=== PATIENT | female | born 1950 | race Hispanic/Latino ===

== ENCOUNTER 2018-06-28 11:42 | Inpatient (IN) | payer MEDICARE ==
--- NOTE | 2018-06-28 12:14 | Emergency Department Report ---
Blank Doc - Documentation Documentation: This is a 67 y.o. female that presents with wound to right heel and left heel. PMH diabetes. She was seen by podiatry this morning and sent here for further evaluation. Ordered labs and XR of bilateral feet. Fast track for further evaluation.
[2018-06-28 12:49] LABS: Basophils # (Auto) 0.1 K/mm3 (0.0-0.1); Basophils % (Auto) 1.1 % (0.0-1.8); Eosinophils # (Auto) 0.3 K/mm3 (0.0-0.4); Eosinophils % (Auto) 3.2 % (0.0-4.3); Hematocrit 38.8 % (30.3-42.9); Hemoglobin 13.5 gm/dl (10.1-14.3); Lymphocytes # (Auto) 1.4 K/mm3 (1.2-5.4); Lymphocytes % (Auto) 14.2 % (13.4-35.0); Mean Corpuscular HGB Conc 35 % (30-34); Mean Corpuscular Volume 95 fl (79-97); Platelet Count 423 K/mm3 (140-440); Red Blood Count 4.07 M/mm3 (3.65-5.03); Red Cell Distribution Width 14.7 % (13.2-15.2)
[2018-06-28 13:14] LABS: Albumin 3.3 g/dL (3.9-5); Calcium 9.5 mg/dL (8.4-10.2)
[2018-06-28] MEDS ORDERED: VANCOMYCIN 1,500 MG in NACL 0.9% 500 ML 500 ML IV ONE (14:20)
[2018-06-28] MEDS ORDERED: ZOFRAN IV ONE (14:21)
[2018-06-28] MEDS ORDERED: MORPHINE IV ONE (14:21)
--- NOTE | 2018-06-28 14:31 | Emergency Department Report ---
- General Chief Complaint: Wound/Laceration Stated Complaint: INFECTION ON FEET Time Seen by Provider: 06/28/18 12:10 Source: patient, family Mode of arrival: Wheelchair Limitations: No Limitations - History of Present Illness Initial Comments: 67 year old female past medical history of diabetes and end-stage renal disease on dialysis presents to the hospital complaining of infection to bilateral tubal foot ulcers. Patient recently moved to the area. After seeing a primary care doctor she was referred to a foot doctor today. After initial evaluation patient was told to go to [facility] for admission and antibiotics. Patient cannot recall the name of the physician that evaluated her but the group is [facility] located at [address] [place] [address], [address] [place] [address]. Patient has had these foot ulcers for "a while" but had been worse for the last several weeks. She complains of pain and drainage she denies fevers and states that her glucose has been fairly controlled. Patient receives dialysis Wednesday, Wednesday, and Wednesday. Spd Tech: Dr. Lincoln - Related Data Allergies Allergy/AdvReac Type Severity Reaction Status Date / Time No Known Allergies Allergy Verified 06/28/18 12:11 ED Review of Systems ROS: Stated complaint: INFECTION ON FEET Other details as noted in HPI Comment: All other systems reviewed and negative ED Past Medical Hx - Past Medical History Previous Medical History?: Yes Hx Diabetes: Yes Hx Renal Disease: Yes (dialysis Wednesday, Wednesday, Wednesday) - Surgical History Additional Surgical History: Hyst, knee - Social History Smoking Status: Current Every Day Smoker Substance Use Type: None ED Physical Exam - General Limitations: No Limitations - Other Other exam information: General: No limitations, patient is alert in no acute distress Head exam: Atraumatic, normocephalic Eyes exam: Normal appearance ENT: Moist mucous membrane Neck exam: Normal inspection, full range of motion, no meningismus nontender Respiratory exam: Clear to auscultation bilateral, no wheezes, rales, crackles Cardiovascular: Regular rhythm without tachycardia Abdomen: Soft, nondistended, and nontender, with normal bowel sounds, no rebound, or guarding Extremity: Full range of motion Back: Normal Inspection, full range of motion, no tenderness Neurologic: Alert, oriented x3, cranial nerves intact, no motor or sensory deficit Psychiatric: normal affect, normal mood Skin: Bilateral foot ulcers. Right foot has a 3 cm ulceration at the medial laureen t at the first MTP joint with yellow exudate. Positive warmth or erythema. Left foot has a 2-3 cm heel ulceration with yellow exudate. ED Course Vital Signs 06/28/18 12:11 Temperature 99.2 F Pulse Rate 100 H Respiratory 20 Rate Blood Pressure 134/82 O2 Sat by Pulse 97 Oximetry ED Medical Decision Making - Lab Data Result diagrams: 06/28/18 12:33 06/28/18 12:33 Lab Results 06/28/18 06/28/18 Range/Units 12:33 12:33 WBC 9.6 (4.5-11.0) K/mm3 RBC 4.07 (3.65-5.03) M/mm3 Hgb 13.5 (10.1-14.3) gm/dl Hct 38.8 (30.3-42.9) % MCV 95 (79-97) fl MCH 33 H (28-32) pg MCHC 35 H (30-34) % RDW 14.7 (13.2-15.2) % Plt Count 423 (140-440) K/mm3 Lymph % (Auto) 14.2 (13.4-35.0) % [place] % (Auto) 10.0 H (0.0-7.3) % Eos % (Auto) 3.2 (0.0-4.3) % Baso % (Auto) 1.1 (0.0-1.8) % Lymph # 1.4 (1.2-5.4) K/mm3 [place] # 1.0 H (0.0-0.8) K/mm3 Eos # 0.3 (0.0-0.4) K/mm3 Baso # 0.1 (0.0-0.1) K/mm3 Seg Neutrophils % 71.5 H (40.0-70.0) % Seg Neutrophils # 6.8 (1.8-7.7) K/mm3 Sodium 140 (137-145) mmol/L Potassium 4.1 (3.6-5.0) mmol/L Chloride 95.1 L (98-107) mmol/L Carbon Dioxide 27 (22-30) mmol/L Anion Gap 22 mmol/L BUN 22 H (7-17) mg/dL Creatinine 3.0 H (0.7-1.2) mg/dL Estimated GFR 16 ml/min BUN/Creatinine Ratio 7 % Glucose 243 H (65-100) mg/dL Calcium 9.5 (8.4-10.2) mg/dL Total Bilirubin 0.40 (0.1-1.2) mg/dL AST 33 (5-40) units/L ALT 31 (7-56) units/L Alkaline Phosphatase 196 H (35-129) units/L Total Protein 8.0 (6.3-8.2) g/dL Albumin 3.3 L (3.9-5) g/dL Albumin/Globulin Ratio 0.7 % - Medical Decision Making Positive bilateral diabetic foot infection/ulcerations. Vancomycin provided. Morphine/Zofran for pain. ESR and foot x-ray report pending at disposition. - Differential Diagnosis osteomyelitis, cellulitis, infected diabetic foot ulcer Critical Care Time: No Critical care attestation.: If time is entered above; I have spent that time in minutes in the direct care of this critically ill patient, excluding procedure time. ED Disposition Clinical Impression: Diabetic foot infection, ESRD on dialysis Disposition: OP ADMIT IP TO THIS HOSP Is pt being admited?: Yes Condition: Stable Time of Disposition: 14:33 (Dr Mitchell/hosp)
--- NOTE | 2018-06-28 14:51 | History and Physical Report ---
History of Present Illness Chief complaint: My foot is infected History of present illness: 67 YO Female with ESRD on HD(M,W,F), Nicotine Dependence, DM, present to ED for evaluation. Pt states that she has experienced redness, swelling, and purulent discharge from her heel wounds over the past week with worsening symptoms over the past 5 days. Pt was seen and evaluated by her PCP today and found to have diabetic foot ulcers. Pt instructed to seek further care at [facility]. Pt seen and evaluated in ED and found to have ESRD, and Bilateral foot cellulitis. Pt admitted to medical floor. Pt states that she is unsure of who her bed teacher is. Pt denies fever, chills, CP, palpitations, NVD, Trauma, BRBPR, productive c ough, or recent ill contacts. Pt admitted to [facility]. Nephrology consulted in ED. Past History Past Medical History: diabetes, ESRD Past Surgical History: Other (AVFistula) Social history: single, smoking Family history: diabetes Medications and Allergies Allergies Allergy/AdvReac Type Severity Reaction Status Date / Time No Known Allergies Allergy Verified 06/28/18 12:11 Home Medications Medication Instructions Recorded Confirmed Last Taken Type Amiodarone [Cordarone 200 MG TAB] 200 mg PO QDAY 06/28/18 06/28/18 Unknown History AtorvaSTATin [Lipitor] 10 mg PO QHS 06/28/18 06/28/18 Unknown History Clopidogrel Bisulfate [Plavix] 75 mg PO QDAY 06/28/18 06/28/18 Unknown History Doxepin [SINEquan] 100 mg PO QHS 06/28/18 06/28/18 Unknown History Gabapentin [Neurontin] 100 mg PO TID 06/28/18 06/28/18 Unknown History Insulin Detemir [Levemir Flextouch] 8 units SUB-Q DAILY 06/28/18 06/28/18 Unknown History Metoprolol Succinate [Toprol Xl] 25 mg PO DAILY 06/28/18 06/28/18 Unknown History Morphine Sulfate [Morphine Sulfate 60 mg PO Q12H 06/28/18 06/28/18 Unknown History ER] NIFEdipine [Nifedipine ER] 30 mg PO QDAY 06/28/18 06/28/18 Unknown History Oxycodone HCl [Roxicodone] 30 mg PO Q8H PRN 06/28/18 06/28/18 Unknown History Propafenone HCl 150 mg PO BID 06/28/18 06/28/18 Unknown History Sertraline [Zoloft] 100 mg PO QDAY 06/28/18 06/28/18 Unknown History Active Meds: Active Medications Vancomycin HCl 1,500 mg/ (Sodium Chloride) 530 mls @ 333 mls/hr IV ONCE ONE; Protocol Stop: 06/28/18 15:55 Review of Systems Constitutional: no weight loss, no weight gain, no fever, no chills Ears, nose, mouth and throat: no ear pain, no ear discharge, no tinnitis, no decreased hearing, no nose pain, no nasal congestion Breasts: no change in shape, no swelling, no mass Cardiovascular: no chest pain, no orthopnea, no palpitations, no rapid/irregular heart beat, no edema Respiratory: no cough, no cough with sputum, no excessive sputum Gastrointestinal: no abdominal pain, no nausea, no vomiting, no diarrhea, no constipation, no change in bowel habits Genitourinary Female: no pelvic pain, no flank pain, no menorrhagia, no dysuria, no urinary frequency, no urgency Menstruation: no premenarcheal, no post hysterectomy, no ammenorrhea, no ammenorrhea on BC, no period normal Rectal: no pain, no incontinence, no bleeding Musculoskeletal: no neck pain, no shooting arm pain, no arm numbness/tingling, no low back pain Integumentary: no rash, no pruritis, no redness, no sores, no wounds Neurological: no transient paralysis, no paralysis, no weakness, no parathesias, no numbness, no tingling Psychiatric: no anxiety, no memory loss, no change in sleep habits, no sleep disturbances, no insomnia, no change in appetite Endocrine: no cold intolerance, no heat intolerance, no polyphagia, no excessive thirst Hematologic/Lymphatic: no easy bruising, no easy bleeding Allergic/Immunologic: no urticaria, no allergic rhinitis, no wheezing Exam - Constitutional Vitals: Temp Pulse Resp BP Pulse Ox 99.2 F 100 H 20 134/82 97 06/28/18 12:11 06/28/18 12:11 06/28/18 12:11 06/28/18 12:11 06/28/18 12:11 General appearance: Present: mild distress - EENT Eyes: Present: PERRL ENT: hearing intact, clear oral mucosa - Neck Neck: Present: supple, normal ROM - Respiratory Respiratory effort: normal Respiratory: bilateral: CTA - Cardiovascular Heart Sounds: Present: S1 & S2. Absent: rub, click - Extremities Extremities: pulses symmetrical, No edema Peripheral Pulses: within normal limits - Abdominal General gastrointestinal: Present: soft, non-tender, non-distended, normal bowel sounds Female genitourinary: Present: normal - Integumentary Integumentary: Present: clear, warm, dry - Musculoskeletal Musculoskeletal: gait normal, strength equal bilaterally - Psychiatric Psychiatric: appropriate mood/affect, intact judgment & insight - Neurologic Neurologic: CNII-XII intact, moves all extremities Results - Labs CBC & Chem 7: 06/28/18 12:33 06/28/18 12:33 Labs: Abnormal lab results 06/28/18 06/28/18 Range/Units 12:33 12:33 MCH 33 H (28-32) pg MCHC 35 H (30-34) % [place] % (Auto) 10.0 H (0.0-7.3) % [place] # 1.0 H (0.0-0.8) K/mm3 Seg Neutrophils % 71.5 H (40.0-70.0) % Chloride 95.1 L (98-107) mmol/L BUN 22 H (7-17) mg/dL Creatinine 3.0 H (0.7-1.2) mg/dL Glucose 243 H (65-100) mg/dL Alkaline Phosphatase 196 H (35-129) units/L Albumin 3.3 L (3.9-5) g/dL Assessment and Plan - Patient Problems (1) ESRD on dialysis Current Visit: Yes Status: Acute Plan to address problem: Nephrology consulted in ED, strict I/O, daily weight, avoid nephrotoxic agents, supportive care, dialysis as per renal team. (2) Diabetes Current Visit: Yes Status: Acute Plan to address problem: ADA diet, insulin, accu check (3) Diabetic foot infection Current Visit: Yes Status: Acute Plan to address problem: IV antibiotic therapy, BLE MRI to evaluate for osteomyelitis, wound care, (4) DVT prophylaxis Current Visit: Yes Status: Acute Plan to address problem: SCD to BLE while in bed.
[2018-06-28] MEDS ORDERED: SODIUM CHLORIDE FLUSH SYRINGE 10 ML IV PRN (14:53)
[2018-06-28] MEDS ORDERED: PROVENTIL IH PRN (14:53)
[2018-06-28] MEDS ORDERED: ZOFRAN IV PRN (14:53)
[2018-06-28] MEDS ORDERED: TYLENOL PO PRN (14:53)
--- NOTE | 2018-06-28 15:47 | XRay Report ---
PROCEDURE: XR FOOT BILAT 2V TECHNIQUE: Both feet radiograph, 2 views each. HISTORY: wounds to alicia feet COMPARISONS: None currently available. FINDINGS: There is no acute fracture. There is no evidence for healing fracture. There is no acute dislocation. No significant arthrosis. RIGHT: Achilles enthesophyte and calcaneal plantar spur. Mild to moderate arthrosis at the midfoot, 1st MTP joint, and interphalangeal joints. Cortical irregularity and erosion at the lateral aspect of the 5th metatarsal head. Vascular calcifications. There is no acute dislocation. There is no acute fracture. There is no evidence for healing fracture. There are no suspicious osseous lesions. There are no radiopaque foreign objects. LEFT: Achilles enthesophyte and calcaneal plantar spur. Mild arthrosis at the midfoot and interphalangeal joints. Vascular calcifications. There is no acute dislocation. There is no acute fracture. There is no evidence for healing fracture. There is no cortical destruction to suggest osteomyelitis. There are no suspicious osseous lesions. There are no radiopaque foreign objects. IMPRESSION: * Arthritic erosion versus cortical destruction at the 5th metatarsal head. Please correlate for pos sible osteomyelitis. * Multifocal arthrosis in both feet. * Vascular calcifications. This document is electronically signed by Samm Tellez MD., June 28 2018 03:45:37 PM ET
[2018-06-28] MEDS ORDERED: NON-FORMULARY (Oxycodone Hcl [Roxicodone] 30 MG) PO SCH (17:00)
[2018-06-28] MEDS ORDERED: MORPHINE SULFATE 60 MG PO SCH (17:00)
[2018-06-28] MEDS ORDERED: NON-FORMULARY (Oxycodone Hcl [Roxicodone] 30 MG) PO PRN (17:28)
[2018-06-28] MEDS: MS CONTIN ER PO SCH (17:42)
[2018-06-28] MEDS ORDERED: VANCOMYCIN 1,000 MG in NACL 0.9% 500 ML 500 ML IV ONE (19:27)
[2018-06-28] MEDS ORDERED: VANCOMYCIN/NS 1 GM/250 ML 1 GM/250 ML BAG IV SCH (20:00)
[2018-06-28] MEDS: NEURONTIN PO SCH (20:27)
[2018-06-28] MEDS: ROXICODONE PO PRN (20:27)
[2018-06-28] MEDS: SINEquan PO SCH (22:13)
[2018-06-28] MEDS: RYTHMOL PO SCH (22:13)
[2018-06-28] MEDS: SODIUM CHLORIDE FLUSH SYRINGE 10 ML IV SCH (22:14)
[2018-06-29] MEDS: MS CONTIN ER PO SCH (06:00)
[2018-06-29] MEDS: NEURONTIN PO SCH ×3 (07:29→20:38)
[2018-06-29] MEDS ORDERED: INSULIN DETEMIR 8 UNIT SUB-Q SCH (10:00)
[2018-06-29] MEDS ORDERED: NIFEDIPINE 30 MG PO SCH (10:00)
[2018-06-29] MEDS: PLAVIX PO SCH (10:15)
[2018-06-29] MEDS: RYTHMOL PO SCH ×2 (10:15→21:17)
[2018-06-29] MEDS: ZOLOFT PO SCH (10:15)
[2018-06-29] MEDS: CORDARONE PO SCH (10:16)
[2018-06-29] MEDS: LANTUS SUB-Q SCH (10:16)
[2018-06-29] MEDS: TOPROL XL PO SCH (10:16)
[2018-06-29] MEDS: SODIUM CHLORIDE FLUSH SYRINGE 10 ML IV SCH ×2 (10:17→21:17)
[2018-06-29] MEDS: ROXICODONE PO PRN ×2 (10:21→21:07)
--- NOTE | 2018-06-29 11:15 | Progress Note ---
Assessment and Plan Assessment and plan: Patient is a 67 YO Female with ESRD on HD(M,W,F), Nicotine Dependence, DM, chronic pain syndrome on continued opioid medication and recently relocated to [place] from [place] present to ED for evaluation. Pt states that she has experienced redness, swelling, and purulent discharge from her heel wounds over the past week with worsening symptoms over the past 5 days. Pt was seen and evaluated by her PCP today and found to have diabetic foot ulcers. Pt instructed to seek further care at [facility] By the foot doctor. she denies any fever. Pt seen and evaluated in ED and found to have ESRD, and Bilateral foot c ellulitis. Bilateral Diabetic Foot Infection Cellulitis Diabetic Mellitus with Hyperglycemia ESRD on HD Chronic Opioid dependance Plan Continue supportive care Wound care consulted Surgery consult for possible debridment vascular consult for further evaluation in respect to poor wound healing in diabetic patient Continue accucheck and blood glucose control Possible ID consult for duration of Tx if osteomylitis Awaiting imaging study report Continue abx Recommend pain management outpatient DVT/GI prophy History Interval history: Patient is seen today for: Bilateral lower extremity cellulitis with ulceration Seen and examined at bedside; 24hour events reviewed; nursing staff ; no adverse overnight events reported to me; Denies any chest pain, nausea, vomiting, diarrhea No fever noted blood pressure controlled She continues to request for pain medication and requested for IV compression. She uses a wheelchair to get around. Hospitalist Physical - Physical exam Narrative exam: VITAL SIGNS: Reviewed. GENERAL: The patient appeared well nourished and normally developed. Vital signs as documented. HEAD: No signs of head trauma. EYES: Pupils are equal. Extraocular motions intact. EARS: Hearing grossly intact. MOUTH: Oropharynx is normal. NECK: No adenopathy, no JVD. CHEST: Chest with clear breath sounds bilaterally. No wheezes, rales, or rhonchi. CARDIAC: Regular rate and rhythm. S1 and S2, without murmurs, gallops, or rubs. VASCULAR: No Edema. Peripheral pulses normal and equal in all extremities. ABDOMEN: Soft, without detectable tenderness. No sign of distention. No rebound or guarding, and no masses palpated. Bowel Sounds normal. MUSCULOSKELETAL: Good range of motion of all major joints. Extremities without clubbing, cyanosis or edema. NEUROLOGIC EXAM: Alert and oriented x 3. No focal sensory or strength deficits. Speech normal. Follows commands. PSYCHIATRIC: Mood normal. SKIN: Lateral lower extremity ulceration of the heel, lateral aspect of the fluids, with noted drainage. Dressing in place. - Constitutional Vitals: Temp Pulse Resp BP Pulse Ox 98.1 F 87 20 129/64 98 06/29/18 07:10 06/29/18 10:16 06/29/18 07:10 06/29/18 10:16 06/29/18 07:10 General appearance: Present: mild distress Results - Labs CBC & Chem 7: 06/28/18 12:33 06/28/18 12:33 Labs: Laboratory Last Values WBC 9.6 K/mm3 (4.5-11.0) 06/28/18 12:33 RBC 4.07 M/mm3 (3.65-5.03) 06/28/18 12:33 Hgb 13.5 gm/dl (10.1-14.3) 06/28/18 12:33 Hct 38.8 % (30.3-42.9) 06/28/18 12:33 MCV 95 fl (79-97) 06/28/18 12:33 MCH 33 pg (28-32) H 06/28/18 12:33 MCHC 35 % (30-34) H 06/28/18 12:33 RDW 14.7 % (13.2-15.2) 06/28/18 12:33 Plt Count 423 K/mm3 (140-440) 06/28/18 12:33 Lymph % (Auto) 14.2 % (13.4-35.0) 06/28/18 12:33 [place] % (Auto) 10.0 % (0.0-7.3) H 06/28/18 12:33 Eos % (Auto) 3.2 % (0.0-4.3) 06/28/18 12:33 Baso % (Auto) 1.1 % (0.0-1.8) 06/28/18 12:33 Lymph # 1.4 K/mm3 (1.2-5.4) 06/28/18 12:33 [place] # 1.0 K/mm3 (0.0-0.8) H 06/28/18 12:33 Eos # 0.3 K/mm3 (0.0-0.4) 06/28/18 12:33 Baso # 0.1 K/mm3 (0.0-0.1) 06/28/18 12:33 Seg Neutrophils % 71.5 % (40.0-70.0) H 06/28/18 12:33 Seg Neutrophils # 6.8 K/mm3 (1.8-7.7) 06/28/18 12:33 ESR 68 mm/Hr (0-20) 06/28/18 14:28 Sodium 140 mmol/L (137-145) 06/28/18 12:33 Potassium 4.1 mmol/L (3.6-5.0) 06/28/18 12:33 Chloride 95.1 mmol/L (98-107) L 06/28/18 12:33 Carbon Dioxide 27 mmol/L (22-30) 06/28/18 12:33 Anion Gap 22 mmol/L 06/28/18 12:33 BUN 22 mg/dL (7-17) H 06/28/18 12:33 Creatinine 3.0 mg/dL (0.7-1.2) H 06/28/18 12:33 Estimated GFR 16 ml/min 06/28/18 12:33 BUN/Creatinine Ratio 7 % 06/28/18 12:33 Glucose 243 mg/dL (65-100) H 06/28/18 12:33 POC Glucose 111 (70-105) H 06/29/18 10:18 Calcium 9.5 mg/dL (8.4-10.2) 06/28/18 12:33 Total Bilirubin 0.40 mg/dL (0.1-1.2) 06/28/18 12:33 AST 33 units/L (5-40) 06/28/18 12:33 ALT 31 units/L (7-56) 06/28/18 12:33 Alkaline Phosphatase 196 units/L (35-129) H 06/28/18 12:33 Total Protein 8.0 g/dL (6.3-8.2) 06/28/18 12:33 Albumin 3.3 g/dL (3.9-5) L 06/28/18 12:33 Albumin/Globulin Ratio 0.7 % 06/28/18 12:33 - Imaging and Cardiology Imaging and Cardiology: FOOT XRAY: ARTHRITIC EROSION VS CORTICAL DESTRUCTION AT THE 5TH METATARSAL HEAD. MULTIFOCAL ARTHROSIS IN BOTH FEET. VASCULAR CALCIFICATIONS
--- NOTE | 2018-06-29 12:21 | Consultation ---
History of Present Illness - Reason for Consult Consult date: 06/29/18 end stage renal disease - History of Present Illness This is a 67 year old female who presented to this E.R for management of her diabetic wounds. Patient was referred to [facility] wound care clinic by this Nephrology [employer] and patient went there yesterday but they advised patient to go to the E.R after examining her wounds due to severity of wound infection however, patient came to this E.R instead as it is closer to her home. Patient has history of ESRD and is on hemodialysis every M,W,F at [facility] under Dr. Lincoln/Breanna Zeng NP. We are being consulted for management of this patient's ESRD. Past History Past Medical History: diabetes, ESRD Past Surgical History: Other (AV Fistula) Social history: single, smoking Family history: diabetes Medications and Allergies Allergies Allergy/AdvReac Type Severity Reaction Status Date / Time No Known Allergies Allergy Verified 06/28/18 12:11 Home Medications Medication Instructions Recorded Confirmed Last Taken Type Amiodarone [Cordarone 200 MG TAB] 200 mg PO QDAY 06/28/18 06/28/18 Unknown History AtorvaSTATin [Lipitor] 10 mg PO QHS 06/28/18 06/28/18 Unknown History Clopidogrel Bisulfate [Plavix] 75 mg PO QDAY 06/28/18 06/28/18 Unknown History Doxepin [SINEquan] 100 mg PO QHS 06/28/18 06/28/18 Unknown History Gabapentin [Neurontin] 100 mg PO TID 06/28/18 06/28/18 Unknown History Insulin Detemir [Levemir Flextouch] 8 units SUB-Q DAILY 06/28/18 06/28/18 Unknown History Metoprolol Succinate [Toprol Xl] 25 mg PO DAILY 06/28/18 06/28/18 Unknown History Morphine Sulfate [Morphine Sulfate 60 mg PO Q12H 06/28/18 06/28/18 Unknown History ER] NIFEdipine [Nifedipine ER] 30 mg PO QDAY 06/28/18 06/28/18 Unknown History Oxycodone HCl [Roxicodone] 30 mg PO Q8H PRN 06/28/18 06/28/18 Unknown History Propafenone HCl 150 mg PO BID 06/28/18 06/28/18 Unknown History Sertraline [Zoloft] 100 mg PO QDAY 06/28/18 06/28/18 Unknown History Active Meds: Active Medications Acetaminophen (Tylenol) 650 mg PO Q4H PRN PRN Reason: Pain MILD(1-3)/Fever >100.5/LIANG Albuterol (Proventil) 2.5 mg IH Q4HRT PRN PRN Reason: Shortness Of Breath Amiodarone HCl (Cordarone) 200 mg PO QDAY [facility] Last Admin: 06/29/18 10:16 Dose: 200 mg Documented by: Atorvastatin Calcium (Lipitor) 10 mg PO QHS [facility] Last Admin: 06/28/18 22:13 Dose: 10 mg Documented by: Clopidogrel Bisulfate (Plavix) 75 mg PO QDAY [facility] Last Admin: 06/29/18 10:15 Dose: 75 mg Documented by: Doxepin HCl (Sinequan) 100 mg PO QHS [facility] Last Admin: 06/28/18 22:13 Dose: 100 mg Documented by: Gabapentin (Neurontin) 100 mg PO TID [facility] Last Admin: 06/29/18 07:29 Dose: 100 mg Documented by: Insulin Glargine (Lantus) 8 units SUB-Q QDAY [facility] Last Admin: 06/29/18 10:16 Dose: Not Given Documented by: Metoprolol Succinate (Toprol Xl) 25 mg PO DAILY [facility] Last Admin: 06/29/18 10:16 Dose: 25 mg Documented by: Morphine Sulfate (Ms Contin Er) 60 mg PO Q12H [facility] Last Admin: 06/29/18 06:00 Dose: 60 mg Documented by: Ondansetron HCl (Zofran) 4 mg IV Q8H PRN PRN Reason: Nausea And Vomiting Oxycodone HCl (Roxicodone) 30 mg PO Q8H PRN PRN Reason: Pain, Moderate (4-6) Last Admin: 06/29/18 10:21 Dose: 30 mg Documented by: Propafenone HCl (Rythmol) 150 mg PO BID [facility] Last Admin: 06/29/18 10:15 Dose: 150 mg Documented by: Sertraline HCl (Zoloft) 100 mg PO QDAY [facility] Last Admin: 06/29/18 10:15 Dose: 100 mg Documented by: Sodium Chloride (Sodium Chloride Flush Syringe 10 Ml) 10 ml IV BID [facility] Last Admin: 06/29/18 10:17 Dose: 10 ml Documented by: Sodium Chloride (Sodium Chloride Flush Syringe 10 Ml) 10 ml IV PRN PRN PRN Reason: LINE FLUSH Review of Systems Constitutional: fatigue, no weight loss, no weight gain, no fever, no chills Ears, nose, mouth and throat: no ear pain, no ear discharge, no tinnitis, no decreased hearing, no nose pain, no nasal congestion Cardiovascular: no chest pain, no orthopnea, no palpitations, no rapid/irregular heart beat Respiratory: no cough with sputum, no excessive sputum, no hemoptysis Gastrointestinal: no nausea, no vomiting, no diarrhea, no constipation, no change in bowel habits Musculoskeletal: no neck stiffness, no neck pain, no shooting arm pain, no arm numbness/tingling, no low back pain Integumentary: wounds Neurological: no head injury, no transient paralysis, no paralysis Psychiatric: no anxiety, no memory loss, no change in sleep habits, no sleep disturbances Endocrine: no cold intolerance, no heat intolerance, no polyphagia, no excessive thirst Exam - Vital Signs Vital signs: Vital Signs Temp Pulse Resp BP Pulse Ox 99.2 F 100 H 20 134/82 97 06/28/18 12:11 06/28/18 12:11 06/28/18 12:11 06/28/18 12:11 06/28/18 12:11 - General Appearance General appearance: well-developed, well-nourished, fatigue EENT: ATNC, PERRL, hearing intact, vision intact Neck: Present: neck supple, trachea midline Respiratory: Decreased Breath Sounds Heart: regular, S1S2 Gastrointestinal: Present: normoactive bowel sounds Integumentary: warm and dry, ulcer Neurologic: alert and oriented x3 Musculoskeletal: Present: joint swelling, other (Gauze dressing to wounds noted on feet. Left AVF intact) Results - Lab Results 06/28/18 12:33 06/28/18 12:33 Most recent lab results Calcium 9.5 mg/dL (8.4-10.2) 06/28/18 12:33 Assessment and Plan End Stage Renal Disease on hemodialysis: -Hemodialysis today for UF and clearance -Fluid restriction of 1 liter per day -Renally dose medications -Obtain daily weights -Monitor I/O's -Assess dialysis needs daily Bilateral Diabetic Foot Infection: Cellulitis: -Wound care onboard -Foot x-ray- Arthritic erosion vs cortical destruction at the 5th metatarsal head. Correlate for possible osteoarthritis. -MRI of lower extremity-pending -Vascular consult and General surgery consulted for possible wound debridement vs other interventions Diabetic Mellitus: -On Insulin -As per primary team Chronic Pain: Narcotic Dependence: -On Narcotics -As per primary
--- NOTE | 2018-06-29 13:10 | Magnetic Resonance Report ---
MRI LEFT FOOT AND ANKLE WITHOUT CONTRAST: 06/29/18 CLINICAL: Bilateral soft tissue wounds of the feet. COMPARISON:None. TECHNIQUE: Sagittal, coronal and axial T1, coronal and axial T2 fat sat, sagittal STIR noncontrast sequences on a 1.5 Angelica magnet. The images are merely upper the midfoot and hindfoot with only the forefoot imaged on sagittal sequences. FINDINGS: A soft tissue ulcer of the medial hindfoot with a tract of air extending to bone. There is mild soft tissue edema adjacent to the tract. The calcaneus is intact with no erosion of the cortex and no marrow edema. The rest of the bones are normal. Mild deep soft tissue edema of the medial midfoot and proximal forefoot. No soft tissue abscess or fluid collection. Mild fluid in the lateral talocalcaneal joint. The peroneal tendons are intact and the medial flexor tendons are intact. Mild fluid in the tendon sheaths of the flexor houses longus and flexor digitorum longus tendon sheaths. Mild fluid in the tendon sheath at the conjoined peroneal tendon. Mild diffuse subcutaneous soft tissue edema of the entire foot. IMPRESSION: Soft tissue ulcer of the medial hindfoot with a tract extending to bone. However, no evidence of osteomyelitis. Nonspecific soft tissue edema and no abscess.
--- NOTE | 2018-06-29 13:51 | Magnetic Resonance Report ---
MRI RIGHT FOOT WITHOUT CONTRAST: 06/29/18 CLINICAL: Osteomyelitis. COMPARISON:08/28/18 foot x-ray TECHNIQUE: Sagittal, coronal and axial T1, coronal and axial T2 fat sat, sagittal STIR noncontrast sequences on a 1.5 Angelica magnet. FINDINGS: A small soft tissue ulcer at the medial aspect of the first MTP joint. Marrow edema of the great toe involves the distal first metatarsal and most of the proximal phalanx of the great toe. This is exhibited by heterogeneous decreased T1 signal and hyperintense signal on T2 fat sat and STIR. Focal cortical erosion of the medial aspect of the distal first metatarsal correlates with erosion identified on the x-ray. Similar findings are identified involving the fifth toe. A small soft tissue ulcer at the lateral aspect of the distal fifth metatarsal. Marrow edema of the distal fifth metatarsal with mild decreased T1 signal. T2 hyperintensity involves a greater portion of the fifth metatarsal as well as the phalanges of the fifth toe. Moderate soft tissue edema of the forefoot and midfoot as well as deep soft tissue edema. No abscess. The muscles and tendons are unremarkable. IMPRESSION: Osteomyelitis involving the distal first metatarsal and the distal fifth metatarsal. No abscess.
--- NOTE | 2018-06-29 15:07 | Consultation ---
History of Present Illness Consult date: 06/29/18 Chief complaint: bilateral foot wounds - History of present illness History of present illness: 67 yo F with hx of diabetes, ESRD on HD, and toe wound presents to ER with c/o worsening foot wounds. The patient recently moved here from [place] where she was being followed by a wound care doctor. She has been here for 2 weeks and states she was not receiving the proper wound care because her daughter did not take her to her doctors appointments. She states the wounds were almost healed. No f/c, cp, sob, n/v, abd pain. She has had multiple RLE angiograms in the past and revascularization. She has had multiple debridements of the foot wounds. She has a hx of chronic pain. She continues to smoke but states she has cut down f rom 1 1/2 packs per day to 10 cigarettes every few days. Past History Past Medical History: diabetes, ESRD Past Surgical History: Other (AV Fistula, RLE angiogram, multiple foot debridements) Social history: single, smoking Family history: diabetes Medications and Allergies Allergies Allergy/AdvReac Type Severity Reaction Status Date / Time No Known Allergies Allergy Verified 06/28/18 12:11 Home Medications Medication Instructions Recorded Confirmed Last Taken Type Amiodarone [Cordarone 200 MG TAB] 200 mg PO QDAY 06/28/18 06/28/18 Unknown History AtorvaSTATin [Lipitor] 10 mg PO QHS 06/28/18 06/28/18 Unknown History Clopidogrel Bisulfate [Plavix] 75 mg PO QDAY 06/28/18 06/28/18 Unknown History Doxepin [SINEquan] 100 mg PO QHS 06/28/18 06/28/18 Unknown History Gabapentin [Neurontin] 100 mg PO TID 06/28/18 06/28/18 Unknown History Insulin Detemir [Levemir Flextouch] 8 units SUB-Q DAILY 06/28/18 06/28/18 Unknown History Metoprolol Succinate [Toprol Xl] 25 mg PO DAILY 06/28/18 06/28/18 Unknown History Morphine Sulfate [Morphine Sulfate 60 mg PO Q12H 06/28/18 06/28/18 Unknown History ER] NIFEdipine [Nifedipine ER] 30 mg PO QDAY 06/28/18 06/28/18 Unknown History Oxycodone HCl [Roxicodone] 30 mg PO Q8H PRN 06/28/18 06/28/18 Unknown History Propafenone HCl 150 mg PO BID 06/28/18 06/28/18 Unknown History Sertraline [Zoloft] 100 mg PO QDAY 06/28/18 06/28/18 Unknown History Active Meds: Active Medications Acetaminophen (Tylenol) 650 mg PO Q4H PRN PRN Reason: Pain MILD(1-3)/Fever >100.5/LIANG Albuterol (Proventil) 2.5 mg IH Q4HRT PRN PRN Reason: Shortness Of Breath Amiodarone HCl (Cordarone) 200 mg PO QDAY [facility] Last Admin: 06/29/18 10:16 Dose: 200 mg Documented by: Atorvastatin Calcium (Lipitor) 10 mg PO QHS [facility] Last Admin: 06/28/18 22:13 Dose: 10 mg Documented by: Clopidogrel Bisulfate (Plavix) 75 mg PO QDAY [facility] Last Admin: 06/29/18 10:15 Dose: 75 mg Documented by: Doxepin HCl (Sinequan) 100 mg PO QHS [facility] Last Admin: 06/28/18 22:13 Dose: 100 mg Documented by: Gabapentin (Neurontin) 100 mg PO TID [facility] Last Admin: 06/29/18 13:10 Dose: 100 mg Documented by: Insulin Glargine (Lantus) 8 units SUB-Q QDAY [facility] Last Admin: 06/29/18 10:16 Dose: Not Given Documented by: Metoprolol Succinate (Toprol Xl) 25 mg PO DAILY [facility] Last Admin: 06/29/18 10:16 Dose: 25 mg Documented by: Morphine Sulfate (Ms Contin Er) 60 mg PO Q12H [facility] Last Admin: 06/29/18 06:00 Dose: 60 mg Documented by: Ondansetron HCl (Zofran) 4 mg IV Q8H PRN PRN Reason: Nausea And Vomiting Oxycodone HCl (Roxicodone) 30 mg PO Q8H PRN PRN Reason: Pain, Moderate (4-6) Last Admin: 06/29/18 10:21 Dose: 30 mg Documented by: Propafenone HCl (Rythmol) 150 mg PO BID [facility] Last Admin: 06/29/18 10:15 Dose: 150 mg Documented by: Sertraline HCl (Zoloft) 100 mg PO QDAY [facility] Last Admin: 06/29/18 10:15 Dose: 100 mg Documented by: Sodium Chloride (Sodium Chloride Flush Syringe 10 Ml) 10 ml IV BID [facility] Last Admin: 06/29/18 10:17 Dose: 10 ml Documented by: Sodium Chloride (Sodium Chloride Flush Syringe 10 Ml) 10 ml IV PRN PRN PRN Reason: LINE FLUSH Review of Systems All systems: negative (10 pt ROS performed and negative except for that listed in HPI) Exam Vital Signs Temp Pulse Resp BP Pulse Ox 99.2 F 100 H 20 134/82 97 06/28/18 12:11 06/28/18 12:11 06/28/18 12:11 06/28/18 12:11 06/28/18 12:11 Narrative exam: Gen: AAOx3. NAD ENT; no scleral icterus or conjunctival pallor CV: S1, S2+ Resp; even and unlabored Ext; dressings on bilateral feet c/d/i. Wound photos reviewed: slough and necrotic tissue of wound bed of bilateral foot wounds, associated cellulitis Results - Labs 06/28/18 12:33 06/28/18 12:33 Abnormal lab results 06/28/18 06/28/18 06/29/18 Range/Units 16:13 21:44 10:18 POC Glucose 199 H 154 H 111 H (70-105) - Imaging Additional studies: MRI bilateral LE Assessment and Plan 67 yo F with 1. necrotic diabetic foot wounds, bilateral 2. diabetes 3. tobacco dependence 4. ESRD on HD Plan: 1. Diabetic, renal diet. Add protein supplements. NPO p MN 2. plan for debridement in OR due to multiple wounds, potential need to debride to bone, and patient being on plavix. I discussed this with patient. She is agreeable and consent obtained. 3. Scheduled for HD today per nephro note 4. IV abx 5. will obtain cultures in OR 6. MRI - no osteo 7. prn pain control - pt on baseline chronic narcotics 8. vascular surgery on board, studies pending. 9. strict glucose control, obtain HbA1C 10. smoking cessation 11. albumin low, will obtain prealbumin. May need public relations assistant consult Thank you, please call with questions.
--- NOTE | 2018-06-29 16:26 | Consultation ---
History of Present Illness - Reason for Consult Consult date: 06/29/18 PAD with Bilateral lower ext Ulcerations Requesting physician: NOHEMI RESENDEZ - History of Present Illness This pt is a 67yo WF admitted via the [facility] ER due to bilateral non-healing lower ext ulcerations and suspected wound infections. The pt has ESRD and is on HD in addition to DM. She recently moved to [place] from [facility]. She states the wounds have been present for ~8months. She reports previous RLE arterial intervention due to underlying vascular dz, but she was unable to further elaborate. Past History Past Medical History: diabetes, ESRD Past Surgical History: Other (AV access, RLE angiogram with intervention, multiple foot debridements) Social history: single, smoking Family history: diabetes Medications and Allergies Allergies Allergy/AdvReac Type Severity Reaction Status Date / Time No Known Allergies Allergy Verified 06/28/18 12:11 Home Medications Medication Instructions Recorded Confirmed Last Taken Type Amiodarone [Cordarone 200 MG TAB] 200 mg PO QDAY 06/28/18 06/28/18 Unknown History AtorvaSTATin [Lipitor] 10 mg PO QHS 06/28/18 06/28/18 Unknown History Clopidogrel Bisulfate [Plavix] 75 mg PO QDAY 06/28/18 06/28/18 Unknown History Doxepin [SINEquan] 100 mg PO QHS 06/28/18 06/28/18 Unknown History Gabapentin [Neurontin] 100 mg PO TID 06/28/18 06/28/18 Unknown History Insulin Detemir [Levemir Flextouch] 8 units SUB-Q DAILY 06/28/18 06/28/18 Unknown History Metoprolol Succinate [Toprol Xl] 25 mg PO DAILY 06/28/18 06/28/18 Unknown History Morphine Sulfate [Morphine Sulfate 60 mg PO Q12H 06/28/18 06/28/18 Unknown History ER] NIFEdipine [Nifedipine ER] 30 mg PO QDAY 06/28/18 06/28/18 Unknown History Oxycodone HCl [Roxicodone] 30 mg PO Q8H PRN 06/28/18 06/28/18 Unknown History Propafenone HCl 150 mg PO BID 06/28/18 06/28/18 Unknown History Sertraline [Zoloft] 100 mg PO QDAY 06/28/18 06/28/18 Unknown History Active Meds: Active Medications Acetaminophen (Tylenol) 650 mg PO Q4H PRN PRN Reason: Pain MILD(1-3)/Fever >100.5/LIANG Albuterol (Proventil) 2.5 mg IH Q4HRT PRN PRN Reason: Shortness Of Breath Amiodarone HCl (Cordarone) 200 mg PO QDAY [facility] Last Admin: 06/29/18 10:16 Dose: 200 mg Documented by: Atorvastatin Calcium (Lipitor) 10 mg PO QHS [facility] Last Admin: 06/28/18 22:13 Dose: 10 mg Documented by: Clopidogrel Bisulfate (Plavix) 75 mg PO QDAY [facility] Last Admin: 06/29/18 10:15 Dose: 75 mg Documented by: Doxepin HCl (Sinequan) 100 mg PO QHS [facility] Last Admin: 06/28/18 22:13 Dose: 100 mg Documented by: Gabapentin (Neurontin) 100 mg PO TID [facility] Last Admin: 06/29/18 13:10 Dose: 100 mg Documented by: Insulin Glargine (Lantus) 8 units SUB-Q QDAY [facility] Last Admin: 06/29/18 10:16 Dose: Not Given Documented by: Metoprolol Succinate (Toprol Xl) 25 mg PO DAILY [facility] Last Admin: 06/29/18 10:16 Dose: 25 mg Documented by: Morphine Sulfate (Ms Contin Er) 60 mg PO Q12H [facility] Last Admin: 06/29/18 06:00 Dose: 60 mg Documented by: Ondansetron HCl (Zofran) 4 mg IV Q8H PRN PRN Reason: Nausea And Vomiting Oxycodone HCl (Roxicodone) 30 mg PO Q8H PRN PRN Reason: Pain, Moderate (4-6) Last Admin: 06/29/18 10:21 Dose: 30 mg Documented by: Propafenone HCl (Rythmol) 150 mg PO BID [facility] Last Admin: 06/29/18 10:15 Dose: 150 mg Documented by: Sertraline HCl (Zoloft) 100 mg PO QDAY [facility] Last Admin: 06/29/18 10:15 Dose: 100 mg Documented by: Sodium Chloride (Sodium Chloride Flush Syringe 10 Ml) 10 ml IV BID [facility] Last Admin: 06/29/18 10:17 Dose: 10 ml Documented by: Sodium Chloride (Sodium Chloride Flush Syringe 10 Ml) 10 ml IV PRN PRN PRN Reason: LINE FLUSH Review of Systems All systems: negative Exam - Constitutional Vitals: Temp Pulse Resp BP Pulse Ox 98.6 F 101 H 20 96/55 96 06/29/18 13:14 06/29/18 13:14 06/29/18 13:14 06/29/18 13:14 06/29/18 13:14 - EENT Eyes: Present: EOM intact ENT: hearing intact - Neck Neck: Present: supple - Respiratory Respiratory effort: normal - Extremities Extremities: normal temperature Extremity abnormal: ulceration (Left medial 1st MP joint and left medial heel. Right medial 1st MP joint and right 5th lateral mp joint with a blackened eschar. A small dry ulcer to the Right lateral ankle. See pictures.), erythema (right forefoot and left heel) - Psychiatric Psychiatric: appropriate mood/affect, intact judgment & insight, cooperative - Neurologic Neurologic: no focal deficits - Additional findings Additional findings: Results - Labs CBC & Chem 7: 06/28/18 12:33 06/28/18 12:33 Labs: Abnormal lab results 06/28/18 06/29/18 Range/Units 21:44 10:18 POC Glucose 154 H 111 H (70-105) Assessment and Plan This pt was admitted with bilateral non-healing wounds to both feet. The wounds show signs of infection, and MRI suggest osteomylitis of the right 1st and 5th metatarsal. General surgery has been consulted for wound care. The pt has been added on to the surgery schedule for wound debridement. A vascular surgery consult has been requested to evaluate for underlying peripheral arterial disease. The pt reports having previous arteriograms with some sort of intervention while in [place], but she was unable to further elaborate. Non-invasive arterial duplex exams with ABIs of the lower extremities have been ordered. Further recommendations based upon these findings. 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
[2018-06-29] MEDS ORDERED: VANCOMYCIN/NS 1 GM/250 ML 1 GM/250 ML BAG IV ONE (20:00)
[2018-06-29] MEDS: SINEquan PO SCH (21:17)
[2018-06-30] MEDS: MS CONTIN ER PO SCH ×3 (02:13→23:27)
[2018-06-30 05:07] LABS: Hematocrit 38.1 % (30.3-42.9); Hemoglobin 12.8 gm/dl (10.1-14.3); Mean Corpuscular HGB Conc 34 % (30-34); Mean Corpuscular Volume 97 fl (79-97); Platelet Count 369 K/mm3 (140-440); Red Blood Count 3.93 M/mm3 (3.65-5.03); Red Cell Distribution Width 14.6 % (13.2-15.2)
[2018-06-30 05:24] LABS: Calcium 9.1 mg/dL (8.4-10.2)
[2018-06-30 05:53] LABS: Prealbumin 0.094 g/L (0.200-0.400)
[2018-06-30 06:37] LABS: Anisocytosis 1+; Basophils % (Manual) 0 % (0.0-1.8); Large Platelets 1+; Poikilocytosis 1+; Total Cells Counted 100
[2018-06-30 06:38] LABS: Platelet Estimate Consistent w Auto
--- NOTE | 2018-06-30 08:51 | Progress Note ---
Assessment and Plan End Stage Renal Disease on hemodialysis: -no indiction for HD today -Fluid restriction of 1 liter per day -Renally dose medications -Obtain daily weights -Monitor I/O's -Assess dialysis needs daily Bilateral Diabetic Foot Infection: Cellulitis: -Wound care onboard -Foot x-ray- Arthritic erosion vs cortical destruction at the 5th metatarsal head. Correlate for possible osteoarthritis. -MRI of lower extremity-pending -Vascular consult and General surgery consulted for possible wound debridement vs other interventions Diabetic Mellitus: -On Insulin -As per primary team Chronic Pain: Narcotic Dependence: -On Narcotics -As per primary Subjective Date of service: 06/30/18 Principal diagnosis: ESRD Interval history: patient was in the OR this AM Objective - Vital Signs Vital signs: Vital Signs - 12hr 06/29/18 06/30/18 06/30/18 22:00 01:41 01:45 Temperature 97.6 F Pulse Rate 113 H Respiratory 20 Rate Blood Pressure 72/38 Blood Pressure 79/41 [Right] O2 Sat by Pulse Oximetry 06/30/18 07:50 Temperature 98.5 F Pulse Rate 75 Respiratory 20 Rate Blood Pressure 114/58 Blood Pressure [Right] O2 Sat by Pulse 94 Oximetry - Lab 06/30/18 04:36 06/30/18 04:36 Most recent lab results Calcium 9.1 mg/dL (8.4-10.2) 06/30/18 04:36 Phosphorus 5.40 mg/dL (2.5-4.5) H 06/30/18 04:36 Medications & Allergies - Medications Allergies/Adverse Reactions: Allergies No Known Allergies Allergy (Verified 06/28/18 12:11) Home Medications: Home Medications Medication Instructions Recorded Confirmed Last Taken Type Amiodarone [Cordarone 200 MG TAB] 200 mg PO QDAY 06/28/18 06/28/18 Unknown History AtorvaSTATin [Lipitor] 10 mg PO QHS 06/28/18 06/28/18 Unknown History Clopidogrel Bisulfate [Plavix] 75 mg PO QDAY 06/28/18 06/28/18 Unknown History Doxepin [SINEquan] 100 mg PO QHS 06/28/18 06/28/18 Unknown History Gabapentin [Neurontin] 100 mg PO TID 06/28/18 06/28/18 Unknown History Insulin Detemir [Levemir Flextouch] 8 units SUB-Q DAILY 06/28/18 06/28/18 Unknown History Metoprolol Succinate [Toprol Xl] 25 mg PO DAILY 06/28/18 06/28/18 Unknown History Morphine Sulfate [Morphine Sulfate 60 mg PO Q12H 06/28/18 06/28/18 Unknown History ER] NIFEdipine [Nifedipine ER] 30 mg PO QDAY 06/28/18 06/28/18 Unknown History Oxycodone HCl [Roxicodone] 30 mg PO Q8H PRN 06/28/18 06/28/18 Unknown History Propafenone HCl 150 mg PO BID 06/28/18 06/28/18 Unknown History Sertraline [Zoloft] 100 mg PO QDAY 06/28/18 06/28/18 Unknown History Active Medications: Generic Name Dose Route Start Last Admin Trade Name Freq PRN Reason Stop Dose Admin Acetaminophen 650 mg 06/28/18 14:53 Tylenol PO Q4H PRN Pain MILD(1-3)/Fever >100.5/LIANG Albuterol 2.5 mg 06/28/18 14:53 Proventil IH Q4HRT PRN Shortness Of Breath Amiodarone HCl 200 mg 06/29/18 10:00 06/29/18 10:16 Cordarone PO 200 mg QDAY JOSEF Administration Atorvastatin Calcium 10 mg 06/28/18 22:00 06/29/18 21:17 Lipitor PO 10 mg QHS JOSEF Administration Clopidogrel Bisulfate 75 mg 06/29/18 10:00 06/29/18 10:15 Plavix PO 75 mg QDAY JOSEF Administration Doxepin HCl 100 mg 06/28/18 22:00 06/29/18 21:17 Sinequan PO 100 mg QHS JOSEF Administration Gabapentin 100 mg 06/28/18 20:00 06/29/18 20:38 Neurontin PO 100 mg TID JOSEF Administration Insulin Glargine 8 units 06/29/18 10:00 06/29/18 10:16 Lantus SUB-Q Not Given QDAY [facility] Metoprolol Succinate 25 mg 06/29/18 10:00 06/29/18 10:16 Toprol Xl PO 25 mg DAILY JOSEF Administration Morphine Sulfate 60 mg 06/28/18 18:00 06/30/18 06:47 Ms Contin Er PO Not Given Q12H [facility] Ondansetron HCl 4 mg 06/28/18 14:53 Zofran IV Q8H PRN Nausea And Vomiting Oxycodone HCl 30 mg 06/28/18 17:33 06/29/18 21:07 Roxicodone PO 30 mg Q8H PRN Administration Pain, Moderate (4-6) Propafenone HCl 150 mg 06/28/18 22:00 06/29/18 21:17 Rythmol PO 150 mg BID JOSEF Administration Sertraline HCl 100 mg 06/29/18 10:00 06/29/18 10:15 Zoloft PO 100 mg QDAY [facility] Administration Sodium Chloride 10 ml 06/28/18 22:00 06/29/18 21:17 Sodium Chloride Flush Syringe 10 Ml IV 10 ml BID [facility] Administration Sodium Chloride 10 ml 06/28/18 14:53 Sodium Chloride Flush Syringe 10 Ml IV PRN PRN LINE FLUSH
[2018-06-30] MEDS: RYTHMOL PO SCH ×3 (09:14→22:54)
[2018-06-30] MEDS: CORDARONE PO SCH ×2 (09:14→10:50)
[2018-06-30] MEDS: NEURONTIN PO SCH ×3 (09:14→23:29)
[2018-06-30] MEDS: PLAVIX PO SCH (09:14)
[2018-06-30] MEDS: ZOLOFT PO SCH (09:15)
[2018-06-30] MEDS: TOPROL XL PO SCH ×2 (09:15→10:49)
[2018-06-30] MEDS ORDERED: SUBLIMAZE IV PRN (10:08)
[2018-06-30] MEDS ORDERED: ZOFRAN IV PRN (10:08)
--- NOTE | 2018-06-30 10:12 | Progress Note ---
Assessment and Plan Assessment and plan: Patient is a 67 YO Female with ESRD on HD(M,W,F), Nicotine Dependence, DM, chronic pain syndrome on continued opioid medication and recently relocated to [place] from [place] present to ED for evaluation. Pt states that she has experienced redness, swelling, and purulent discharge from her heel wounds over the past week with worsening symptoms over the past 5 days. Pt was seen and evaluated by her PCP today and found to have diabetic foot ulcers. Pt instructed to seek further care at [facility] By the foot doctor. she denies any fever. Pt seen and evaluated in ED and found to have ESRD, and Bilateral foot c ellulitis. Bilateral Diabetic Foot Infection Cellulitis Diabetic Mellitus with Hyperglycemia ESRD on HD Chronic Opioid dependance Plan Continue supportive care Wound care consulted Surgery input noted. Patient is for OR debridment today vascular consult for further evaluation in respect to poor wound healing in diabetic patient Continue accucheck and blood glucose control Possible ID consult for duration of Tx if osteomylitis Awaiting imaging study report Continue abx Recommend pain management outpatient DVT/GI prophy History Interval history: Patient is seen today for: Bilateral lower extremity cellulitis with ulceration Seen and examined at bedside; 24hour events reviewed; nursing staff ; no adverse overnight events reported to me; Denies any chest pain, nausea, vomiting, diarrhea No fever noted blood pressure controlled She uses a wheelchair to get around. For Debridement in the OR today Hospitalist Physical - Physical exam Narrative exam: VITAL SIGNS: Reviewed. GENERAL: The patient appeared well nourished and normally developed. Vital signs as documented. HEAD: No signs of head trauma. EYES: Pupils are equal. Extraocular motions intact. EARS: Hearing grossly intact. MOUTH: Oropharynx is normal. NECK: No adenopathy, no JVD. CHEST: Chest with clear breath sounds bilaterally. No wheezes, rales, or rhonchi. CARDIAC: Regular rate and rhythm. S1 and S2, without murmurs, gallops, or rubs. VASCULAR: No Edema. Peripheral pulses normal and equal in all extremities. ABDOMEN: Soft, without detectable tenderness. No sign of distention. No rebound or guarding, and no masses palpated. Bowel Sounds normal. MUSCULOSKELETAL: Good range of motion of all major joints. Extremities without clubbing, cyanosis or edema. NEUROLOGIC EXAM: Alert and oriented x 3. No focal sensory or strength deficits. Speech normal. Follows commands. PSYCHIATRIC: Mood normal. SKIN: Lateral lower extremity ulceration of the heel, lateral aspect of the fluids, with noted drainage. Dressing in place. - Constitutional Vitals: Temp Pulse Resp BP Pulse Ox 98.5 F 75 20 114/58 94 06/30/18 07:50 06/30/18 07:50 06/30/18 07:50 06/30/18 07:50 06/30/18 07:50 General appearance: Present: mild distress Results - Labs CBC & Chem 7: 07/01/18 00:21 07/01/18 04:37 Labs: Laboratory Last Values WBC 9.2 K/mm3 (4.5-11.0) 06/30/18 04:36 RBC 3.93 M/mm3 (3.65-5.03) 06/30/18 04:36 Hgb 12.8 gm/dl (10.1-14.3) 06/30/18 04:36 Hct 38.1 % (30.3-42.9) 06/30/18 04:36 MCV 97 fl (79-97) 06/30/18 04:36 MCH 33 pg (28-32) H 06/30/18 04:36 MCHC 34 % (30-34) 06/30/18 04:36 RDW 14.6 % (13.2-15.2) 06/30/18 04:36 Plt Count 369 K/mm3 (140-440) 06/30/18 04:36 Lymph % (Auto) 14.2 % (13.4-35.0) 06/28/18 12:33 [place] % (Auto) Critical Power Technician 06/30/18 04:36 Eos % (Auto) 3.2 % (0.0-4.3) 06/28/18 12:33 Baso % (Auto) 1.1 % (0.0-1.8) 06/28/18 12:33 Lymph # 1.4 K/mm3 (1.2-5.4) 06/28/18 12:33 [place] # 1.0 K/mm3 (0.0-0.8) H 06/28/18 12:33 Eos # 0.3 K/mm3 (0.0-0.4) 06/28/18 12:33 Baso # 0.1 K/mm3 (0.0-0.1) 06/28/18 12:33 Add Manual Diff Complete 06/30/18 04:36 Total Counted 100 06/30/18 04:36 Seg Neutrophils % 71.5 % (40.0-70.0) H 06/28/18 12:33 Seg Neuts % (Manual) 63.0 % (40.0-70.0) 06/30/18 04:36 Band Neutrophils % 0 % 06/30/18 04:36 Lymphocytes % (Manual) 13.0 % (13.4-35.0) L 06/30/18 04:36 Reactive Lymphs % (Man) 0 % 06/30/18 04:36 Monocytes % (Manual) 17.0 % (0.0-7.3) H 06/30/18 04:36 Eosinophils % (Manual) 7.0 % (0.0-4.3) H 06/30/18 04:36 Basophils % (Manual) 0 % (0.0-1.8) 06/30/18 04:36 Metamyelocytes % 0 % 06/30/18 04:36 Myelocytes % 0 % 06/30/18 04:36 Promyelocytes % 0 % 06/30/18 04:36 Blast Cells % 0 % 06/30/18 04:36 Nucleated RBC % Not Reportable 06/30/18 04:36 Seg Neutrophils # 6.8 K/mm3 (1.8-7.7) 06/28/18 12:33 Seg Neutrophils # Man 5.8 K/mm3 (1.8-7.7) 06/30/18 04:36 Band Neutrophils # 0.0 K/mm3 06/30/18 04:36 Lymphocytes # (Manual) 1.2 K/mm3 (1.2-5.4) 06/30/18 04:36 Abs React Lymphs (Man) 0.0 K/mm3 06/30/18 04:36 Monocytes # (Manual) 1.6 K/mm3 (0.0-0.8) H 06/30/18 04:36 Eosinophils # (Manual) 0.6 K/mm3 (0.0-0.4) H 06/30/18 04:36 Basophils # (Manual) 0.0 K/mm3 (0.0-0.1) 06/30/18 04:36 Metamyelocytes # 0.0 K/mm3 06/30/18 04:36 Myelocytes # 0.0 K/mm3 06/30/18 04:36 Promyelocytes # 0.0 K/mm3 06/30/18 04:36 Blast Cells # 0.0 K/mm3 06/30/18 04:36 WBC Morphology Not Reportable 06/30/18 04:36 Hypersegmented Neuts Not Reportable 06/30/18 04:36 Hyposegmented Neuts Not Reportable 06/30/18 04:36 Hypogranular Neuts Not Reportable 06/30/18 04:36 Smudge Cells Not Reportable 06/30/18 04:36 Toxic Granulation Not Reportable 06/30/18 04:36 Toxic Vacuolation Not Reportable 06/30/18 04:36 Dohle Bodies Not Reportable 06/30/18 04:36 Pelger-Huet Anomaly Not Reportable 06/30/18 04:36 Yohana Rods Not Reportable 06/30/18 04:36 Platelet Estimate Consistent w auto 06/30/18 04:36 Clumped Platelets Not Reportable 06/30/18 04:36 Plt Clumps, EDTA Not Reportable 06/30/18 04:36 Large Platelets 1+ 06/30/18 04:36 Giant Platelets Not Reportable 06/30/18 04:36 Platelet Satelliting Not Reportable 06/30/18 04:36 Plt Morphology Comment Not Reportable 06/30/18 04:36 RBC Morphology Not Reportable 06/30/18 04:36 Dimorphic RBCs Not Reportable 06/30/18 04:36 Polychromasia Not Reportable 06/30/18 04:36 Hypochromasia Not Reportable 06/30/18 04:36 Poikilocytosis 1+ 06/30/18 04:36 Anisocytosis 1+ 06/30/18 04:36 Microcytosis Not Reportable 06/30/18 04:36 Macrocytosis Not Reportable 06/30/18 04:36 Spherocytes Not Reportable 06/30/18 04:36 Pappenheimer Bodies Not Reportable 06/30/18 04:36 Sickle Cells Not Reportable 06/30/18 04:36 Target Cells Not Reportable 06/30/18 04:36 Tear Drop Cells Not Reportable 06/30/18 04:36 Ovalocytes Not Reportable 06/30/18 04:36 Helmet Cells Not Reportable 06/30/18 04:[address] [place] Bodies Not Reportable 06/30/18 04:36 [place] Rings Not Reportable 06/30/18 04:36 [place] Cells Not Reportable 06/30/18 04:36 Bite Cells Not Reportable 06/30/18 04:36 Crenated Cell Not Reportable 06/30/18 04:36 Elliptocytes Not Reportable 06/30/18 04:36 Acanthocytes (Spur) Not Reportable 06/30/18 04:36 Rouleaux Not Reportable 06/30/18 04:36 Hemoglobin C Crystals Not Reportable 06/30/18 04:36 Schistocytes Not Reportable 06/30/18 04:36 Malaria parasites Not Reportable 06/30/18 04:36 ESR 68 mm/Hr (0-20) 06/28/18 14:28 Eric Bodies Not Reportable 06/30/18 04:36 Hem Pathologist Commnt No 06/30/18 04:36 Sodium 139 mmol/L (137-145) 06/30/18 04:36 Potassium 4.0 mmol/L (3.6-5.0) 06/30/18 04:36 Chloride 97.6 mmol/L (98-107) L 06/30/18 04:36 Carbon Dioxide 26 mmol/L (22-30) 06/30/18 04:36 Anion Gap 19 mmol/L 06/30/18 04:36 BUN 17 mg/dL (7-17) 06/30/18 04:36 Creatinine 2.9 mg/dL (0.7-1.2) H 06/30/18 04:36 Estimated GFR 16 ml/min 06/30/18 04:36 BUN/Creatinine Ratio 6 % 06/30/18 04:36 Glucose 162 mg/dL (65-100) H 06/30/18 04:36 POC Glucose 259 (70-105) H 06/29/18 21:40 Hemoglobin A1c 7.3 % (4-6) H 06/30/18 04:36 Calcium 9.1 mg/dL (8.4-10.2) 06/30/18 04:36 Phosphorus 5.40 mg/dL (2.5-4.5) H 06/30/18 04:36 Total Bilirubin 0.40 mg/dL (0.1-1.2) 06/28/18 12:33 AST 33 units/L (5-40) 06/28/18 12:33 ALT 31 units/L (7-56) 06/28/18 12:33 Alkaline Phosphatase 196 units/L (35-129) H 06/28/18 12:33 Total Protein 8.0 g/dL (6.3-8.2) 06/28/18 12:33 Albumin 3.3 g/dL (3.9-5) L 06/28/18 12:33 Albumin/Globulin Ratio 0.7 % 06/28/18 12:33 Prealbumin 0.094 g/L (0.200-0.400) L 06/30/18 04:36 Random Vancomycin 14.5 ug/mL (0-40.0) 06/29/18 16:45
--- NOTE | 2018-06-30 10:27 | Anesthesia Day of Surgery ---
Anesthesia Day of Surgery - Day of Surgery Patient Examined: Yes Patient H&P Reviewed: Yes Patient is NPO: Yes Beta Blockers: Yes
--- NOTE | 2018-06-30 10:30 | Anesthesia Consultation ---
Anesthesia Consult and Med Hx Date of service: 06/30/18 - Airway Anesthetic Teeth Evaluation: Edentulous ROM Head & Neck: Adequate Mental/Hyoid Distance: Adequate Mallampati Class: Class II Intubation Access Assessment: Good - Pre-Operative Health Status ASA Pre-Surgery Classification: ASA3 Proposed Anesthetic Plan: General, MAC - Pulmonary Hx Smoking: Yes (5 cigarettes/day) - Cardiovascular System Hx Hypertension: Yes (Pt states negative stress test a month ago) Hx Cardia Arrhythmia: Yes (A-Fib) Hx Peripheral Vascular Disease: Yes (RLE) - Central Nervous System Hx Psychiatric Problems: No - Endocrine Hx Renal Disease: Yes (dialysis Wednesday, Wednesday, Wednesday) Hx End Stage Renal Disease: Yes (Hemodialysis 18 months M/W/F. HD Yesterday) Hx Non-Insulin Dependent Diabetes: Yes - Other Systems Hx Substance Use: Yes (Chronic Pain. High opioid usage) Hx Cancer: No
[2018-06-30] MEDS ORDERED: NEURONTIN ONE (10:44)
[2018-06-30] MEDS ORDERED: NACL 0.9% 1000 ML 1,000 ML ONE (10:44)
[2018-06-30] MEDS: NEURONTIN PO NR ×2 (10:48→23:03)
--- NOTE | 2018-06-30 10:53 | Event Note ---
Date: 06/30/18 Pt evaluated in Vascular lab. She denies new complaint, but complains of RLE discomfort at the site of her wounds. She is for debridement by General surgery later today. Await the official report of Vascular Lab study, but review of preliminary images suggest significant arterial disease and likely limit her ability to heal wounds. Will make her Npo for possible arterial intervention tomorrow.
[2018-06-30] MEDS ORDERED: NACL 0.9% 1000 ML 1,000 ML IV SCH (11:00)
[2018-06-30] MEDS ORDERED: ANCEF/STERILE WATER 2 GM/20 ML 2 GM/20 ML SYRINGE IV ONE (11:09)
[2018-06-30] MEDS ORDERED: SUBLIMAZE ONE (11:09)
--- NOTE | 2018-06-30 11:21 | Consultation ---
History of Present Illness - Reason for Consult Consult date: 06/30/18 Bilateral foot ulceration, Osteomylitis Requesting physician: DEIDRA OWENS - History of Present Illness This patient is a 67 year old female with a past medical history of diabetes and end-stage renal disease on dialysis presents the [facility] on 06/28/18, c omplaining of infection to bilateral foot ulcers to the right and left heel.She just moved here 2 weeks and and states she has been receiving improper wound care. She reports having multiple RLE angiograms in the past and revascularzation. She also has had multiple debridements of the foot wounds. .She was seen by [facility] this morning and told to come to [facility] for management. In the ED she complains of pain and drainage. On admission WBC 9.6, Creatinine 2.9, HGBA1C 7.3, Temperature 99.2, HR 100, No blood cultures were not drawn. Review of Systems: General: no fever, chills, nightsweats, unintentional weight change, or change in appetite Cutaneous: no rash, pruritus Head: no headaches or injury Eyes: no changes in vision, eye pain, double vision Ears: no ear pain, ear discharge, ringing or hearing loss Nose: no nose bleeding, stuffiness Mouth & throat: no bleeding gums, no horseness, or swollen glands Neck: no pain, node enlargement/lumps, tyroid enlargement or tenderness Respiratory: no cough, wheezing, sputum, hemoptysis, pleuritic chest pain Cardiovascular: no chest pain, leg edema, cyanosis, SILVA, orthopnea Musculoskeletal: Bilateral foot ulcers, + drainage, tenderness Gastrointestinal: no nausea, vomiting, hematemesis, diarrhea, constipation, melena, bright red blood in stools, fecal incontinence, jaundice Genitourinary/Reproductive: no frequent urination, no dysuria, hematuria, incontinence Neurogical: no seizures, no headaches, no weakness, no paresthesias, no loss of speech or vision; no memory loss, no vertigo, no tremors, no numbness Psychiatric: stable mood; no excessive anxiety, sadness or moodiness Past History Past Medical History: diabetes, ESRD Past Surgical History: Other (AV access, RLE angiogram with intervention, multiple foot debridements) Social history: single, smoking Family history: diabetes Medications and Allergies Allergies Allergy/AdvReac Type Severity Reaction Status Date / Time No Known Allergies Allergy Verified 06/28/18 12:11 Home Medications Medication Instructions Recorded Confirmed Last Taken Type Amiodarone [Cordarone 200 MG TAB] 200 mg PO QDAY 06/28/18 06/28/18 Unknown History AtorvaSTATin [Lipitor] 10 mg PO QHS 06/28/18 06/28/18 Unknown History Clopidogrel Bisulfate [Plavix] 75 mg PO QDAY 06/28/18 06/28/18 Unknown History Doxepin [SINEquan] 100 mg PO QHS 06/28/18 06/28/18 Unknown History Gabapentin [Neurontin] 100 mg PO TID 06/28/18 06/28/18 Unknown History Insulin Detemir [Levemir Flextouch] 8 units SUB-Q DAILY 06/28/18 06/28/18 Unknown History Metoprolol Succinate [Toprol Xl] 25 mg PO DAILY 06/28/18 06/28/18 Unknown History Morphine Sulfate [Morphine Sulfate 60 mg PO Q12H 06/28/18 06/28/18 Unknown History ER] NIFEdipine [Nifedipine ER] 30 mg PO QDAY 06/28/18 06/28/18 Unknown History Oxycodone HCl [Roxicodone] 30 mg PO Q8H PRN 06/28/18 06/28/18 Unknown History Propafenone HCl 150 mg PO BID 06/28/18 06/28/18 Unknown History Sertraline [Zoloft] 100 mg PO QDAY 06/28/18 06/28/18 Unknown History Active Meds: Active Medications Acetaminophen (Tylenol) 650 mg PO Q4H PRN PRN Reason: Pain MILD(1-3)/Fever >100.5/LIANG Albuterol (Proventil) 2.5 mg IH Q4HRT PRN PRN Reason: Shortness Of Breath Amiodarone HCl (Cordarone) 200 mg PO QDAY [facility] Last Admin: 06/30/18 10:50 Dose: 200 mg Documented by: Atorvastatin Calcium (Lipitor) 10 mg PO QHS [facility] Last Admin: 06/29/18 21:17 Dose: 10 mg Documented by: Clopidogrel Bisulfate (Plavix) 75 mg PO QDAY [facility] Last Admin: 06/30/18 09:14 Dose: Not Given Documented by: [facility]quan[facility] Admin: 06/29/18 21:17 Dose: 100 mg Documented by: Fentanyl (Sublimaze) 50 mcg IV Q5MIN PRN PRN Reason: Pain , Severe (7-10) Last Admin: 06/30/18 11:14 Dose: 50 mcg Documented by: Gabapentin (Neurontin) 100 mg PO TID [facility] Last Admin: 06/30/18 09:14 Dose: Not Given Documented by: Gabapentin (Neurontin) 300 mg PO PREOP NR Stop: 06/30/18 23:01 Last Admin: 06/30/18 10:48 Dose: 300 mg Documented by: Sodium Chloride (Nacl 0.9% 1000 Ml) 1,000 mls @ 42 mls/hr IV DIRECT [facility] Last Admin: 06/30/18 10:51 Dose: 42 mls/hr Documented by: Cefazolin Sodium (Ancef/Sterile Water 2 Gm/20 Ml) 2 gm in 20 mls @ 80 mls/hr IV PREOP NR; Protocol Stop: 07/01/18 23:14 Insulin Glargine (Lantus) 8 units SUB-Q QDAY [facility] Last Admin: 06/29/18 10:16 Dose: Not Given Documented by: Metoprolol Succinate (Toprol Xl) 25 mg PO DAILY [facility] Last Admin: 06/30/18 10:49 Dose: 25 mg Documented by: Morphine Sulfate (Ms Contin Er) 60 mg PO Q12H [facility] Last Admin: 06/30/18 06:47 Dose: Not Given Documented by: Ondansetron HCl (Zofran) 4 mg IV Q8H PRN PRN Reason: Nausea And Vomiting Ondansetron HCl (Zofran) 4 mg IV ONCE PRN PRN Reason: Nausea And Vomiting Oxycodone HCl (Roxicodone) 30 mg PO Q8H PRN PRN Reason: Pain, Moderate (4-6) Last Admin: 06/29/18 21:07 Dose: 30 mg Documented by: Propafenone HCl (Rythmol) 150 mg PO BID [facility] Last Admin: 06/30/18 10:49 Dose: 150 mg Documented by: Sertraline HCl (Zoloft) 100 mg PO QDAY [facility] Last Admin: 06/30/18 09:15 Dose: Not Given Documented by: Sodium Chloride (Sodium Chloride Flush Syringe 10 Ml) 10 ml IV BID [facility] Last Admin: 06/29/18 21:17 Dose: 10 ml Documented by: Sodium Chloride (Sodium Chloride Flush Syringe 10 Ml) 10 ml IV PRN PRN PRN Reason: LINE FLUSH Physical Examination - Physical Exam Narrative exam: Constitutional: Asleep, easily arousable, cooperative. No acute distress Head, Ears, Nose: Normocephalic, atraumatic. External ears, nose normal Eyes: Conjunctivae/corneas clear. No icterus. No ptosis. Neck: Supple, no meningeal signs Oral: Endentulous , no thrush Cardiovascular: S1, S2 normal. Respiratory: Good air entry, clear to auscultation bilaterally GI: Soft, non-tender; bowel sounds normal. No peritoneal signs Musculoskeletal:right bunion necrtotic diabetic foot ulcer, Right lateral foot Escar, Left medial heel diabetic foot ulcer, left bunion with dry escar. Skin: No rash or abscess. Hem/Lymphatic: No palpable cervical or supraclavicular nodes. No lymphangitis Psych: Mood ok. Affect normal Neurological: Awake, alert, oriented. - Constitutional Vitals: Vital Signs Temp Pulse Resp BP Pulse Ox 98.5 F 82 22 114/63 94 06/30/18 07:50 06/30/18 10:49 06/30/18 11:14 06/30/18 10:49 06/30/18 07:50 Temperature -Last 24 Hours Temperature 98.5 F Temperature 97.6 F Temperature 98.6 F Temperature 97.8 F Temperature 98.8 F Temperature 98.6 F Results - Labs CBC & Chem 7: 06/30/18 04:36 06/30/18 04:36 Labs: Abnormal lab results 06/29/18 06/30/18 06/30/18 Range/Units 21:40 04:36 04:36 MCH 33 H (28-32) pg Lymphocytes % (Manual) 13.0 L (13.4-35.0) % Monocytes % (Manual) 17.0 H (0.0-7.3) % Eosinophils % (Manual) 7.0 H (0.0-4.3) % Monocytes # (Manual) 1.6 H (0.0-0.8) K/mm3 Eosinophils # (Manual) 0.6 H (0.0-0.4) K/mm3 Chloride 97.6 L (98-107) mmol/L Creatinine 2.9 H (0.7-1.2) mg/dL Glucose 162 H (65-100) mg/dL POC Glucose 259 H (70-105) Hemoglobin A1c (4-6) % Phosphorus 5.40 H (2.5-4.5) mg/dL Prealbumin 0.094 L (0.200-0.400) g/L 06/30/18 Range/Units 04:36 MCH (28-32) pg Lymphocytes % (Manual) (13.4-35.0) % Monocytes % (Manual) (0.0-7.3) % Eosinophils % (Manual) (0.0-4.3) % Monocytes # (Manual) (0.0-0.8) K/mm3 Eosinophils # (Manual) (0.0-0.4) K/mm3 Chloride (98-107) mmol/L Creatinine (0.7-1.2) mg/dL Glucose (65-100) mg/dL POC Glucose (70-105) Hemoglobin A1c 7.3 H (4-6) % Phosphorus (2.5-4.5) mg/dL Prealbumin (0.200-0.400) g/L Assessment and Plan Imagimg: Duplex Scan Lower extremity artery: Pending Cultures: No blood cultures drawn A/P: 67-year-old female with a past medical history of diabetes and end-stage renal disease on dialysis. She moved to [place] 2 weeks ago from [place]. complaining of infection to bilateral foot ulcers to the right and left heel She reports having multiple RLE angiograms in the past and revascularzation. She also has had multiple debridements of the foot wounds. .She was seen by [facility] [place] this morning and told to come to [facility] for infection management. In the ED she complains of pain and drainage. Admitted with: 1.Bilateral diabetic v/s arterial foot ulcerations: non-healing wounds to both feet. Per wound care, right bunion necrotic foot ulcer, right lateral foot escar. Left medial heel diabetic foot ulcer, left bunion with dry escar. Right lower extremity MRI reveals osteomylitis involving the 5th distal and 1st dista l metatarsal, no abscess observed. Left lower extremity MRI shows soft tissue ulcer of the medial hindfoot with intact extending bone, no evidence of osteomylitis or abscess. Duplex scan of lower extremity artery pending. S/P debridement today, All 4 wounds debrided sharply to healthy tissue. R medial wound near great toe extends to bone. 2. Type 2 Diabetes: uncontrolled. Hemoglobin A1C 7.3. Recommend tight glycemic control.. 3. ESRD on dialysis: on HD M,W,F. Antibiotics renally dosed. 4. Atherosclerosis : multiple revascularzations in the past., Vascular following for ?peripheral artery disease. Non-invasive arterial duplex exams with ABIs of the lower extremities pending. 5. Tobacco Abuse: 15-10 year tobacco abuse history. States she recently stopped smoking 2 weeks ago. Plan: Start Vancomycin PK dosing Start Cefepime 2 gms every 24 h(CrCl 21.5) Start Flagyl 500mg IV every 8 hours f/u deep wound cultures f/u blood cultures -order CRP, Consider PICC line for 6 weeks of OPAT d/w Dr. Omid Mckinnon, [employer]AL [employer] REPA[employer] [facility] M: [phone] O:[phone]
[2018-06-30] MEDS ORDERED: VERSED ONE (11:50)
[2018-06-30] MEDS ORDERED: KETALAR ONE (11:50)
[2018-06-30] MEDS ORDERED: XYLOCAINE 1% 20 mL ONE (12:07)
[2018-06-30] MEDS ORDERED: XYLOCAINE 1% 20 mL INFILTRATI ONE (12:15)
[2018-06-30] MEDS ORDERED: NACL 0.9% IR ONE (12:15)
[2018-06-30] MEDS ORDERED: VANCOMYCIN PHARMACY TO DOSE IV SCH (14:00)
--- NOTE | 2018-06-30 14:03 | Post Anesthesia Evaluation ---
- Post Anesthesia Evaluation Patient Participated: Yes Airway Patent: Yes Stable Respiratory Function: Yes Nausea/Vomiting: No Temp > 96.8F: Yes Pain Manageable: Yes Adequeate Hydration: Yes Anesthesia Complications: No
--- NOTE | 2018-06-30 14:43 | Post Operative Note ---
Date of procedure: 06/30/18 Pre-op diagnosis: Bilateral infected foot ulcers, PAD Post-op diagnosis: same Findings: Necrotic tissue overlying base of all 4 wounds. All 4 wounds debrided sharply to healthy tissue. R medial wound near great toe extends to bone. measurements (L x W x H) L distal: 1.5cm x1.5cm x0.3cm L heel: 3cm x 2.8cm x 0.6 cm R medial: 3 cm x3cm x 1cm R lateral: 3.5 cm x 2 cm x 0.7cm Procedure: Excisional debridement of bilateral infected foot wounds. Anesthesia: MAC, local Surgeon: ANDREAS REY Estimated blood loss: minimal Pathology: list (wound cultures) Specimen disposition: to lab Condition: stable Disposition: PACU
--- NOTE | 2018-06-30 14:45 | Vascular Lab Report ---
PROCEDURE: VL ARTERIAL DUPLEX LE BILAT TECHNIQUE: Grayscale and color and spectral Doppler ultrasound imaging of the bilateral lower extrem ity arterial systems was performed. HISTORY: Ulceration COMPARISONS: None. FINDINGS: The right ankle-brachial index is 0.72. The left ankle-brachial index is 0.90. There is a large amoun t of calcified atherosclerotic plaque bilaterally. No aneurysm. The bilateral posterior tibial arteri es are completely occluded. The left anterior tibial artery is completely occluded. There is focal st enosis in the proximal aspect of the right superficial femoral artery. Small probable reactive right inguinal lymph node is seen. Peak systolic velocity in centimeters per second and waveform characteristics: Right: RECONDITIONING ASSOCIATE proximal: 93 triphasic RECONDITIONING ASSOCIATE distal: 97 triphasic SFA proximal: 503 DFA: 102 biphasic SFA mid: 68-130 monophasic SFA distal: 65 monophasic Popliteal: 39 monophasic METROLOGY SPECIALIST: No flow BENITO: 41 monophasic Left: RECONDITIONING ASSOCIATE proximal: 125 triphasic RECONDITIONING ASSOCIATE distal: 91 triphasic SFA proximal: 102 triphasic BSA: 96 biphasic SFA mid: 87 biphasic SFA distal: 75 biphasic Popliteal: 62 05/27/2005 biphasic METROLOGY SPECIALIST: No flow BENITO: No flow IMPRESSION: 1. Complete occlusion of the bilateral posterior tibial and left anterior tibial arteries. 2. Focal stenosis of the proximal right superficial femoral artery. 3. Severe bilateral peripheral arterial disease. This document is electronically signed by Faye Faustin., June 30 2018 02:43:15 PM ET
--- NOTE | 2018-06-30 14:46 | Vascular Lab Report ---
PROCEDURE: VL ARTERIAL DUPLEX LE BILAT TECHNIQUE: Grayscale and color and spectral Doppler ultrasound imaging of the bilateral lower extrem ity arterial systems was performed. HISTORY: Ulceration COMPARISONS: None. FINDINGS: The right ankle-brachial index is 0.72. The left ankle-brachial index is 0.90. There is a large amoun t of calcified atherosclerotic plaque bilaterally. No aneurysm. The bilateral posterior tibial arteri es are completely occluded. The left anterior tibial artery is completely occluded. There is focal st enosis in the proximal aspect of the right superficial femoral artery. Small probable reactive right inguinal lymph node is seen. Peak systolic velocity in centimeters per second and waveform characteristics: Right: PUBLIC SERVICE REPRESENTATIVE proximal: 93 triphasic PUBLIC SERVICE REPRESENTATIVE distal: 97 triphasic SFA proximal: 503 DFA: 102 biphasic SFA mid: 68-130 monophasic SFA distal: 65 monophasic Popliteal: 39 monophasic ACCOUNT EXECUTIVE SOFTWARE SALES: No flow BENITO: 41 monophasic Left: PUBLIC SERVICE REPRESENTATIVE proximal: 125 triphasic PUBLIC SERVICE REPRESENTATIVE distal: 91 triphasic SFA proximal: 102 triphasic BSA: 96 biphasic SFA mid: 87 biphasic SFA distal: 75 biphasic Popliteal: 62 05/27/2005 biphasic ACCOUNT EXECUTIVE SOFTWARE SALES: No flow BENITO: No flow IMPRESSION: 1. Complete occlusion of the bilateral posterior tibial and left anterior tibial arteries. 2. Focal stenosis of the proximal right superficial femoral artery. 3. Severe bilateral peripheral arterial disease. This document is electronically signed by Faye Faustin., June 30 2018 02:44:37 PM ET
[2018-06-30] MEDS ORDERED: MAXIPIME/NS 2 GM/100 ML 2 GM/100 ML BAG IV SCH (15:00)
[2018-06-30] MEDS: FLAGYL 500 MG/100 ML 500 MG/100 ML BAG IV SCH ×2 (18:21→23:28)
[2018-06-30] MEDS: SODIUM CHLORIDE FLUSH SYRINGE 10 ML IV SCH ×2 (18:22→22:54)
[2018-06-30] MEDS: LANTUS SUB-Q SCH (18:38)
[2018-06-30] MEDS: ROXICODONE PO PRN (18:39)
[2018-06-30] MEDS ORDERED: LASIX PO ONE (20:00)
[2018-06-30] MEDS: SINEquan PO SCH (22:53)
[2018-07-01 00:46] LABS: Basophils # (Auto) 0.1 K/mm3 (0.0-0.1); Eosinophils # (Auto) 0.5 K/mm3 (0.0-0.4); Eosinophils % (Auto) 4.4 % (0.0-4.3); Hematocrit 35.2 % (30.3-42.9); Hemoglobin 11.8 gm/dl (10.1-14.3); Lymphocytes # (Auto) 1.3 K/mm3 (1.2-5.4); Lymphocytes % (Auto) 12.8 % (13.4-35.0); Mean Corpuscular HGB Conc 34 % (30-34); Mean Corpuscular Volume 97 fl (79-97); Monocytes # (Auto) 1.2 K/mm3 (0.0-0.8); Monocytes % (Auto) 11.4 % (0.0-7.3); Platelet Count 399 K/mm3 (140-440); Red Blood Count 3.64 M/mm3 (3.65-5.03); Red Cell Distribution Width 14.6 % (13.2-15.2)
[2018-07-01 05:55] LABS: Calcium 8.7 mg/dL (8.4-10.2)
[2018-07-01] MEDS ORDERED: ANCEF/STERILE WATER 2 GM/20 ML 2 GM/20 ML SYRINGE IV NR (06:00)
[2018-07-01] MEDS: FLAGYL 500 MG/100 ML 500 MG/100 ML BAG IV SCH ×3 (06:20→21:12)
[2018-07-01] MEDS: MS CONTIN ER PO SCH ×2 (06:36→21:07)
[2018-07-01] MEDS ORDERED: HEPARIN/NS 5000 UNIT/500ML(CATH LAB) 1,000 ML IR ONE (08:18)
[2018-07-01] MEDS ORDERED: XYLOCAINE 2% INFILTRATI ONE (08:18)
--- NOTE | 2018-07-01 08:29 | Progress Note ---
Assessment and Plan Cultures: 06/30/2018Surgical Culture: mixed, culture, GNR, Enterococcus species A/P: 67-year-old female with a past medical history of diabetes and end-stage renal disease on dialysis. She moved to [place] 2 weeks ago from [place]. complaining of infection to bilateral foot ulcers to the right and left heel She reports having multiple RLE angiograms in the past and revascularzation. She also has had multiple debridements of the foot wounds. .She was seen by [facility] orthopedics and sports specialists this morning and told to come to [facility] for infection management. In the ED she complains of pain and drainage. Admitted with: 1.Bilateral diabetic v/s arterial foot ulcerations: non-healing wounds to both feet. Per wound care, right bunion necrotic foot ulcer, right lateral foot escar. Left medial heel diabetic foot ulcer, left bunion with dry escar. Right lower extremity MRI reveals osteomylitis involving the 5th distal and 1st distal metatarsal, no abscess observed. Left lower extremity MRI shows soft tissue ulcer of the medial hindfoot with intact extending bone, no evidence of osteomylitis or abscess. Duplex scan of lower extremity artery pending. S/P debridement today, All 4 wounds debrided sharply to healthy tissue. R medial wound near great toe extends to bone. CRP 7.20 2. Type 2 Diabetes: uncontrolled. Hemoglobin A1C 7.3. Recommend tight glycemic control.. 3. ESRD on dialysis: on HD M,W,F. Antibiotics renally dosed. 4. Severe Bilateral Peripheral Arterial Disease. multiple revascularzations in the past., Non-invasive arterial duplex exams with ABIs of the lower extremities reveal complete occlusion of the bilateral posterior tibial and left anterior tibial arteries. Focal stenosis of the proximal right superficial femoral artery. S/p Angiogram 07/01/18- Vascular following 5. Tobacco Abuse: 15-10 year tobacco abuse history. States she recently stopped smoking 2 weeks ago. Plan: Continue Vancomycin PK dosing, D2 Continue Cefepime 1 gm every 24 h D2 Continue Flagyl 500mg IV every 8 hours, D2 f/u deep wound cultures f/u blood cultures, Consider PICC line for [address] Ospina will be online publisher this weekend , please call for questions [facility] M: [phone] O:[phone] Subjective Date of service: 07/01/18 Principal diagnosis: ESRD Interval history: Patient seen and examined. Asleep, easy to arouse. Complains of right foot pain, Denies rash, SOB, no fevers. Objective - Exam Narrative Exam: Constitutional: Asleep, easily arousable, cooperative. Right foot pain Head, Ears, Nose: Normocephalic, atraumatic. External ears, nose normal Eyes: Conjunctivae/corneas clear. No icterus. No ptosis. Neck: Supple, no meningeal signs Oral: Endentulous , no thrush Cardiovascular: S1, S2 normal. Respiratory: Good air entry, clear to auscultation bilaterally GI: Soft, non-tender; bowel sounds normal. No peritoneal signs Musculoskeletal:right bunion necrotic, diabetic foot ulcer, Right lateral foot Escar, + dressing, Left medial heel diabetic foot ulcer, left bunion with dry escar, +dressing Skin: No rash or abscess. Hem/Lymphatic: No palpable cervical or supraclavicular nodes. No lymphangitis Psych: Mood ok. Affect normal Neurological: Awake, alert, oriented. - Constitutional Vitals: Vital Signs Temp Pulse Resp BP Pulse Ox 98.6 F 82 20 90/48 94 07/01/18 02:00 07/01/18 02:00 07/01/18 02:00 07/01/18 02:00 07/01/18 02:00 Temperature -Last 24 Hours Temperature 98.6 F Temperature 98.2 F Temperature 97.9 F - Labs CBC & Chem 7: 07/01/18 00:21 07/01/18 04:37 Labs: Abnormal lab results 06/30/18 06/30/18 07/01/18 Range/Units 18:40 22:44 00:21 RBC (3.65-5.03) M/mm3 Lymph % (Auto) (13.4-35.0) % Meade % (Auto) (0.0-7.3) % Eos % (Auto) (0.0-4.3) % Meade # (0.0-0.8) K/mm3 Eos # (0.0-0.4) K/mm3 Seg Neutrophils % (40.0-70.0) % BUN (7-17) mg/dL Creatinine (0.7-1.2) mg/dL Glucose (65-100) mg/dL POC Glucose 174 H 190 H (70-105) C-Reactive Protein 7.20 H (0.00-1.30) mg/dL 07/01/18 07/01/18 Range/Units 00:21 04:37 RBC 3.64 L (3.65-5.03) M/mm3 Lymph % (Auto) 12.8 L (13.4-35.0) % Meade % (Auto) 11.4 H (0.0-7.3) % Eos % (Auto) 4.4 H (0.0-4.3) % Meade # 1.2 H (0.0-0.8) K/mm3 Eos # 0.5 H (0.0-0.4) K/mm3 Seg Neutrophils % 70.4 H (40.0-70.0) % BUN 29 H (7-17) mg/dL Creatinine 4.0 H (0.7-1.2) mg/dL Glucose 104 H (65-100) mg/dL POC Glucose (70-105) C-Reactive Protein (0.00-1.30) mg/dL
[2018-07-01] MEDS ORDERED: NACL 0.9% 500 ML 500 ML ONE (09:13)
[2018-07-01] MEDS: VERSED ONE ×3 (09:24→10:24)
[2018-07-01] MEDS: SUBLIMAZE ONE ×3 (09:24→10:24)
[2018-07-01] MEDS: HEPARIN 10,000 UNITS/10 ML ONE ×2 (09:42→10:24)
[2018-07-01] MEDS: PLAVIX PO SCH (10:00)
[2018-07-01] MEDS: LANTUS SUB-Q SCH (10:00)
[2018-07-01] MEDS: RYTHMOL PO SCH ×2 (10:00→21:31)
[2018-07-01] MEDS: ZOLOFT PO SCH (10:00)
[2018-07-01] MEDS: CORDARONE PO SCH (10:00)
[2018-07-01] MEDS: TOPROL XL PO SCH (10:00)
--- NOTE | 2018-07-01 11:02 | Progress Note ---
Assessment and Plan End Stage Renal Disease on hemodialysis: -HD today for clearance and volume removal -Fluid restriction of 1 liter per day -Renally dose medications -Obtain daily weights -Monitor I/O's -Assess dialysis needs daily Bilateral Diabetic Foot Infection: Cellulitis: -Wound care onboard -Foot x-ray- Arthritic erosion vs cortical destruction at the 5th metatarsal head. Correlate for possible osteoarthritis. 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 Objective - Vital Signs Vital signs: Vital Signs - 12hr 07/01/18 02:00 Temperature 98.6 F Pulse Rate 82 Respiratory 20 Rate Blood Pressure 90/48 [Right] O2 Sat by Pulse 94 Oximetry - Lab 07/01/18 00:21 07/01/18 04:37 Most recent lab results Calcium 8.7 mg/dL (8.4-10.2) 07/01/18 04:37 Phosphorus 5.40 mg/dL (2.5-4.5) H 06/30/18 04:36 Medications & Allergies - Medications Allergies/Adverse Reactions: Allergies No Known Allergies Allergy (Verified 06/28/18 12:11) Home Medications: Home Medications Medication Instructions Recorded Confirmed Last Taken Type Amiodarone [Cordarone 200 MG TAB] 200 mg PO QDAY 06/28/18 06/28/18 Unknown History AtorvaSTATin [Lipitor] 10 mg PO QHS 06/28/18 06/28/18 Unknown History Clopidogrel Bisulfate [Plavix] 75 mg PO QDAY 06/28/18 06/28/18 Unknown History Doxepin [SINEquan] 100 mg PO QHS 06/28/18 06/28/18 Unknown History Gabapentin [Neurontin] 100 mg PO TID 06/28/18 06/28/18 Unknown History Insulin Detemir [Levemir Flextouch] 8 units SUB-Q DAILY 06/28/18 06/28/18 Unknown History Metoprolol Succinate [Toprol Xl] 25 mg PO DAILY 06/28/18 06/28/18 Unknown History Morphine Sulfate [Morphine Sulfate 60 mg PO Q12H 06/28/18 06/28/18 Unknown History ER] NIFEdipine [Nifedipine ER] 30 mg PO QDAY 06/28/18 06/28/18 Unknown History Oxycodone HCl [Roxicodone] 30 mg PO Q8H PRN 06/28/18 06/28/18 Unknown History Propafenone HCl 150 mg PO BID 06/28/18 06/28/18 Unknown History Sertraline [Zoloft] 100 mg PO QDAY 06/28/18 06/28/18 Unknown History Active Medications: Generic Name Dose Route Start Last Admin Trade Name Freq PRN Reason Stop Dose Admin Acetaminophen 650 mg 06/28/18 14:53 Tylenol PO Q4H PRN Pain MILD(1-3)/Fever >100.5/LIANG Albuterol 2.5 mg 06/28/18 14:53 Proventil IH Q4HRT PRN Shortness Of Breath Amiodarone HCl 200 mg 06/29/18 10:00 06/30/18 10:50 Cordarone PO 200 mg QDAY JOSEF Administration Atorvastatin Calcium 10 mg 06/28/18 22:00 06/30/18 22:53 Lipitor PO 10 mg QHS JOSEF Administration Clopidogrel Bisulfate 75 mg 06/29/18 10:00 06/30/18 09:14 Plavix PO Not Given QDAY JOSEF Doxepin HCl 100 mg 06/28/18 22:00 06/30/18 22:53 Sinequan PO 100 mg QHS JOSEF Administration Fentanyl 50 mcg 06/30/18 10:08 06/30/18 11:14 Sublimaze IV 50 mcg Q5MIN PRN Administration Pain , Severe (7-10) Gabapentin 100 mg 06/28/18 20:00 06/30/18 23:29 Neurontin PO Not Given TID JOSEF Sodium Chloride 1,000 mls @ 42 mls/hr 06/30/18 11:00 06/30/18 10:51 Nacl 0.9% 1000 Ml IV 42 mls/hr DIRECT JOSEF Administration Cefepime HCl 2 gm in 100 mls @ 200 mls/hr 06/30/18 15:00 06/30/18 18:21 Maxipime/Ns 2 Gm/100 Ml IV 200 mls/hr Q24HR JOSEF Administration Protocol Metronidazole 500 mg in 100 mls @ 100 mls/hr 06/30/18 14:00 07/01/18 06:20 Flagyl 500 Mg/100 Ml IV 100 mls/hr Q8HR JOSEF Administration Protocol Insulin Glargine 8 units 06/29/18 10:00 06/30/18 18:38 Lantus SUB-Q 8 units QDAY JOSEF Administration Metoprolol Succinate 25 mg 06/29/18 10:00 06/30/18 10:49 Toprol Xl PO 25 mg DAILY JOSEF Administration Morphine Sulfate 60 mg 07/01/18 07:00 07/01/18 06:36 Ms Contin Er PO 60 mg Q12H JOSEF Administration Ondansetron HCl 4 mg 06/28/18 14:53 Zofran IV Q8H PRN Nausea And Vomiting Ondansetron HCl 4 mg 06/30/18 10:08 Zofran IV ONCE PRN Nausea And Vomiting Oxycodone HCl 30 mg 06/28/18 17:33 06/30/18 18:39 Roxicodone PO 30 mg Q8H PRN Administration Pain, Moderate (4-6) Propafenone HCl 150 mg 06/28/18 22:00 06/30/18 22:54 Rythmol PO 150 mg BID JOSEF Administration Sertraline HCl 100 mg 06/29/18 10:00 06/30/18 09:15 Zoloft PO Not Given QDAY JOSEF Sodium Chloride 10 ml 06/28/18 22:00 06/30/18 22:54 Sodium Chloride Flush Syringe 10 Ml IV 10 ml BID JOSEF Administration Sodium Chloride 10 ml 06/28/18 14:53 Sodium Chloride Flush Syringe 10 Ml IV PRN PRN LINE FLUSH
--- NOTE | 2018-07-01 11:28 | Operative Report ---
Operative Report Operative Report: Operative note: Date: 07/01/2018 Preoperative diagnosis: Bilateral lower extremity ulcerations with right leg pain Postoperative diagnosis: Same. Operation: Angiogram, atherectomy of right proximal SFA Surgeon: Rosibel Fraga. Asst.: None Anesthesia: Local with moderate sedation EBL: 50 mL Findings: occlusion of proximal SFA, AT and peroneal runoff Indications: 67-year-old female with bilateral location which ulcerations and right lower extremity pain. Noninvasive vascular studies showed SFA disease on the right with decreased ABIs. Patient was discussed risks, benefits and alternative procedure and chose to proceed and signed informed consent. Operative details: Patient was brought to the [employer] [employer] and placed in supine position. Her bilateral groins were prepped and draped in sterile fashion. Timeout was performed. Left femoral artery was accessed after injection of local anesthetic with micropuncture technique. It was changed to 5 Angolan access sheath. Omni flush catheter was positioned and distal aorta and aortoiliac angiogram performed showing no distal aortic and iliac disease. There was proximal SFA occlusion at the takeoff. Using Bentson wire Omni flush catheter was positioned in the right common femoral artery and right close to runoff was performed showing two-vessel runoff. No evidence wire was advanced into profunda femoris artery, patient was heparinized with 5000 units of heparin and 7 x 45 cm destination sheath was placed. Using glide advantage wire and vertebral catheter I was able to engage in advance dose through occluded proximal SFA and confirmed to be intravascular. 7 mm Spider wire was deployed in the mid SFA and using LS Hawk One atherectomy device I made frequent passes at the occluded area directing that into the medial portion. After multiple passes decent lumen of the occluded area was opened. Then intact 6 x 80 mm DCB balloon was used for angioplasty. There was significantly improved flow and no residual stenosis. There was no signs of distal embolization. Spider wire was retrieved. Access site was sealed using 6 Angolan Angio-Seal. Patient tolerated procedure well and was transferred to PACU in stable condition.
--- NOTE | 2018-07-01 11:54 | Operative Report ---
PREOPERATIVE DIAGNOSES: Bilateral infected foot ulcers, peripheral arterial disease. POSTOPERATIVE DIAGNOSES: Bilateral infected foot ulcers, peripheral arterial disease. FINDINGS: Necrotic tissue overlying base of all 4 wounds. Two wounds on the right foot and two wounds on the left foot. All 4 wounds were debrided sharply to healthy tissue. The right medial wound near great toe extends to the bone. Measurements are as follows in length x width x height. Left distal 1.5 cm x 1.5 cm x 0.3 cm, left heel 3 cm x 2.8 cm x 0.6 cm. Right medial 3 cm x 3 cm x 1 cm, right lateral 3.5 cm x 2 cm x 0.7 cm. PROCEDURE: Excisional debridement, bilateral infected foot wound. ANESTHESIA: MAC and local. SURGEON: Jessenia Jade DO. ESTIMATED BLOOD LOSS: Minimal. PATHOLOGY: Wound cultures. ASSESSMENT: Disposition to labs. CONDITION AND DISPOSITION: The patient is stable to PACU. HISTORY OF PRESENT ILLNESS AND INDICATION: The patient is a 67-year-old female with history of diabetes, peripheral arterial disease, bilateral foot wounds, who presented to the hospital with complaints of foul smell and infection of the foot wounds. The patient was previously being cared for in [place] by wound care physician and adult probation officer as well as Vascular Surgery; however, abruptly moved to [place] in the last 2 weeks. It was noted that her wounds did have a foul odor and so this prompted her visit to the Emergency Room. The wounds were found to be infected and debridement recommended. I discussed all risks, benefits, alternatives to surgery with the patient and questions were answered. Consent obtained. PROCEDURE IN DETAIL: The patient was identified in the preoperative area, taken to the operating room, placed on the operating table in supine position. After anesthesia was induced, a bump was placed behind both ankles and the feet were prepped and draped in the usual sterile fashion. Timeout was performed. Local anesthetic was infiltrated into the skin around all wounds prior to debridement. All necrotic eschar and slough was debrided from the skin and subcutaneous tissue of all wounds. This was achieved with sharp dissection using foreceps, scalpel, electrocautery, and curette. The debridement was carried down to healthy tissue, which showed evidence of pinpoint bleeding from the wound bed. The right medial wound near the great toe did extend to the bone and through the joint capsule. The bone was debrided with curette. Wound cultures were obtained from the right foot wounds. Once all of the wounds were debrided adequately, the wounds were irrigated with saline and hemostasis ensured. Hemostasis was achieved with a combination of pressure and electrocautery. The wounds were then all packed with 1 piece of saline moistened gauze respectively. Dry 4 x 4 gauze and ABD pads were placed over the wounds and secured with Kerlix wrap and tape. At the end of the case, all sponge, instrument, sharp counts were correct x 2. The patient tolerated the procedure well and was awoken from anesthesia and transferred to PACU in stable condition. JOB# [id number] YSABEL/RONDA TENA
[2018-07-01] MEDS: BABY ASPIRIN PO SCH (12:00)
[2018-07-01] MEDS: MAXIPIME/NS 1 GM/100 ML 1 GM/100 ML BAG IV SCH (13:00)
--- NOTE | 2018-07-01 13:37 | Progress Note ---
Assessment and Plan Assessment and plan: Patient is a 67 YO Female with ESRD on HD(M,W,F), Nicotine Dependence, DM, chronic pain syndrome on continued opioid medication and recently relocated to [place] from [place] present to ED for evaluation. Pt states that she has experienced redness, swelling, and purulent discharge from her heel wounds over the past week with worsening symptoms over the past 5 days. Pt was seen and evaluated by her PCP today and found to have diabetic foot ulcers. Pt instructed to seek further care at [facility] By the foot doctor. she denies any fever. Pt seen and evaluated in ED and found to have ESRD, and Bilateral foot c ellulitis. Bilateral Diabetic Foot Infection S/P SHARP Debridement in the OR Cellulitis Diabetic Mellitus with Hyperglycemia ESRD on HD Chronic Opioid dependance Plan Continue supportive care Wound care consulted Vascular note: Angiogram done today- Noted to have occlusion of proximal SFA, AT, and peroneal runoff. S/P Angiogram, atherectomy of right proximal SFA Surgery input noted.s/p OR debridment done * Necrotic tissue overlying base of all 4 wounds. All 4 wounds debrided sharply to healthy tissue. R medial wound near great toe extends to bone. measurements (L x W x H) L distal: 1.5cm x1.5cm x0.3cm L heel: 3cm x 2.8cm x 0.6 cm R medial: 3 cm x3cm x 1cm R lateral: 3.5 cm x 2 cm x 0.7cm Continue accucheck and blood glucose control Possible ID consult for duration of Tx if osteomylitis- likely mixed neuropathic +/- arterial ulcers. The one on over right 1st metatarsal seems infected and MRI shows osteomyelitis. Agree with vascular evaluation/arterial dopplers,start cefepime, flagyl and vancomycin....Will probably require IV antibiotics for 6 weeks. PICC line placement Continue abx per ID Recommend pain management outpatient DVT/GI prophy History Interval history: Patient is seen today for: Bilateral lower extremity cellulitis with ulceration Seen and examined at bedside; 24hour events reviewed; nursing staff ; no adverse overnight events reported to me; Denies any chest pain, nausea, vomiting, diarrhea No fever noted blood pressure controlled She uses a wheelchair to get around. For angiogram today Hospitalist Physical - Physical exam Narrative exam: VITAL SIGNS: Reviewed. GENERAL: The patient appeared well nourished and normally developed. Vital signs as documented. HEAD: No signs of head trauma. EYES: Pupils are equal. Extraocular motions intact. EARS: Hearing grossly intact. MOUTH: Oropharynx is normal. NECK: No adenopathy, no JVD. CHEST: Chest with clear breath sounds bilaterally. No wheezes, rales, or rhonchi. CARDIAC: Regular rate and rhythm. S1 and S2, without murmurs, gallops, or rubs. VASCULAR: No Edema. Peripheral pulses normal and equal in all extremities. ABDOMEN: Soft, without detectable tenderness. No sign of distention. No rebound or guarding, and no masses palpated. Bowel Sounds normal. MUSCULOSKELETAL: Good range of motion of all major joints. Extremities without clubbing, cyanosis or edema. NEUROLOGIC EXAM: Alert and oriented x 3. No focal sensory or strength deficits. Speech normal. Follows commands. PSYCHIATRIC: Mood normal. SKIN: Bilateral feet ulceration, dressing in place, some drainage noted. - Constitutional Vitals: Temp Pulse Resp BP Pulse Ox 98.6 F 82 20 90/48 94 07/01/18 02:00 07/01/18 02:00 07/01/18 02:00 07/01/18 02:00 07/01/18 02:00 General appearance: Present: mild distress Results - Labs CBC & Chem 7: 07/01/18 00:21 07/01/18 04:37 Labs: Laboratory Last Values WBC 10.4 K/mm3 (4.5-11.0) 07/01/18 00:21 RBC 3.64 M/mm3 (3.65-5.03) L 07/01/18 00:21 Hgb 11.8 gm/dl (10.1-14.3) 07/01/18 00:21 Hct 35.2 % (30.3-42.9) 07/01/18 00:21 MCV 97 fl (79-97) 07/01/18 00:21 MCH 32 pg (28-32) 07/01/18 00:21 MCHC 34 % (30-34) 07/01/18 00:21 RDW 14.6 % (13.2-15.2) 07/01/18 00:21 Plt Count 399 K/mm3 (140-440) 07/01/18 00:21 Lymph % (Auto) 12.8 % (13.4-35.0) L 07/01/18 00:21 Harlan % (Auto) 11.4 % (0.0-7.3) H 07/01/18 00:21 Eos % (Auto) 4.4 % (0.0-4.3) H 07/01/18 00:21 Baso % (Auto) 1.0 % (0.0-1.8) 07/01/18 00:21 Lymph # 1.3 K/mm3 (1.2-5.4) 07/01/18 00:21 Harlan # 1.2 K/mm3 (0.0-0.8) H 07/01/18 00:21 Eos # 0.5 K/mm3 (0.0-0.4) H 07/01/18 00:21 Baso # 0.1 K/mm3 (0.0-0.1) 07/01/18 00:21 Add Manual Diff Complete 06/30/18 04:36 Total Counted 100 06/30/18 04:36 Seg Neutrophils % 70.4 % (40.0-70.0) H 07/01/18 00:21 Seg Neuts % (Manual) 63.0 % (40.0-70.0) 06/30/18 04:36 Band Neutrophils % 0 % 06/30/18 04:36 Lymphocytes % (Manual) 13.0 % (13.4-35.0) L 06/30/18 04:36 Reactive Lymphs % (Man) 0 % 06/30/18 04:36 Monocytes % (Manual) 17.0 % (0.0-7.3) H 06/30/18 04:36 Eosinophils % (Manual) 7.0 % (0.0-4.3) H 06/30/18 04:36 Basophils % (Manual) 0 % (0.0-1.8) 06/30/18 04:36 Metamyelocytes % 0 % 06/30/18 04:36 Myelocytes % 0 % 06/30/18 04:36 Promyelocytes % 0 % 06/30/18 04:36 Blast Cells % 0 % 06/30/18 04:36 Nucleated RBC % Not Reportable 06/30/18 04:36 Seg Neutrophils # 7.3 K/mm3 (1.8-7.7) 07/01/18 00:21 Seg Neutrophils # Man 5.8 K/mm3 (1.8-7.7) 06/30/18 04:36 Band Neutrophils # 0.0 K/mm3 06/30/18 04:36 Lymphocytes # (Manual) 1.2 K/mm3 (1.2-5.4) 06/30/18 04:36 Abs React Lymphs (Man) 0.0 K/mm3 06/30/18 04:36 Monocytes # (Manual) 1.6 K/mm3 (0.0-0.8) H 06/30/18 04:36 Eosinophils # (Manual) 0.6 K/mm3 (0.0-0.4) H 06/30/18 04:36 Basophils # (Manual) 0.0 K/mm3 (0.0-0.1) 06/30/18 04:36 Metamyelocytes # 0.0 K/mm3 06/30/18 04:36 Myelocytes # 0.0 K/mm3 06/30/18 04:36 Promyelocytes # 0.0 K/mm3 06/30/18 04:36 Blast Cells # 0.0 K/mm3 06/30/18 04:36 WBC Morphology Not Reportable 06/30/18 04:36 Hypersegmented Neuts Not Reportable 06/30/18 04:36 Hyposegmented Neuts Not Reportable 06/30/18 04:36 Hypogranular Neuts Not Reportable 06/30/18 04:36 Smudge Cells Not Reportable 06/30/18 04:36 Toxic Granulation Not Reportable 06/30/18 04:36 Toxic Vacuolation Not Reportable 06/30/18 04:36 Dohle Bodies Not Reportable 06/30/18 04:36 Pelger-Huet Anomaly Not Reportable 06/30/18 04:36 Yohana Rods Not Reportable 06/30/18 04:36 Platelet Estimate Consistent w auto 06/30/18 04:36 Clumped Platelets Not Reportable 06/30/18 04:36 Plt Clumps, EDTA Not Reportable 06/30/18 04:36 Large Platelets 1+ 06/30/18 04:36 Giant Platelets Not Reportable 06/30/18 04:36 Platelet Satelliting Not Reportable 06/30/18 04:36 Plt Morphology Comment Not Reportable 06/30/18 04:36 RBC Morphology Not Reportable 06/30/18 04:36 Dimorphic RBCs Not Reportable 06/30/18 04:36 Polychromasia Not Reportable 06/30/18 04:36 Hypochromasia Not Reportable 06/30/18 04:36 Poikilocytosis 1+ 06/30/18 04:36 Anisocytosis 1+ 06/30/18 04:36 Microcytosis Not Reportable 06/30/18 04:36 Macrocytosis Not Reportable 06/30/18 04:36 Spherocytes Not Reportable 06/30/18 04:36 Pappenheimer Bodies Not Reportable 06/30/18 04:36 Sickle Cells Not Reportable 06/30/18 04:36 Target Cells Not Reportable 06/30/18 04:36 Tear Drop Cells Not Reportable 06/30/18 04:36 Ovalocytes Not Reportable 06/30/18 04:36 Helmet Cells Not Reportable 06/30/18 04:36 [place] Bodies Not Reportable 06/30/18 04:36 [place] Rings Not Reportable 06/30/18 04:36 [place] Cells Not Reportable 06/30/18 04:36 Bite Cells Not Reportable 06/30/18 04:36 Crenated Cell Not Reportable 06/30/18 04:36 Elliptocytes Not Reportable 06/30/18 04:36 Acanthocytes (Spur) Not Reportable 06/30/18 04:36 Rouleaux Not Reportable 06/30/18 04:36 Hemoglobin C Crystals Not Reportable 06/30/18 04:36 Schistocytes Not Reportable 06/30/18 04:36 Malaria parasites Not Reportable 06/30/18 04:36 ESR 68 mm/Hr (0-20) 06/28/18 14:28 Eric Bodies Not Reportable 06/30/18 04:36 Hem Pathologist Commnt No 06/30/18 04:36 Sodium 137 mmol/L (137-145) 07/01/18 04:37 Potassium 4.0 mmol/L (3.6-5.0) 07/01/18 04:37 Chloride 98.7 mmol/L (98-107) 07/01/18 04:37 Carbon Dioxide 22 mmol/L (22-30) 07/01/18 04:37 Anion Gap 20 mmol/L 07/01/18 04:37 BUN 29 mg/dL (7-17) H 07/01/18 04:37 Creatinine 4.0 mg/dL (0.7-1.2) H 07/01/18 04:37 Estimated GFR 11 ml/min 07/01/18 04:37 BUN/Creatinine Ratio 7 % 07/01/18 04:37 Glucose 104 mg/dL (65-100) H 07/01/18 04:37 POC Glucose 72 (70-105) 07/01/18 11:33 Hemoglobin A1c 7.3 % (4-6) H 06/30/18 04:36 Calcium 8.7 mg/dL (8.4-10.2) 07/01/18 04:37 Phosphorus 5.40 mg/dL (2.5-4.5) H 06/30/18 04:36 Total Bilirubin 0.40 mg/dL (0.1-1.2) 06/28/18 12:33 AST 33 units/L (5-40) 06/28/18 12:33 ALT 31 units/L (7-56) 06/28/18 12:33 Alkaline Phosphatase 196 units/L (35-129) H 06/28/18 12:33 C-Reactive Protein 7.20 mg/dL (0.00-1.30) H 07/01/18 00:21 Total Protein 8.0 g/dL (6.3-8.2) 06/28/18 12:33 Albumin 3.3 g/dL (3.9-5) L 06/28/18 12:33 Albumin/Globulin Ratio 0.7 % 06/28/18 12:33 Prealbumin 0.094 g/L (0.200-0.400) L 06/30/18 04:36 Random Vancomycin 14.5 ug/mL (0-40.0) 06/29/18 16:45
--- NOTE | 2018-07-01 14:08 | Progress Note ---
Assessment and Plan 67 yo F with 1. necrotic diabetic foot wounds, bilateral 2. diabetes 3. PAD 4. tobacco dependence 5. ESRD on HD 6. protein calorie malnutrition - PAL of 0.094 Plan: 1. Diabetic, renal diet. Protein supplements. [place] [employer] consult 2. vascular following 3. HD today per nephro note 4. IV abx - will need 6 wks per ID notes 5. follow up final cultures from OR - prelim ecoccus and gram negative rods 6. prn pain control - pt on baseline chronic narcotics 7. strict glucose control, obtain HbA1C 8. smoking cessation 9. patient is a good candidate for HBOT as outpatient. Discussed with patient and she is agreeable. Will obtain baseline CXR. 10. daily wound care per activity manager orders May discharge patient when set up for IV abx. She will need to be set up to follow up in wound care clinic on discharge. Thank you, please call with questions. Subjective Date of service: 07/01/18 Narrative: Pt seen and examined. No complaints. Had bilateral lower extremity angiogram with intervention on right leg. Objective - General physical appearance Narrative Exam: Gen; AAOx3. NAD CV: s1, S2+ Resp; even and unlabored Ext; bilateral lower extremity dressings removed and packing removed from all 4 wounds. Wound bases dry with minimal slough. Some dried blood. No odor. No drainage. Packed with hydrogel gauze. - Labs 07/01/18 00:21 07/01/18 04:37 Diabetes panel 07/01/18 Range/Units 04:37 Sodium 137 (137-145) mmol/L Potassium 4.0 (3.6-5.0) mmol/L Chloride 98.7 (98-107) mmol/L Carbon Dioxide 22 (22-30) mmol/L BUN 29 H (7-17) mg/dL Creatinine 4.0 H (0.7-1.2) mg/dL Glucose 104 H (65-100) mg/dL Calcium 8.7 (8.4-10.2) mg/dL Calcium panel 07/01/18 Range/Units 04:37 Calcium 8.7 (8.4-10.2) mg/dL Pituitary panel 07/01/18 Range/Units 04:37 Sodium 137 (137-145) mmol/L Potassium 4.0 (3.6-5.0) mmol/L Chloride 98.7 (98-107) mmol/L Carbon Dioxide 22 (22-30) mmol/L BUN 29 H (7-17) mg/dL Creatinine 4.0 H (0.7-1.2) mg/dL Glucose 104 H (65-100) mg/dL Calcium 8.7 (8.4-10.2) mg/dL Adrenal panel 07/01/18 Range/Units 04:37 Sodium 137 (137-145) mmol/L Potassium 4.0 (3.6-5.0) mmol/L Chloride 98.7 (98-107) mmol/L Carbon Dioxide 22 (22-30) mmol/L BUN 29 H (7-17) mg/dL Creatinine 4.0 H (0.7-1.2) mg/dL Glucose 104 H (65-100) mg/dL Calcium 8.7 (8.4-10.2) mg/dL
[2018-07-01] MEDS: NEURONTIN PO SCH ×3 (16:00→21:09)
--- NOTE | 2018-07-01 16:06 | XRay Report ---
AP CHEST :07/01/18 CLINICAL: Smoker. COMPARISON:None. FINDINGS: Normal heart and pulmonary vasculature. The lungs are normally expanded and clear except for mild right basal subsegmental atelectasis versus scar. No pulmonary nodule or mass. No airspace disease or pleural effusion. Degenerative change in the spine. Normal soft tissues. IMPRESSION: Right basal subsegmental atelectasis versus scar and otherwise negative.
--- NOTE | 2018-07-01 17:26 | XRay Report ---
PROCEDURE: XR CHEST 1V AP TECHNIQUE: Chest portable HISTORY: Right arm PICC placement COMPARISONS: No prior studies are available for comparison at this time FINDINGS: Cardiac and mediastinal contours are unremarkable. No focal pulmonary infiltrate identified. No pleur al fluid collection seen. Pulmonary vasculature is unremarkable. Note is made of a vascular stent in the left upper arm. IMPRESSION: No acute cardiopulmonary findings.. This document is electronically signed by Sedrick Mendez MD., July 01 2018 05:23:53 PM ET
[2018-07-01] MEDS ORDERED: NACL 0.9 (PRIMING MACHINE ONLY DIALYSIS) MC ONE (20:49)
[2018-07-01] MEDS ORDERED: VANCOMYCIN 750 MG in NACL 0.9% 250ML 250 ML IV SCH (21:00)
[2018-07-01] MEDS: SODIUM CHLORIDE FLUSH SYRINGE 10 ML IV SCH ×2 (21:15→21:45)
[2018-07-01] MEDS: SINEquan PO SCH (21:32)
[2018-07-02] MEDS: FLAGYL 500 MG/100 ML 500 MG/100 ML BAG IV SCH ×3 (06:04→22:25)
[2018-07-02] MEDS: MS CONTIN ER PO SCH ×2 (06:07→18:55)
--- NOTE | 2018-07-02 06:42 | Progress Note ---
Assessment and Plan End Stage Renal Disease on hemodialysis: -S/p HD yesterday for UF and clearance, UF removed 1 liter -No acute indication for HD today -Assess need for HD on daily basis -Fluid restriction of 1 liter per day -Renally dose medications -Renal plan d/w Dr Lincoln Bilateral Diabetic Foot Infection: Cellulitis: -Wound care on board -Vascular surgery evaluated pt, s/p Angiogram, atherectomy of right proximal SFA with occlusion of proximal SFA, AT and peroneal runoff -General surgery evaluated pt, s/p excisional debridement of bilateral infected foot wounds. Diabetic Mellitus Type 2 on insulin: -On Insulin -As per primary team Chronic Pain: Narcotic Dependence: -On Narcotics -As per primary Subjective Date of service: 07/02/18 Principal diagnosis: ESRD Interval history: Pt seen in bed, states feels ok today, tolerated HD well yesterday. No family at bedside Objective - Vital Signs Vital signs: Vital Signs - 12hr 07/01/18 07/01/18 07/01/18 18:45 19:00 19:15 Temperature Pulse Rate 100 H 100 H 94 H Respiratory Rate Blood Pressure 177/94 102/96 102/80 Blood Pressure [Right] O2 Sat by Pulse Oximetry 07/01/18 07/01/18 07/01/18 19:30 19:45 20:00 Temperature 97.5 F L Pulse Rate 90 94 H 90 Respiratory 20 Rate Blood Pressure 100/80 104/53 112/35 Blood Pressure 113/58 [Right] O2 Sat by Pulse 90 Oximetry 07/01/18 07/01/18 07/01/18 20:15 20:30 20:45 Temperature 98.0 F Pulse Rate 81 86 84 Respiratory 18 Rate Blood Pressure 125/38 121/48 126/56 Blood Pressure [Right] O2 Sat by Pulse Oximetry 07/01/18 07/01/18 07/02/18 20:57 22:00 02:02 Temperature 97.9 F 97.4 F L Pulse Rate 95 H Respiratory 20 20 Rate Blood Pressure 114/57 99/44 Blood Pressure [Right] O2 Sat by Pulse 98 93 Oximetry - General Appearance General appearance: well-developed EENT: ATNC Neck: no JVD Respiratory: Present: Decreased Breath Sounds Cardiology: regular, S1S2, other (ACCESS: Left AVF + thrill and bruit ) Gastrointestinal: normoactive bowel sounds, no tenderness Integumentary: other (bilateral foot wounds with dressing in place) Neurologic: alert and oriented x3 Musculoskeletal: other (trace edema to BLE) Psychiatric: mood/affect appropriate, cooperative - Lab 07/01/18 00:21 07/01/18 04:37 Most recent lab results Calcium 8.7 mg/dL (8.4-10.2) 07/01/18 04:37 Phosphorus 5.40 mg/dL (2.5-4.5) H 06/30/18 04:36 Medications & Allergies - Medications Allergies/Adverse Reactions: Allergies No Known Allergies Allergy (Verified 06/28/18 12:11) Home Medications: Home Medications Medication Instructions Recorded Confirmed Last Taken Type Amiodarone [Cordarone 200 MG TAB] 200 mg PO QDAY 06/28/18 06/28/18 Unknown History AtorvaSTATin [Lipitor] 10 mg PO QHS 06/28/18 06/28/18 Unknown History Clopidogrel Bisulfate [Plavix] 75 mg PO QDAY 06/28/18 06/28/18 Unknown History Doxepin [SINEquan] 100 mg PO QHS 06/28/18 06/28/18 Unknown History Gabapentin [Neurontin] 100 mg PO TID 06/28/18 06/28/18 Unknown History Insulin Detemir [Levemir Flextouch] 8 units SUB-Q DAILY 06/28/18 06/28/18 Unk nown History Metoprolol Succinate [Toprol Xl] 25 mg PO DAILY 06/28/18 06/28/18 Unknown History Morphine Sulfate [Morphine Sulfate 60 mg PO Q12H 06/28/18 06/28/18 Unknown History ER] NIFEdipine [Nifedipine ER] 30 mg PO QDAY 06/28/18 06/28/18 Unknown History Oxycodone HCl [Roxicodone] 30 mg PO Q8H PRN 06/28/18 06/28/18 Unknown History Propafenone HCl 150 mg PO BID 06/28/18 06/28/18 Unknown History Sertraline [Zoloft] 100 mg PO QDAY 06/28/18 06/28/18 Unknown History Active Medications: Generic Name Dose Route Start Last Admin Trade Name Freq PRN Reason Stop Dose Admin Acetaminophen 650 mg 06/28/18 14:53 Tylenol PO Q4H PRN Pain MILD(1-3)/Fever >100.5/LIANG Albuterol 2.5 mg 06/28/18 14:53 Proventil IH Q4HRT PRN Shortness Of Breath Amiodarone HCl 200 mg 06/29/18 10:00 07/01/18 10:00 Cordarone PO Not Given QDAY JOSEF Aspirin 81 mg 07/01/18 12:00 07/01/18 12:00 Baby Aspirin PO Not Given QDAY JOSEF Atorvastatin Calcium 10 mg 06/28/18 22:00 07/01/18 21:31 Lipitor PO 10 mg QHS JOSEF Administration Clopidogrel Bisulfate 75 mg 06/29/18 10:00 07/01/18 10:00 Plavix PO Not Given QDAY JOSEF Doxepin HCl 100 mg 06/28/18 22:00 07/01/18 21:32 Sinequan PO 100 mg QHS JOSFE Administration Fentanyl 50 mcg 06/30/18 10:08 06/30/18 11:14 Sublimaze IV 50 mcg Q5MIN PRN Administration Pain , Severe (7-10) Gabapentin 100 mg 06/28/18 20:00 07/01/18 21:09 Neurontin PO 100 mg TID JOSEF Administration Sodium Chloride 1,000 mls @ 42 mls/hr 06/30/18 11:00 06/30/18 10:51 Nacl 0.9% 1000 Ml IV 42 mls/hr DIRECT JOSEF Administration Metronidazole 500 mg in 100 mls @ 100 mls/hr 06/30/18 14:00 07/02/18 06:04 Flagyl 500 Mg/100 Ml IV 100 mls/hr Q8HR JOSEF Administration Protocol Cefepime HCl 1 gm in 100 mls @ 200 mls/hr 07/01/18 13:00 07/01/18 13:00 Maxipime/Ns 1 Gm/100 Ml IV Not Given Q24HR [facility] Protocol Vancomycin HCl 750 mg/ Sodium 265 mls @ 166.667 mls/hr 07/01/18 21:00 07/01/18 23:16 Chloride IV Infused [id number] [facility] Infusion Insulin Glargine 8 units 06/29/18 10:00 07/01/18 10:00 Lantus SUB-Q Not Given QDAY [facility] Metoprolol Succinate 25 mg 06/29/18 10:00 07/01/18 10:00 Toprol Xl PO Not Given DAILY JOSEF Morphine Sulfate 60 mg 07/01/18 07:00 07/02/18 06:07 Ms Contin Er PO 60 mg Q12H JOSEF Administration Ondansetron HCl 4 mg 06/30/18 10:08 Zofran IV ONCE PRN Nausea And Vomiting Oxycodone HCl 30 mg 06/28/18 17:33 06/30/18 18:39 Roxicodone PO 30 mg Q8H PRN Administration Pain, Moderate (4-6) Propafenone HCl 150 mg 06/28/18 22:00 07/01/18 21:31 Rythmol PO 150 mg BID JOSEF Administration Sertraline HCl 100 mg 06/29/18 10:00 07/01/18 10:00 Zoloft PO Not Given QDAY JOSEF Sodium Chloride 10 ml 06/28/18 22:00 07/01/18 21:45 Sodium Chloride Flush Syringe 10 Ml IV Not Given BID JOSEF Sodium Chloride 10 ml 06/28/18 14:53 Sodium Chloride Flush Syringe 10 Ml IV PRN PRN LINE FLUSH
[2018-07-02] MEDS: NEURONTIN PO SCH ×3 (08:40→19:46)
[2018-07-02] MEDS: PLAVIX PO SCH (09:14)
[2018-07-02] MEDS: BABY ASPIRIN PO SCH (09:14)
[2018-07-02] MEDS: RYTHMOL PO SCH ×2 (09:15→22:31)
[2018-07-02] MEDS: ZOLOFT PO SCH (09:15)
[2018-07-02] MEDS: SODIUM CHLORIDE FLUSH SYRINGE 10 ML IV SCH ×2 (09:15→22:32)
[2018-07-02] MEDS: MAXIPIME/NS 1 GM/100 ML 1 GM/100 ML BAG IV SCH (09:15)
[2018-07-02] MEDS: LANTUS SUB-Q SCH (09:16)
[2018-07-02] MEDS: CORDARONE PO SCH (09:17)
[2018-07-02] MEDS: TOPROL XL PO SCH (09:22)
--- NOTE | 2018-07-02 11:00 | Progress Note ---
Assessment and Plan Assessment and plan: Patient is a 67 YO Female with ESRD on HD(M,W,F), Nicotine Dependence, DM, chronic pain syndrome on continued opioid medication and recently relocated to [place] from [place] present to ED for evaluation. Pt states that she has experienced redness, swelling, and purulent discharge from her heel wounds over the past week with worsening symptoms over the past 5 days. Pt was seen and evaluated by her PCP today and found to have diabetic foot ulcers. Pt instructed to seek further care at [facility] By the foot doctor. she denies any fever. Pt seen and evaluated in ED and found to have ESRD, and Bilateral foot c ellulitis. Bilateral Diabetic Foot Infection S/P SHARP Debridement in the OR Cellulitis Diabetic Mellitus with Hyperglycemia ESRD on HD Chronic.opiod. Dependance Plan Continue supportive care Wound care consulted -Vascular surgery evaluated pt, s/p Angiogram, atherectomy of right proximal SFA with occlusion of proximal SFA, AT and peroneal runoff -General surgery evaluated pt, s/p excisional debridement of bilateral infected foot wounds. Vascular note: Angiogram done - Noted to have occlusion of proximal SFA, AT, and peroneal runoff. S/P Angiogram, atherectomy of right proximal SFA Surgery input noted.s/p OR debridment done * Necrotic tissue overlying base of all 4 wounds. All 4 wounds debrided sharply to healthy tissue. R medial wound near great toe extends to bone. measurements (L x W x H) L distal: 1.5cm x1.5cm x0.3cm L heel: 3cm x 2.8cm x 0.6 cm R medial: 3 cm x3cm x 1cm R lateral: 3.5 cm x 2 cm x 0.7cm Continue accucheck and blood glucose control Possible ID consult for duration of Tx if osteomylitis- likely mixed neuropathic +/- arterial ulcers. The one on over right 1st metatarsal seems infected and MRI shows osteomyelitis. Agree with vascular evaluation/arterial dopplers,start cefepime, flagyl and vancomycin....Will probably require IV antibiotics for 6 weeks. PICC line placed Continue abx per ID Recommend pain management outpatient DVT/GI prophy Dispoistion: once home IV abx is arranged. Anticipate it will be wednesday. History Interval history: Patient is seen today for: Bilateral lower extremity cellulitis with ulceration Seen and examined at bedside; 24hour events reviewed; nursing staff ; no adverse overnight events reported to me; Denies any chest pain, nausea, vomiting, diarrhea No fever noted blood pressure controlled She uses a wheelchair to get around. No new complaints today. Hospitalist Physical - Physical exam Narrative exam: VITAL SIGNS: Reviewed. GENERAL: The patient appeared well nourished and normally developed. Vital signs as documented. HEAD: No signs of head trauma. EYES: Pupils are equal. Extraocular motions intact. EARS: Hearing grossly intact. MOUTH: Oropharynx is normal. NECK: No adenopathy, no JVD. CHEST: Chest with clear breath sounds bilaterally. No wheezes, rales, or rhonchi. CARDIAC: Regular rate and rhythm. S1 and S2, without murmurs, gallops, or rubs. VASCULAR: No Edema. Peripheral pulses normal and equal in all extremities. ABDOMEN: Soft, without detectable tenderness. No sign of distention. No rebound or guarding, and no masses palpated. Bowel Sounds normal. MUSCULOSKELETAL: Good range of motion of all major joints. Extremities without clubbing, cyanosis or edema. NEUROLOGIC EXAM: Alert and oriented x 3. No focal sensory or strength deficits. Speech normal. Follows commands. PSYCHIATRIC: Mood normal. SKIN: Bilateral feet ulceration, dressing in place, some drainage noted. - Constitutional Vitals: Temp Pulse Resp BP Pulse Ox 97.7 F 65 18 109/47 96 07/02/18 08:10 07/02/18 09:22 07/02/18 08:10 07/02/18 09:22 07/02/18 08:10 General appearance: Present: mild distress Results - Labs CBC & Chem 7: 07/01/18 00:21 07/01/18 04:37 Labs: Laboratory Last Values WBC 10.4 K/mm3 (4.5-11.0) 07/01/18 00:21 RBC 3.64 M/mm3 (3.65-5.03) L 07/01/18 00:21 Hgb 11.8 gm/dl (10.1-14.3) 07/01/18 00:21 Hct 35.2 % (30.3-42.9) 07/01/18 00:21 MCV 97 fl (79-97) 07/01/18 00:21 MCH 32 pg (28-32) 07/01/18 00:21 MCHC 34 % (30-34) 07/01/18 00:21 RDW 14.6 % (13.2-15.2) 07/01/18 00:21 Plt Count 399 K/mm3 (140-440) 07/01/18 00:21 Lymph % (Auto) 12.8 % (13.4-35.0) L 07/01/18 00:21 [place] % (Auto) 11.4 % (0.0-7.3) H 07/01/18 00:21 Eos % (Auto) 4.4 % (0.0-4.3) H 07/01/18 00:21 Baso % (Auto) 1.0 % (0.0-1.8) 07/01/18 00:21 Lymph # 1.3 K/mm3 (1.2-5.4) 07/01/18 00:21 [place] # 1.2 K/mm3 (0.0-0.8) H 07/01/18 00:21 Eos # 0.5 K/mm3 (0.0-0.4) H 07/01/18 00:21 Baso # 0.1 K/mm3 (0.0-0.1) 07/01/18 00:21 Add Manual Diff Complete 06/30/18 04:36 Total Counted 100 06/30/18 04:36 Seg Neutrophils % 70.4 % (40.0-70.0) H 07/01/18 00:21 Seg Neuts % (Manual) 63.0 % (40.0-70.0) 06/30/18 04:36 Band Neutrophils % 0 % 06/30/18 04:36 Lymphocytes % (Manual) 13.0 % (13.4-35.0) L 06/30/18 04:36 Reactive Lymphs % (Man) 0 % 06/30/18 04:36 Monocytes % (Manual) 17.0 % (0.0-7.3) H 06/30/18 04:36 Eosinophils % (Manual) 7.0 % (0.0-4.3) H 06/30/18 04:36 Basophils % (Manual) 0 % (0.0-1.8) 06/30/18 04:36 Metamyelocytes % 0 % 06/30/18 04:36 Myelocytes % 0 % 06/30/18 04:36 Promyelocytes % 0 % 06/30/18 04:36 Blast Cells % 0 % 06/30/18 04:36 Nucleated RBC % Not Reportable 06/30/18 04:36 Seg Neutrophils # 7.3 K/mm3 (1.8-7.7) 07/01/18 00:21 Seg Neutrophils # Man 5.8 K/mm3 (1.8-7.7) 06/30/18 04:36 Band Neutrophils # 0.0 K/mm3 06/30/18 04:36 Lymphocytes # (Manual) 1.2 K/mm3 (1.2-5.4) 06/30/18 04:36 Abs React Lymphs (Man) 0.0 K/mm3 06/30/18 04:36 Monocytes # (Manual) 1.6 K/mm3 (0.0-0.8) H 06/30/18 04:36 Eosinophils # (Manual) 0.6 K/mm3 (0.0-0.4) H 06/30/18 04:36 Basophils # (Manual) 0.0 K/mm3 (0.0-0.1) 06/30/18 04:36 Metamyelocytes # 0.0 K/mm3 06/30/18 04:36 Myelocytes # 0.0 K/mm3 06/30/18 04:36 Promyelocytes # 0.0 K/mm3 06/30/18 04:36 Blast Cells # 0.0 K/mm3 06/30/18 04:36 WBC Morphology Not Reportable 06/30/18 04:36 Hypersegmented Neuts Not Reportable 06/30/18 04:36 Hyposegmented Neuts Not Reportable 06/30/18 04:36 Hypogranular Neuts Not Reportable 06/30/18 04:36 Smudge Cells Not Reportable 06/30/18 04:36 Toxic Granulation Not Reportable 06/30/18 04:36 Toxic Vacuolation Not Reportable 06/30/18 04:36 Dohle Bodies Not Reportable 06/30/18 04:36 Pelger-Huet Anomaly Not Reportable 06/30/18 04:36 Yohana Rods Not Reportable 06/30/18 04:36 Platelet Estimate Consistent w auto 06/30/18 04:36 Clumped Platelets Not Reportable 06/30/18 04:36 Plt Clumps, EDTA Not Reportable 06/30/18 04:36 Large Platelets 1+ 06/30/18 04:36 Giant Platelets Not Reportable 06/30/18 04:36 Platelet Satelliting Not Reportable 06/30/18 04:36 Plt Morphology Comment Not Reportable 06/30/18 04:36 RBC Morphology Not Reportable 06/30/18 04:36 Dimorphic RBCs Not Reportable 06/30/18 04:36 Polychromasia Not Reportable 06/30/18 04:36 Hypochromasia Not Reportable 06/30/18 04:36 Poikilocytosis 1+ 06/30/18 04:36 Anisocytosis 1+ 06/30/18 04:36 Microcytosis Not Reportable 06/30/18 04:36 Macrocytosis Not Reportable 06/30/18 04:36 Spherocytes Not Reportable 06/30/18 04:36 Pappenheimer Bodies Not Reportable 06/30/18 04:36 Sickle Cells Not Reportable 06/30/18 04:36 Target Cells Not Reportable 06/30/18 04:36 Tear Drop Cells Not Reportable 06/30/18 04:36 Ovalocytes Not Reportable 06/30/18 04:36 Helmet Cells Not Reportable 06/30/18 04:36 [place] Bodies Not Reportable 06/30/18 04:36 [place] Rings Not Reportable 06/30/18 04:36 Onur Cells Not Reportable 06/30/18 04:36 Bite Cells Not Reportable 06/30/18 04:36 Crenated Cell Not Reportable 06/30/18 04:36 Elliptocytes Not Reportable 06/30/18 04:36 Acanthocytes (Spur) Not Reportable 06/30/18 04:36 Rouleaux Not Reportable 06/30/18 04:36 Hemoglobin C Crystals Not Reportable 06/30/18 04:36 Schistocytes Not Reportable 06/30/18 04:36 Malaria parasites Not Reportable 06/30/18 04:36 ESR 68 mm/Hr (0-20) 06/28/18 14:28 Eric Bodies Not Reportable 06/30/18 04:36 Hem Pathologist Commnt No 06/30/18 04:36 Sodium 137 mmol/L (137-145) 07/01/18 04:37 Potassium 4.0 mmol/L (3.6-5.0) 07/01/18 04:37 Chloride 98.7 mmol/L (98-107) 07/01/18 04:37 Carbon Dioxide 22 mmol/L (22-30) 07/01/18 04:37 Anion Gap 20 mmol/L 07/01/18 04:37 BUN 29 mg/dL (7-17) H 07/01/18 04:37 Creatinine 4.0 mg/dL (0.7-1.2) H 07/01/18 04:37 Estimated GFR 11 ml/min 07/01/18 04:37 BUN/Creatinine Ratio 7 % 07/01/18 04:37 Glucose 104 mg/dL (65-100) H 07/01/18 04:37 POC Glucose 213 (70-105) H 07/02/18 09:16 Hemoglobin A1c 7.3 % (4-6) H 06/30/18 04:36 Calcium 8.7 mg/dL (8.4-10.2) 07/01/18 04:37 Phosphorus 5.40 mg/dL (2.5-4.5) H 06/30/18 04:36 Total Bilirubin 0.40 mg/dL (0.1-1.2) 06/28/18 12:33 AST 33 units/L (5-40) 06/28/18 12:33 ALT 31 units/L (7-56) 06/28/18 12:33 Alkaline Phosphatase 196 units/L (35-129) H 06/28/18 12:33 C-Reactive Protein 7.20 mg/dL (0.00-1.30) H 07/01/18 00:21 Total Protein 8.0 g/dL (6.3-8.2) 06/28/18 12:33 Albumin 3.3 g/dL (3.9-5) L 06/28/18 12:33 Albumin/Globulin Ratio 0.7 % 06/28/18 12:33 Prealbumin 0.094 g/L (0.200-0.400) L 06/30/18 04:36 Random Vancomycin 14.5 ug/mL (0-40.0) 06/29/18 16:45
[2018-07-02] MEDS: SINEquan PO SCH (22:31)
[2018-07-03] MEDS: FLAGYL 500 MG/100 ML 500 MG/100 ML BAG IV SCH ×3 (06:20→21:18)
[2018-07-03] MEDS: MS CONTIN ER PO SCH ×2 (07:00→19:47)
[2018-07-03] MEDS: NEURONTIN PO SCH ×3 (08:31→19:47)
[2018-07-03] MEDS: PLAVIX PO SCH (09:31)
[2018-07-03] MEDS: BABY ASPIRIN PO SCH (09:31)
[2018-07-03] MEDS: ZOLOFT PO SCH (09:31)
[2018-07-03] MEDS: TOPROL XL PO SCH (09:31)
[2018-07-03] MEDS: CORDARONE PO SCH (09:31)
[2018-07-03] MEDS: RYTHMOL PO SCH ×2 (09:32→21:24)
[2018-07-03] MEDS: MAXIPIME/NS 1 GM/100 ML 1 GM/100 ML BAG IV SCH (09:32)
[2018-07-03] MEDS: SODIUM CHLORIDE FLUSH SYRINGE 10 ML IV SCH ×2 (09:36→21:24)
[2018-07-03] MEDS: LANTUS SUB-Q SCH (10:45)
--- NOTE | 2018-07-03 11:57 | Progress Note ---
Assessment and Plan Assessment and plan: Patient is a 67 YO Female with ESRD on HD(M,W,F), Nicotine Dependence, DM, chronic pain syndrome on continued opioid medication and recently relocated to [place] from [place] present to ED for evaluation. Pt states that she has experienced redness, swelling, and purulent discharge from her heel wounds over the past week with worsening symptoms over the past 5 days. Pt was seen and evaluated by her PCP today and found to have diabetic foot ulcers. Pt instructed to seek further care at [facility] By the foot doctor. she denies any fever. Pt seen and evaluated in ED and found to have ESRD, and Bilateral foot c ellulitis. Bilateral Diabetic Foot Infection S/P SHARP Debridement in the OR Cellulitis Diabetic Mellitus with Hyperglycemia ESRD on HD Chronic.opiod. Dependance Plan Continue supportive care Wound care consulted -Vascular surgery evaluated pt, s/p Angiogram, atherectomy of right proximal SFA with occlusion of proximal SFA, AT and peroneal runoff -General surgery evaluated pt, s/p excisional debridement of bilateral infected foot wounds. Vascular note: Angiogram done - Noted to have occlusion of proximal SFA, AT, and peroneal runoff. S/P Angiogram, atherectomy of right proximal SFA Surgery input noted.s/p OR debridment done * Necrotic tissue overlying base of all 4 wounds. All 4 wounds debrided sharply to healthy tissue. R medial wound near great toe extends to bone. measurements (L x W x H) L distal: 1.5cm x1.5cm x0.3cm L heel: 3cm x 2.8cm x 0.6 cm R medial: 3 cm x3cm x 1cm R lateral: 3.5 cm x 2 cm x 0.7cm Continue accucheck and blood glucose control Possible ID consult for duration of Tx if osteomylitis- likely mixed neuropathic +/- arterial ulcers. The one on over right 1st metatarsal seems infected and MRI shows osteomyelitis. Agree with vascular evaluation/arterial dopplers,start cefepime, flagyl and vancomycin....Will probably require IV antibiotics for 6 weeks. PICC line placed Continue abx per ID Recommend pain management outpatient DVT/GI prophy Dispoistion: once home IV abx is arranged. Anticipate it will be wednesday. History Interval history: Patient is seen today for: Bilateral lower extremity cellulitis with ulceration Seen and examined at bedside; 24hour events reviewed; nursing staff ; no adverse overnight events reported to me; Denies any chest pain, nausea, vomiting, diarrhea No fever noted blood pressure controlled She uses a wheelchair to get around. No new complaints today. Hospitalist Physical - Physical exam Narrative exam: VITAL SIGNS: Reviewed. GENERAL: The patient appeared well nourished and normally developed. Vital signs as documented. HEAD: No signs of head trauma. EYES: Pupils are equal. Extraocular motions intact. EARS: Hearing grossly intact. MOUTH: Oropharynx is normal. NECK: No adenopathy, no JVD. CHEST: Chest with clear breath sounds bilaterally. No wheezes, rales, or rhonchi. CARDIAC: Regular rate and rhythm. S1 and S2, without murmurs, gallops, or rubs. VASCULAR: No Edema. Peripheral pulses normal and equal in all extremities. ABDOMEN: Soft, without detectable tenderness. No sign of distention. No rebound or guarding, and no masses palpated. Bowel Sounds normal. MUSCULOSKELETAL: Good range of motion of all major joints. Extremities without clubbing, cyanosis or edema. NEUROLOGIC EXAM: Alert and oriented x 3. No focal sensory or strength deficits. Speech normal. Follows commands. PSYCHIATRIC: Mood normal. SKIN: Bilateral feet ulceration, dressing in place, No drainage noted. - Constitutional Vitals: Temp Pulse Resp BP Pulse Ox 97.7 F 93 H 18 121/79 92 07/03/18 07:38 07/03/18 10:00 07/03/18 10:00 07/03/18 09:31 07/03/18 10:00 General appearance: Present: mild distress Results - Labs CBC & Chem 7: 07/01/18 00:21 07/01/18 04:37 Labs: Laboratory Last Values WBC 10.4 K/mm3 (4.5-11.0) 07/01/18 00:21 RBC 3.64 M/mm3 (3.65-5.03) L 07/01/18 00:21 Hgb 11.8 gm/dl (10.1-14.3) 07/01/18 00:21 Hct 35.2 % (30.3-42.9) 07/01/18 00:21 MCV 97 fl (79-97) 07/01/18 00:21 MCH 32 pg (28-32) 07/01/18 00:21 MCHC 34 % (30-34) 07/01/18 00:21 RDW 14.6 % (13.2-15.2) 07/01/18 00:21 Plt Count 399 K/mm3 (140-440) 07/01/18 00:21 Lymph % (Auto) 12.8 % (13.4-35.0) L 07/01/18 00:21 [place] % (Auto) 11.4 % (0.0-7.3) H 07/01/18 00:21 Eos % (Auto) 4.4 % (0.0-4.3) H 07/01/18 00:21 Baso % (Auto) 1.0 % (0.0-1.8) 07/01/18 00:21 Lymph # 1.3 K/mm3 (1.2-5.4) 07/01/18 00:21 [place] # 1.2 K/mm3 (0.0-0.8) H 07/01/18 00:21 Eos # 0.5 K/mm3 (0.0-0.4) H 07/01/18 00:21 Baso # 0.1 K/mm3 (0.0-0.1) 07/01/18 00:21 Add Manual Diff Complete 06/30/18 04:36 Total Counted 100 06/30/18 04:36 Seg Neutrophils % 70.4 % (40.0-70.0) H 07/01/18 00:21 Seg Neuts % (Manual) 63.0 % (40.0-70.0) 06/30/18 04:36 Band Neutrophils % 0 % 06/30/18 04:36 Lymphocytes % (Manual) 13.0 % (13.4-35.0) L 06/30/18 04:36 Reactive Lymphs % (Man) 0 % 06/30/18 04:36 Monocytes % (Manual) 17.0 % (0.0-7.3) H 06/30/18 04:36 Eosinophils % (Manual) 7.0 % (0.0-4.3) H 06/30/18 04:36 Basophils % (Manual) 0 % (0.0-1.8) 06/30/18 04:36 Metamyelocytes % 0 % 06/30/18 04:36 Myelocytes % 0 % 06/30/18 04:36 Promyelocytes % 0 % 06/30/18 04:36 Blast Cells % 0 % 06/30/18 04:36 Nucleated RBC % Not Reportable 06/30/18 04:36 Seg Neutrophils # 7.3 K/mm3 (1.8-7.7) 07/01/18 00:21 Seg Neutrophils # Man 5.8 K/mm3 (1.8-7.7) 06/30/18 04:36 Band Neutrophils # 0.0 K/mm3 06/30/18 04:36 Lymphocytes # (Manual) 1.2 K/mm3 (1.2-5.4) 06/30/18 04:36 Abs React Lymphs (Man) 0.0 K/mm3 06/30/18 04:36 Monocytes # (Manual) 1.6 K/mm3 (0.0-0.8) H 06/30/18 04:36 Eosinophils # (Manual) 0.6 K/mm3 (0.0-0.4) H 06/30/18 04:36 Basophils # (Manual) 0.0 K/mm3 (0.0-0.1) 06/30/18 04:36 Metamyelocytes # 0.0 K/mm3 06/30/18 04:36 Myelocytes # 0.0 K/mm3 06/30/18 04:36 Promyelocytes # 0.0 K/mm3 06/30/18 04:36 Blast Cells # 0.0 K/mm3 06/30/18 04:36 WBC Morphology Not Reportable 06/30/18 04:36 Hypersegmented Neuts Not Reportable 06/30/18 04:36 Hyposegmented Neuts Not Reportable 06/30/18 04:36 Hypogranular Neuts Not Reportable 06/30/18 04:36 Smudge Cells Not Reportable 06/30/18 04:36 Toxic Granulation Not Reportable 06/30/18 04:36 Toxic Vacuolation Not Reportable 06/30/18 04:36 Dohle Bodies Not Reportable 06/30/18 04:36 Pelger-Huet Anomaly Not Reportable 06/30/18 04:36 Yohana Rods Not Reportable 06/30/18 04:36 Platelet Estimate Consistent w auto 06/30/18 04:36 Clumped Platelets Not Reportable 06/30/18 04:36 Plt Clumps, EDTA Not Reportable 06/30/18 04:36 Large Platelets 1+ 06/30/18 04:36 Giant Platelets Not Reportable 06/30/18 04:36 Platelet Satelliting Not Reportable 06/30/18 04:36 Plt Morphology Comment Not Reportable 06/30/18 04:36 RBC Morphology Not Reportable 06/30/18 04:36 Dimorphic RBCs Not Reportable 06/30/18 04:36 Polychromasia Not Reportable 06/30/18 04:36 Hypochromasia Not Reportable 06/30/18 04:36 Poikilocytosis 1+ 06/30/18 04:36 Anisocytosis 1+ 06/30/18 04:36 Microcytosis Not Reportable 06/30/18 04:36 Macrocytosis Not Reportable 06/30/18 04:36 Spherocytes Not Reportable 06/30/18 04:36 Pappenheimer Bodies Not Reportable 06/30/18 04:36 Sickle Cells Not Reportable 06/30/18 04:36 Target Cells Not Reportable 06/30/18 04:36 Tear Drop Cells Not Reportable 06/30/18 04:36 Ovalocytes Not Reportable 06/30/18 04:36 Helmet Cells Not Reportable 06/30/18 04:36 [place] Bodies Not Reportable 06/30/18 04:36 [place] Rings Not Reportable 06/30/18 04:36 Onur Cells Not Reportable 06/30/18 04:36 Bite Cells Not Reportable 06/30/18 04:36 Crenated Cell Not Reportable 06/30/18 04:36 Elliptocytes Not Reportable 06/30/18 04:36 Acanthocytes (Spur) Not Reportable 06/30/18 04:36 Rouleaux Not Reportable 06/30/18 04:36 Hemoglobin C Crystals Not Reportable 06/30/18 04:36 Schistocytes Not Reportable 06/30/18 04:36 Malaria parasites Not Reportable 06/30/18 04:36 ESR 68 mm/Hr (0-20) 06/28/18 14:28 Eric Bodies Not Reportable 06/30/18 04:36 Hem Pathologist Commnt No 06/30/18 04:36 Sodium 137 mmol/L (137-145) 07/01/18 04:37 Potassium 4.0 mmol/L (3.6-5.0) 07/01/18 04:37 Chloride 98.7 mmol/L (98-107) 07/01/18 04:37 Carbon Dioxide 22 mmol/L (22-30) 07/01/18 04:37 Anion Gap 20 mmol/L 07/01/18 04:37 BUN 29 mg/dL (7-17) H 07/01/18 04:37 Creatinine 4.0 mg/dL (0.7-1.2) H 07/01/18 04:37 Estimated GFR 11 ml/min 07/01/18 04:37 BUN/Creatinine Ratio 7 % 07/01/18 04:37 Glucose 104 mg/dL (65-100) H 07/01/18 04:37 POC Glucose 160 (70-105) H 07/03/18 11:40 Hemoglobin A1c 7.3 % (4-6) H 06/30/18 04:36 Calcium 8.7 mg/dL (8.4-10.2) 07/01/18 04:37 Phosphorus 5.40 mg/dL (2.5-4.5) H 06/30/18 04:36 Total Bilirubin 0.40 mg/dL (0.1-1.2) 06/28/18 12:33 AST 33 units/L (5-40) 06/28/18 12:33 ALT 31 units/L (7-56) 06/28/18 12:33 Alkaline Phosphatase 196 units/L (35-129) H 06/28/18 12:33 C-Reactive Protein 7.20 mg/dL (0.00-1.30) H 07/01/18 00:21 Total Protein 8.0 g/dL (6.3-8.2) 06/28/18 12:33 Albumin 3.3 g/dL (3.9-5) L 06/28/18 12:33 Albumin/Globulin Ratio 0.7 % 06/28/18 12:33 Prealbumin 0.094 g/L (0.200-0.400) L 06/30/18 04:36 Random Vancomycin 14.5 ug/mL (0-40.0) 06/29/18 16:45
[2018-07-03] MEDS: ROXICODONE PO PRN (13:43)
--- NOTE | 2018-07-03 16:29 | Progress Note ---
Assessment and Plan End Stage Renal Disease on hemodialysis: -No acute indication for HD today -HD tomorrow for UF and clearance, goal UF 2-3 liters as tolerated -Assess need for HD on daily basis -Fluid restriction of 1 liter per day -Renally dose medications -Renal plan d/w Dr Lincoln Bilateral Diabetic Foot Infection: Cellulitis: -Wound care on board -Vascular surgery evaluated pt, s/p Angiogram, atherectomy of right proximal SFA with occlusion of proximal SFA, AT and peroneal runoff -General surgery evaluated pt, s/p excisional debridement of bilateral infected foot wounds. Diabetic Mellitus Type 2 on insulin: -On Insulin -As per primary team Chronic Pain: Narcotic Dependence: -On Narcotics -As per primary Subjective Date of service: 07/03/18 Principal diagnosis: ESRD Interval history: Pt seen sitting in her wheelchair, denies shortness of breath, no acute distress. No family at bedside Objective - Vital Signs Vital signs: Vital Signs - 12hr 07/03/18 07/03/18 07/03/18 07:38 09:21 09:30 Temperature 97.7 F Pulse Rate 93 H Pulse Rate [ From Monitor] Respiratory 18 Rate Blood Pressure 104/44 121/79 O2 Sat by Pulse 92 92 Oximetry 07/03/18 07/03/18 07/03/18 09:31 10:00 13:15 Temperature 99.1 F Pulse Rate 108 H 87 Pulse Rate [ 93 H From Monitor] Respiratory 18 18 Rate Blood Pressure 121/79 111/67 O2 Sat by Pulse 92 98 Oximetry - General Appearance General appearance: well-developed EENT: ATNC Neck: no JVD Respiratory: Present: Decreased Breath Sounds Cardiology: regular, S1S2, other (ACCESS: Left AVF + thrill and bruit noted) Gastrointestinal: normoactive bowel sounds, no tenderness Integumentary: other (Bilateral foot wounds with dressings in place) Neurologic: alert and oriented x3 Musculoskeletal: other (1-2+ edema to BLE) Psychiatric: mood/affect appropriate, cooperative - Lab 07/01/18 00:21 07/01/18 04:37 Most recent lab results Calcium 8.7 mg/dL (8.4-10.2) 07/01/18 04:37 Phosphorus 5.40 mg/dL (2.5-4.5) H 06/30/18 04:36 Medications & Allergies - Medications Allergies/Adverse Reactions: Allergies No Known Allergies Allergy (Verified 06/28/18 12:11) Home Medications: Home Medications Medication Instructions Recorded Confirmed Last Taken Type Amiodarone [Cordarone 200 MG TAB] 200 mg PO QDAY 06/28/18 06/28/18 Unknown History AtorvaSTATin [Lipitor] 10 mg PO QHS 06/28/18 06/28/18 Unknown History Clopidogrel Bisulfate [Plavix] 75 mg PO QDAY 06/28/18 06/28/18 Unknown History Doxepin [SINEquan] 100 mg PO QHS 06/28/18 06/28/18 Unknown History Gabapentin [Neurontin] 100 mg PO TID 06/28/18 06/28/18 Unknown History Insulin Detemir [Levemir Flextouch] 8 units SUB-Q DAILY 06/28/18 06/28/18 Unknown History Metoprolol Succinate [Toprol Xl] 25 mg PO DAILY 06/28/18 06/28/18 Unknown History Morphine Sulfate [Morphine Sulfate 60 mg PO Q12H 06/28/18 06/28/18 Unknown History ER] NIFEdipine [Nifedipine ER] 30 mg PO QDAY 06/28/18 06/28/18 Unknown History Oxycodone HCl [Roxicodone] 30 mg PO Q8H PRN 06/28/18 06/28/18 Unknown History Propafenone HCl 150 mg PO BID 06/28/18 06/28/18 Unknown History Sertraline [Zoloft] 100 mg PO QDAY 06/28/18 06/28/18 Unknown History Active Medications: Generic Name Dose Route Start Last Admin Trade Name Georgeq PRN Reason Stop Dose Admin Acetaminophen 650 mg 06/28/18 14:53 Tylenol PO Q4H PRN Pain MILD(1-3)/Fever >100.5/LIANG Albuterol 2.5 mg 06/28/18 14:53 Proventil IH Q4HRT PRN Shortness Of Breath Amiodarone HCl 200 mg 06/29/18 10:00 07/03/18 09:31 Cordarone PO 200 mg QDAY JOSEF Administration Aspirin 81 mg 07/01/18 12:00 07/03/18 09:31 Baby Aspirin PO 81 mg QDAY JOSEF Administration Atorvastatin Calcium 10 mg 06/28/18 22:00 07/02/18 22:31 Lipitor PO 10 mg QHS JOSEF Administration Clopidogrel Bisulfate 75 mg 06/29/18 10:00 07/03/18 09:31 Plavix PO 75 mg QDAY JOSEF Administration Doxepin HCl 100 mg 06/28/18 22:00 07/02/18 22:31 Sinequan PO 100 mg QHS JOSEF Administration Fentanyl 50 mcg 06/30/18 10:08 06/30/18 11:14 Sublimaze IV 50 mcg Q5MIN PRN Administration Pain , Severe (7-10) Gabapentin 100 mg 06/28/18 20:00 07/03/18 13:43 Neurontin PO 100 mg TID JOSEF Administration Sodium Chloride 1,000 mls @ 42 mls/hr 06/30/18 11:00 06/30/18 10:51 Nacl 0.9% 1000 Ml IV 42 mls/hr DIRECT JOSEF Administration Metronidazole 500 mg in 100 mls @ 100 mls/hr 06/30/18 14:00 07/03/18 13:43 Flagyl 500 Mg/100 Ml IV 100 mls/hr Q8HR [facility] Administration Protocol Cefepime HCl 1 gm in 100 mls @ 200 mls/hr 07/01/18 13:00 07/03/18 09:32 Maxipime/Ns 1 Gm/100 Ml IV 200 mls/hr Q24HR [facility] Administration Protocol Vancomycin HCl 750 mg/ Sodium 265 mls @ 166.667 mls/hr 07/01/18 21:00 07/01/18 23:16 Chloride IV Infused [id number] JOSEF Infusion Insulin Glargine 8 units 06/29/18 10:00 07/03/18 10:45 Lantus SUB-Q 8 units QDAY [facility] Administration Metoprolol Succinate 25 mg 06/29/18 10:00 07/03/18 09:31 Toprol Xl PO 25 mg DAILY [facility] Administration Morphine Sulfate 60 mg 07/01/18 07:00 07/03/18 07:00 Ms Contin Er PO Not Given Q12H [facility] Oxycodone HCl 30 mg 06/28/18 17:33 07/03/18 13:43 Roxicodone PO 30 mg Q8H PRN Administration Pain, Moderate (4-6) Propafenone HCl 150 mg 06/28/18 22:00 07/03/18 09:32 Rythmol PO 150 mg BID JOSEF Administration Sertraline HCl 100 mg 06/29/18 10:00 07/03/18 09:31 Zoloft PO 100 mg QDAY [facility] Administration Sodium Chloride 10 ml 06/28/18 22:00 07/03/18 09:36 Sodium Chloride Flush Syringe 10 Ml IV 10 ml BID JOSEF Administration Sodium Chloride 10 ml 06/28/18 14:53 Sodium Chloride Flush Syringe 10 Ml IV PRN PRN LINE FLUSH
[2018-07-03] MEDS ORDERED: NACL 0.9% 100 ML IV PRN (16:40)
[2018-07-03 17:43] LABS: Hematocrit 31.9 % (30.3-42.9); Hemoglobin 10.8 gm/dl (10.1-14.3); Mean Corpuscular HGB Conc 34 % (30-34); Mean Corpuscular Volume 97 fl (79-97); Platelet Count 373 K/mm3 (140-440); Red Cell Distribution Width 14.4 % (13.2-15.2)
[2018-07-03] MEDS: SINEquan PO SCH (21:23)
[2018-07-04] MEDS: FLAGYL 500 MG/100 ML 500 MG/100 ML BAG IV SCH ×2 (05:10→16:41)
[2018-07-04 06:22] LABS: Hematocrit 30.6 % (30.3-42.9); Hemoglobin 10.3 gm/dl (10.1-14.3); Mean Corpuscular HGB Conc 34 % (30-34); Mean Corpuscular Volume 96 fl (79-97); Platelet Count 369 K/mm3 (140-440); Red Cell Distribution Width 14.7 % (13.2-15.2)
[2018-07-04 06:45] LABS: Calcium 8.5 mg/dL (8.4-10.2)
[2018-07-04] MEDS: MS CONTIN ER PO SCH (08:29)
[2018-07-04] MEDS: NEURONTIN PO SCH ×2 (08:29→16:41)
--- NOTE | 2018-07-04 08:50 | Progress Note ---
Assessment and Plan Cultures: 06/30/2018Surgical Culture: mixed, culture, GNR, Enterococcus species A/P: 67-year-old female with a past medical history of diabetes and end-stage renal disease on dialysis. She moved to [place] 2 weeks ago from [place]. complaining of infection to bilateral foot ulcers to the right and left heel She reports having multiple RLE angiograms in the past and revascularzation. She also has had multiple debridements of the foot wounds. .She was seen by [facility] orthopedics and sports specialists this morning and told to come to [facility] for infection management. In the ED she complains of pain and drainage. Admitted with: 1.Bilateral diabetic v/s arterial foot ulcerations: non-healing wounds to both feet. Per wound care, right bunion necrotic foot ulcer, right lateral foot escar. Left medial heel diabetic foot ulcer, left bunion with dry escar. Right lower extremity MRI reveals osteomylitis involving the 5th distal and 1st distal metatarsal, no abscess observed. Left lower extremity MRI shows soft tissue ulcer of the medial hindfoot with intact extending bone, no evidence of osteomylitis or abscess. Duplex scan of lower extremity artery pending. S/P debridement today, All 4 wounds debrided sharply to healthy tissue. R medial wound near great toe extends to bone. CRP 7.20 2. Type 2 Diabetes: uncontrolled. Hemoglobin A1C 7.3. Recommend tight glycemic control.. 3. ESRD on dialysis: on HD M,W,F. Antibiotics renally dosed. 4. Severe Bilateral Peripheral Arterial Disease. multiple revascularzations in the past., Non-invasive arterial duplex exams with ABIs of the lower extremities reveal complete occlusion of the bilateral posterior tibial and left anterior tibial arteries. Focal stenosis of the proximal right superficial femoral artery. S/p Angiogram 07/01/18- Vascular following 5. Tobacco Abuse: 15-10 year tobacco abuse history. States she recently stopped smoking 2 weeks ago. Plan: Continue Vancomycin PK dosing, D4 Continue Cefepime 1 gm every 24 h D4 Continue Flagyl 500mg IV every 8 hours, D4 Anticipate discharge on Ceftazidime post HD, 2gms IV Mon, 2gms IV Wednesday and 3 gms IV Wednesday and Vancomycin 750mg IV post HD for 6 weeks ending 08-12-18 Consult placed with case management F/u with ID office 07-19-18 outpatient wound care [facility] M: [phone] O:[phone] Subjective Date of service: 07/04/18 Principal diagnosis: ESRD Interval history: Patient seen and examined. Awake alert, denied generalized pain, SOB. No fevers. Discussed OPAT and importance of follow-up with wound care and ID office appointment. Verbalized understanding. Objective - Exam Narrative Exam: Constitutional: Awake, alert. No acute distress Head, Ears, Nose: Normocephalic, atraumatic. External ears, nose normal Eyes: Conjunctivae/corneas clear. No icterus. No ptosis. Neck: Supple, no meningeal signs Oral: Endentulous , no thrush Cardiovascular: S1, S2 normal. Respiratory: Good air entry, clear to auscultation bilaterally GI: Soft, non-tender; bowel sounds normal. No peritoneal signs Musculoskeletal:right bunion necrotic, diabetic foot ulcer, Right lateral foot Escar, + dressing, Left medial heel diabetic foot ulcer, left bunion with dry escar, +dressing Skin: No rash or abscess. Hem/Lymphatic: No palpable cervical or supraclavicular nodes. No lymphangitis Psych: Mood ok. Affect normal Neurological: Awake, alert, oriented. - Constitutional Vitals: Vital Signs Temp Pulse Resp BP Pulse Ox 98.6 F 63 20 128/59 98 07/04/18 07:21 07/04/18 07:21 07/04/18 08:29 07/04/18 07:21 07/04/18 07:21 Temperature -Last 24 Hours Temperature 98.6 F Temperature 98.3 F Temperature 98.7 F Temperature 99.1 F - Labs CBC & Chem 7: 07/04/18 06:05 07/04/18 06:05 Labs: Abnormal lab results 07/03/18 07/03/18 07/03/18 Range/Units 10:43 11:40 16:33 RBC (3.65-5.03) M/mm3 MCH (28-32) pg BUN (7-17) mg/dL Creatinine (0.7-1.2) mg/dL Glucose (65-100) mg/dL POC Glucose 159 H 160 H 128 H (70-105) 07/03/18 07/03/18 07/03/18 Range/Units 17:09 17:09 21:34 RBC 3.30 L (3.65-5.03) M/mm3 MCH 33 H (28-32) pg BUN 29 H (7-17) mg/dL Creatinine 4.3 H (0.7-1.2) mg/dL Glucose 111 H (65-100) mg/dL POC Glucose 184 H (70-105) 07/04/18 07/04/18 Range/Units 06:05 06:05 RBC 3.20 L (3.65-5.03) M/mm3 MCH (28-32) pg BUN 32 H (7-17) mg/dL Creatinine 4.4 H (0.7-1.2) mg/dL Glucose (65-100) mg/dL POC Glucose (70-105)
--- NOTE | 2018-07-04 09:15 | Discharge Summary ---
Providers - Providers Date of Admission: 06/28/18 14:53 Attending physician: NOHEMI RESENDEZ MD 06/28/18 14:56 Consult to Wound/ET Nurse [CONS] Routine Reason For Exam: wound eval 06/28/18 16:49 Consult to Physician [CONS] Routine Comment: Consulting Provider: PRADEEP JULIEN Physician Instructions: Reason For Exam: esrd 06/29/18 11:20 Consult to Physician [CONS] Routine Comment: called office/[place] Consulting Provider: TIM YANG Physician Instructions: Reason For Exam: bilateral foot ulcer 06/29/18 11:21 Consult to Physician [CONS] Routine Comment: spoke to phani/ [place] Consulting Provider: MARIANNA BROOKS Physician Instructions: Reason For Exam: poor wound healing in a diabetic patient 06/29/18 11:50 Physical Therapy Evaluation and Treat [CONS] Routine Comment: Reason For Exam: skilled or unskilled needs 06/29/18 12:27 Consult to Physician [CONS] Urgent Comment: Consulting Provider: TIM YANG Physician Instructions: Reason For Exam: POSSIBLE DEBRIDEMENT 06/29/18 14:47 Consult to Physician [CONS] Routine Comment: ofeliakr to [employer]/[place] Consulting Provider: GINO SUTHERLAND Physician Instructions: Reason For Exam: osteomylitis 07/01/18 13:39 Consult to PICC Line RN [CONS] Routine Reason For Exam: 6 WEEK IV ABX Type Line:: PICC [facility] Reason for admission: bilateral lower ext cellulitis Condition: Stable Hospital course: Patient is a 67 YO Female with ESRD on HD(M,W,F), Nicotine Dependence, DM, chronic pain syndrome on continued opioid medication and recently relocated to [place] from [place] present to ED for evaluation. Pt states that she has experienced redness, swelling, and purulent discharge from her heel wounds over the past week with worsening symptoms over the past 5 days. Pt was seen and evaluated by her PCP today and found to have diabetic foot ulcers. Pt instructed to seek further care at [facility] By the foot doctor. she denies any fever. Pt seen and evaluated in ED and found to have ESRD, and Bilateral foot cellulitis. Vascular surgery was consulted Angiogram done - Noted to have occlusion of proximal SFA, AT, and peroneal runoff. S/P Angiogram, atherectomy of right proximal SFA. Also the patient underwent debridement in the OR for Necrotic tissue overlying base of all 4 wounds. All 4 wounds debrided sharply to healthy tissue. R medial wound near great toe extends to bone. measurements (L x W x H) L distal: 1.5cm x1.5cm x0.3cm L heel: 3cm x 2.8cm x 0.6 cm R medial: 3 cm x3cm x 1cm R lateral: 3.5 cm x 2 cm x 0.7cm Wound care continued to follow the patient, she was advised about medication compliance, tobacco cessation. Surgery recommend HBOT which the patient is agreeable and information was given. PICC line was placed for Abx for osteomylitis as recommended by ID and they will follow with patient outpatient. she verablized understanding of all findings. Agreessive DM control was stressed. Discharge Diagnosis Bilateral Diabetic Foot Infection with diabetic foot ulceration Tobacco use disorder S/P SHARP Debridement in the OR Severe Peripheral arterial disease. Cellulitis Diabetic Mellitus with Hyperglycemia ESRD on HD Chronic.opiod. Dependance Disposition: [id number]/TX-[id number] HOME UNDER [facility] Time spent for discharge: 35 MINS Core Measure Documentation - Palliative Care Palliative Care/ Comfort Measures: Not Applicable - Core Measures Any of the following diagnoses?: none Exam - Physical Exam Narrative exam: VITAL SIGNS: Reviewed. GENERAL: The patient appeared well nourished and normally developed. Vital signs as documented. HEAD: No signs of head trauma. EYES: Pupils are equal. Extraocular motions intact. EARS: Hearing grossly intact. MOUTH: Oropharynx is normal. NECK: No adenopathy, no JVD. CHEST: Chest with clear breath sounds bilaterally. No wheezes, rales, or rhonchi. CARDIAC: Regular rate and rhythm. S1 and S2, without murmurs, gallops, or rubs. VASCULAR: No Edema. Peripheral pulses normal and equal in all extremities. ABDOMEN: Soft, without detectable tenderness. No sign of distention. No rebound or guarding, and no masses palpated. Bowel Sounds normal. MUSCULOSKELETAL: Good range of motion of all major joints. Extremities without clubbing, cyanosis or edema. NEUROLOGIC EXAM: Alert and oriented x 3. No focal sensory or strength deficits. Speech normal. Follows commands. PSYCHIATRIC: Mood normal. SKIN: Bilateral feet ulceration, dressing in place, No drainage noted. - Constitutional Vitals: Temp Pulse Resp BP Pulse Ox 98.6 F 63 20 128/59 98 07/04/18 07:21 07/04/18 07:21 07/04/18 08:29 07/04/18 07:21 07/04/18 07:21 Plan Activity: advance as tolerated, fall precautions Diet: diabetic, renal Wound: per wound nurse instructions Special Instructions: record daily BP diary, record blood sugar diary, smoking cessation Additional Instructions: Anticipate discharge on Ceftazidime post HD, 2gms IV Wed, 2gms IV Wednesday and 3 gms IV Wednesday and Vancomycin 750mg iIV post HD for 6 weeks ending. D/C Picc LINE AT THE END OF IV ABX Follow [facility] with: [facility] [Primary Care Provider] - 7 Days TIP DELAROSA MD [Staff Physician] - 7 Days RILEY HORTON MD [Staff Physician] - 7 Days ANDREAS REY DO [Staff Physician] - 7 Days [facility] [Outside] - 7 Days Prescriptions: Aspirin [Aspirin BABY CHEW TAB] 81 mg PO QDAY #30 tab.chew
[2018-07-04] MEDS: LANTUS SUB-Q SCH (09:34)
[2018-07-04] MEDS: PLAVIX PO SCH (09:35)
[2018-07-04] MEDS: BABY ASPIRIN PO SCH (09:35)
[2018-07-04] MEDS: RYTHMOL PO SCH (09:35)
[2018-07-04] MEDS: CORDARONE PO SCH (09:36)
[2018-07-04] MEDS: SODIUM CHLORIDE FLUSH SYRINGE 10 ML IV SCH (09:43)
[2018-07-04] MEDS: MAXIPIME/NS 1 GM/100 ML 1 GM/100 ML BAG IV SCH (09:43)
[2018-07-04] MEDS: TOPROL XL PO SCH (10:29)
[2018-07-04] MEDS: ZOLOFT PO SCH (10:29)
--- NOTE | 2018-07-04 11:49 | Progress Note ---
Assessment and Plan End Stage Renal Disease on hemodialysis: -HD today for clearance and volume removal, can be discharged after HD -Assess need for HD on daily basis -Fluid restriction of 1 liter per day -Renally dose medications Bilateral Diabetic Foot Infection: Cellulitis: -Wound care on board -Vascular surgery evaluated pt, s/p Angiogram, atherectomy of right proximal SFA with occlusion of proximal SFA, AT and peroneal runoff -General surgery evaluated pt, s/p excisional debridement of bilateral infected foot wounds. Diabetic Mellitus Type 2 on insulin: -On Insulin -As per primary team Chronic Pain: Narcotic Dependence: -On Narcotics -As per primary Subjective Date of service: 07/04/18 Principal diagnosis: ESRD Interval history: denies acute issues, ready to go home Objective - Vital Signs Vital signs: Vital Signs - 12hr 07/04/18 07/04/18 07/04/18 02:07 07:21 08:29 Temperature 98.3 F 98.6 F Pulse Rate 73 63 Pulse Rate [ From Monitor] Respiratory 18 20 20 Rate Blood Pressure 99/57 128/59 O2 Sat by Pulse 97 98 Oximetry 07/04/18 07/04/18 10:00 10:29 Temperature Pulse Rate 63 Pulse Rate [ 63 From Monitor] Respiratory 20 Rate Blood Pressure 128/59 O2 Sat by Pulse 98 Oximetry - General Appearance General appearance: well-developed, well-nourished, appears stated age EENT: ATNC, PERRL, mucous membranes moist Neck: no JVD, no carotid bruit Respiratory: Present: Clear to Ascultation. Absent: Rales, Ronchi Cardiology: regular, S1S2 Gastrointestinal: normoactive bowel sounds, no tenderness, no distended Integumentary: no rash, warm and dry Neurologic: no focal deficit, no asterixis, alert and oriented x3 Musculoskeletal: other (no edema in BLE) Psychiatric: mood/affect appropriate, cooperative - Lab 07/04/18 06:05 07/04/18 06:05 Most recent lab results Calcium 8.5 mg/dL (8.4-10.2) 07/04/18 06:05 Phosphorus 5.40 mg/dL (2.5-4.5) H 06/30/18 04:36 Medications & Allergies - Medications Allergies/Adverse Reactions: Allergies No Known Allergies Allergy (Verified 06/28/18 12:11) Home Medications: Home Medications Medication Instructions Recorded Confirmed Last Taken Type Amiodarone [Cordarone 200 MG TAB] 200 mg PO QDAY 06/28/18 06/28/18 Unknown History AtorvaSTATin [Lipitor] 10 mg PO QHS 06/28/18 06/28/18 Unknown History Clopidogrel Bisulfate [Plavix] 75 mg PO QDAY 06/28/18 06/28/18 Unknown History Doxepin [SINEquan] 100 mg PO QHS 06/28/18 06/28/18 Unknown History Gabapentin [Neurontin] 100 mg PO TID 06/28/18 06/28/18 Unknown History Insulin Detemir [Levemir Flextouch] 8 units SUB-Q DAILY 06/28/18 06/28/18 Unknown History Metoprolol Succinate [Toprol Xl] 25 mg PO DAILY 06/28/18 06/28/18 Unknown History Morphine Sulfate [Morphine Sulfate 60 mg PO Q12H 06/28/18 06/28/18 Unknown History ER] NIFEdipine [Nifedipine ER] 30 mg PO QDAY 06/28/18 06/28/18 Unknown History Oxycodone HCl [Roxicodone] 30 mg PO Q8H PRN 06/28/18 06/28/18 Unknown History Propafenone HCl 150 mg PO BID 06/28/18 06/28/18 Unknown History Sertraline [Zoloft] 100 mg PO QDAY 06/28/18 06/28/18 Unknown History Aspirin [Aspirin BABY CHEW TAB] 81 mg PO QDAY #30 tab.chew 07/04/18 Unknown Rx Active Medications: Generic Name Dose Route Start Last Admin Trade Name Freq PRN Reason Stop Dose Admin Acetaminophen 650 mg 06/28/18 14:53 Tylenol PO Q4H PRN Pain MILD(1-3)/Fever >100.5/LIANG Albuterol 2.5 mg 06/28/18 14:53 Proventil IH Q4HRT PRN Shortness Of Breath Amiodarone HCl 200 mg 06/29/18 10:00 07/04/18 09:36 Cordarone PO 200 mg QDAY JOSEF Administration Aspirin 81 mg 07/01/18 12:00 07/04/18 09:35 Baby Aspirin PO 81 mg QDAY JOSEF Administration Atorvastatin Calcium 10 mg 06/28/18 22:00 07/03/18 21:24 Lipitor PO 10 mg QHS JOSEF Administration Clopidogrel Bisulfate 75 mg 06/29/18 10:00 07/04/18 09:35 Plavix PO 75 mg QDAY JOSEF Administration Doxepin HCl 100 mg 06/28/18 22:00 07/03/18 21:23 Sinequan PO 100 mg QHS JOSEF Administration Fentanyl 50 mcg 06/30/18 10:08 06/30/18 11:14 Sublimaze IV 50 mcg Q5MIN PRN Administration Pain , Severe (7-10) Gabapentin 100 mg 06/28/18 20:00 07/04/18 08:29 Neurontin PO 100 mg TID JOSEF Administration Sodium Chloride 1,000 mls @ 42 mls/hr 06/30/18 11:00 06/30/18 10:51 Nacl 0.9% 1000 Ml IV 42 mls/hr DIRECT JOSEF Administration Metronidazole 500 mg in 100 mls @ 100 mls/hr 06/30/18 14:00 07/04/18 05:10 Flagyl 500 Mg/100 Ml IV 100 mls/hr Q8HR JOSEF Administration Protocol Cefepime HCl 1 gm in 100 mls @ 200 mls/hr 07/01/18 13:00 07/04/18 09:43 Maxipime/Ns 1 Gm/100 Ml IV 200 mls/hr Q24HR JOSEF Administration Protocol Vancomycin HCl 750 mg/ Sodium 265 mls @ 166.667 mls/hr 07/01/18 21:00 07/01/18 23:16 Chloride IV Infused [id number] JOSEF Infusion Sodium Chloride 100 mls @ 999 mls/hr 07/03/18 16:40 Nacl 0.9% IV NANCY PRN Hypotension Insulin Glargine 8 units 06/29/18 10:00 07/04/18 09:34 Lantus SUB-Q 8 units QDAY JOSEF Administration Metoprolol Succinate 25 mg 06/29/18 10:00 07/04/18 10:29 Toprol Xl PO Not Given DAILY [facility] Morphine Sulfate 60 mg 07/01/18 07:00 07/04/18 08:29 Ms Contin Er PO 60 mg Q12H JOSEF Administration Oxycodone HCl 30 mg 06/28/18 17:33 07/03/18 13:43 Roxicodone PO 30 mg Q8H PRN Administration Pain, Moderate (4-6) Propafenone HCl 150 mg 06/28/18 22:00 07/04/18 09:35 Rythmol PO 150 mg BID JOSEF Administration Sertraline HCl 100 mg 06/29/18 10:00 07/04/18 10:29 Zoloft PO 100 mg QDAY JOSEF Administration Sodium Chloride 10 ml 06/28/18 22:00 07/04/18 09:43 Sodium Chloride Flush Syringe 10 Ml IV 10 ml BID JOSEF Administration Sodium Chloride 10 ml 06/28/18 14:53 Sodium Chloride Flush Syringe 10 Ml IV PRN PRN LINE FLUSH
[2018-07-04] MEDS ORDERED: NACL 0.9 (PRIMING MACHINE ONLY DIALYSIS) MC ONE (13:08)
[2018-07-04 15:31] VITALS: BP 121/71
== END 2018-07-04 17:30 | disposition home health service (06) | DRG 270 ==
LOC: ED 11:42 → 2B-ACE 14:53
PROVIDERS: ADMIT Internal Medicine; ATTEND Internal Medicine
PROC: 5A1D70Z Performance of Urinary Filtration, Intermittent, Less than 6 Hours Per Day (ICD-10-PCS; 2018-06-29)
PROC: 0JBR0ZZ Excision of Left Foot Subcutaneous Tissue and Fascia, Open Approach (ICD-10-PCS; 2018-06-30)
PROC: 0JBR0ZZ Excision of Left Foot Subcutaneous Tissue and Fascia, Open Approach (ICD-10-PCS; 2018-06-30)
PROC: 0JBQ0ZZ Excision of Right Foot Subcutaneous Tissue and Fascia, Open Approach (ICD-10-PCS; 2018-06-30)
PROC: 0JBQ0ZZ Excision of Right Foot Subcutaneous Tissue and Fascia, Open Approach (ICD-10-PCS; 2018-06-30)
PROC: 02HV33Z Insertion of Infusion Device into Superior Vena Cava, Percutaneous Approach (ICD-10-PCS; principal; 2018-07-01)
PROC: 5A1D70Z Performance of Urinary Filtration, Intermittent, Less than 6 Hours Per Day (ICD-10-PCS; 2018-07-01)
PROC: 04CK3ZZ Extirpation of Matter from Right Femoral Artery, Percutaneous Approach (ICD-10-PCS; 2018-07-01)
PROC: 047K3Z1 Dilation of Right Femoral Artery using Drug-Coated Balloon, Percutaneous Approach (ICD-10-PCS; 2018-07-01)
PROC: B4101ZZ Fluoroscopy of Abdominal Aorta using Low Osmolar Contrast (ICD-10-PCS; 2018-07-01)
PROC: B41F1ZZ Fluoroscopy of Right Lower Extremity Arteries using Low Osmolar Contrast (ICD-10-PCS; 2018-07-01)
PROC: 5A1D70Z Performance of Urinary Filtration, Intermittent, Less than 6 Hours Per Day (ICD-10-PCS; 2018-07-04)
DX: E11.51 Type 2 diabetes mellitus with diabetic peripheral angiopathy without gangrene (principal); N18.6 End stage renal disease; L03.116 Cellulitis of left lower limb; M86.171 Other acute osteomyelitis, right ankle and foot; E46 Unspecified protein-calorie malnutrition; L03.115 Cellulitis of right lower limb; I12.0 Hypertensive chronic kidney disease with stage 5 chronic kidney disease or end stage renal disease; F11.20 Opioid dependence, uncomplicated; G89.29 Other chronic pain; F17.210 Nicotine dependence, cigarettes, uncomplicated; E11.69 Type 2 diabetes mellitus with other specified complication; I70.245 Atherosclerosis of native arteries of left leg with ulceration of other part of foot; L97.522 Non-pressure chronic ulcer of other part of left foot with fat layer exposed; I70.235 Atherosclerosis of native arteries of right leg with ulceration of other part of foot; E11.22 Type 2 diabetes mellitus with diabetic chronic kidney disease; L97.512 Non-pressure chronic ulcer of other part of right foot with fat layer exposed; E11.621 Type 2 diabetes mellitus with foot ulcer; E11.65 Type 2 diabetes mellitus with hyperglycemia; Z99.2 Dependence on renal dialysis; Z83.3 Family history of diabetes mellitus; Z95.828 Presence of other vascular implants and grafts; Z79.4 Long term (current) use of insulin; Z79.899 Other long term (current) drug therapy; Z90.710 Acquired absence of both cervix and uterus; Z68.26 Body mass index [BMI] 26.0-26.9, adult
CPT/HCPCS: 36415; 37225; 71045; 73721; 75710; 76937; 80048; 80053; 80202; 82962; 83036; 84100; 84134; 85007; 85025; 85027; 85652; 86140; 87075; 87076; 87116; 87186; 93005; 93010; 93922; 93925; G0378; A9270-GY; C1714; C1760; C1769; C1887; C2623; J0690; J0692; J1644; J1815; J2250; J2270; J2405; J3010; J3370; J7030; J7040; J7050; Q9967

== ENCOUNTER 2018-07-11 08:21 | Outpatient (CLI) | payer MEDICARE ==
[2018-07-11] MEDS ORDERED: AD OINTMENT TP SCH (10:00)
== END 2018-07-11 08:22 | disposition home or self-care (01) ==
LOC: WOUND 08:21
PROVIDERS: ATTEND Surgery
DX: E11.621 Type 2 diabetes mellitus with foot ulcer (principal); L97.422 Non-pressure chronic ulcer of left heel and midfoot with fat layer exposed; L97.512 Non-pressure chronic ulcer of other part of right foot with fat layer exposed; E11.69 Type 2 diabetes mellitus with other specified complication; M86.171 Other acute osteomyelitis, right ankle and foot
CPT/HCPCS: 11042; 11043; 11045; G0463; 99215

== ENCOUNTER 2018-07-25 08:48 | Outpatient (CLI) | payer MEDICARE ==
[2018-07-25] MEDS ORDERED: XYLOCAINE TOPICAL 4% TP ONE (10:00)
[2018-07-25] MEDS ORDERED: AD OINTMENT TP SCH (10:00)
== END 2018-07-25 08:49 | disposition home or self-care (01) ==
LOC: WOUND 08:48
PROVIDERS: ATTEND Surgery
DX: E11.621 Type 2 diabetes mellitus with foot ulcer (principal); L97.422 Non-pressure chronic ulcer of left heel and midfoot with fat layer exposed; L97.522 Non-pressure chronic ulcer of other part of left foot with fat layer exposed; L97.512 Non-pressure chronic ulcer of other part of right foot with fat layer exposed; I70.245 Atherosclerosis of native arteries of left leg with ulceration of other part of foot; I70.244 Atherosclerosis of native arteries of left leg with ulceration of heel and midfoot; I70.235 Atherosclerosis of native arteries of right leg with ulceration of other part of foot; E11.69 Type 2 diabetes mellitus with other specified complication; M86.171 Other acute osteomyelitis, right ankle and foot; E11.51 Type 2 diabetes mellitus with diabetic peripheral angiopathy without gangrene; F17.200 Nicotine dependence, unspecified, uncomplicated
CPT/HCPCS: A6250

== ENCOUNTER 2018-08-01 08:02 | Outpatient (CLI) | payer MEDICARE ==
[2018-08-01] MEDS ORDERED: XYLOCAINE TOPICAL 4% TP ONE (09:00)
== END 2018-08-01 08:03 | disposition home or self-care (01) ==
LOC: WOUND 08:02
PROVIDERS: ATTEND Surgery
DX: E11.621 Type 2 diabetes mellitus with foot ulcer (principal); L97.422 Non-pressure chronic ulcer of left heel and midfoot with fat layer exposed; L97.522 Non-pressure chronic ulcer of other part of left foot with fat layer exposed; L97.512 Non-pressure chronic ulcer of other part of right foot with fat layer exposed; E11.69 Type 2 diabetes mellitus with other specified complication; M86.171 Other acute osteomyelitis, right ankle and foot; E11.51 Type 2 diabetes mellitus with diabetic peripheral angiopathy without gangrene; F17.200 Nicotine dependence, unspecified, uncomplicated

== ENCOUNTER 2018-08-08 08:15 | Outpatient (CLI) | payer MEDICARE ==
[2018-08-08] MEDS ORDERED: AD OINTMENT TP SCH (08:30)
[2018-08-08] MEDS ORDERED: XYLOCAINE TOPICAL 4% TP ONE (08:30)
== END 2018-08-08 08:16 | disposition home or self-care (01) ==
LOC: WOUND 08:15
PROVIDERS: ATTEND Surgery
DX: E11.621 Type 2 diabetes mellitus with foot ulcer (principal); L97.422 Non-pressure chronic ulcer of left heel and midfoot with fat layer exposed; L97.512 Non-pressure chronic ulcer of other part of right foot with fat layer exposed; L97.522 Non-pressure chronic ulcer of other part of left foot with fat layer exposed; E11.69 Type 2 diabetes mellitus with other specified complication; M86.171 Other acute osteomyelitis, right ankle and foot; I70.235 Atherosclerosis of native arteries of right leg with ulceration of other part of foot; I70.244 Atherosclerosis of native arteries of left leg with ulceration of heel and midfoot; I70.245 Atherosclerosis of native arteries of left leg with ulceration of other part of foot
CPT/HCPCS: 82962; A6250

== ENCOUNTER 2018-08-09 09:40 | Outpatient (CLI) | payer MEDICARE | END 2018-08-09 09:41 | disposition home or self-care (01) | LOC: WOUND 09:40 | PROVIDERS: ATTEND Surgery | DX: E11.621 Type 2 diabetes mellitus with foot ulcer (principal); L97.421 Non-pressure chronic ulcer of left heel and midfoot limited to breakdown of skin; L97.511 Non-pressure chronic ulcer of other part of right foot limited to breakdown of skin; L97.521 Non-pressure chronic ulcer of other part of left foot limited to breakdown of skin; I70.235 Atherosclerosis of native arteries of right leg with ulceration of other part of foot; I70.244 Atherosclerosis of native arteries of left leg with ulceration of heel and midfoot; I70.245 Atherosclerosis of native arteries of left leg with ulceration of other part of foot; E11.69 Type 2 diabetes mellitus with other specified complication; M86.8X7 Other osteomyelitis, ankle and foot; M86.171 Other acute osteomyelitis, right ankle and foot; E11.51 Type 2 diabetes mellitus with diabetic peripheral angiopathy without gangrene | CPT/HCPCS: 82962; G0277; 99183 ==

== ENCOUNTER 2018-08-10 09:10 | Outpatient (CLI) | payer MEDICARE | END 2018-08-10 09:11 | disposition home or self-care (01) | LOC: WOUND 09:10 | PROVIDERS: ATTEND Surgery | DX: E11.621 Type 2 diabetes mellitus with foot ulcer (principal); L97.421 Non-pressure chronic ulcer of left heel and midfoot limited to breakdown of skin; I70.235 Atherosclerosis of native arteries of right leg with ulceration of other part of foot; L97.511 Non-pressure chronic ulcer of other part of right foot limited to breakdown of skin; I70.244 Atherosclerosis of native arteries of left leg with ulceration of heel and midfoot; I70.245 Atherosclerosis of native arteries of left leg with ulceration of other part of foot; L97.521 Non-pressure chronic ulcer of other part of left foot limited to breakdown of skin; E11.69 Type 2 diabetes mellitus with other specified complication; M86.8X7 Other osteomyelitis, ankle and foot; M86.171 Other acute osteomyelitis, right ankle and foot; E11.51 Type 2 diabetes mellitus with diabetic peripheral angiopathy without gangrene | CPT/HCPCS: 82962; G0277; 99183 ==

== ENCOUNTER 2018-08-16 09:50 | Outpatient (CLI) | payer MEDICARE | END 2018-08-16 09:51 | disposition home or self-care (01) | LOC: WOUND 09:50 | PROVIDERS: ATTEND Surgery | DX: E11.621 Type 2 diabetes mellitus with foot ulcer (principal); I70.235 Atherosclerosis of native arteries of right leg with ulceration of other part of foot; I70.245 Atherosclerosis of native arteries of left leg with ulceration of other part of foot; L97.521 Non-pressure chronic ulcer of other part of left foot limited to breakdown of skin; L97.511 Non-pressure chronic ulcer of other part of right foot limited to breakdown of skin; E11.69 Type 2 diabetes mellitus with other specified complication; M86.171 Other acute osteomyelitis, right ankle and foot; E11.51 Type 2 diabetes mellitus with diabetic peripheral angiopathy without gangrene | CPT/HCPCS: 99183; G0277 ==

== ENCOUNTER 2018-08-17 09:37 | Outpatient (CLI) | payer MEDICARE | END 2018-08-17 09:38 | disposition home or self-care (01) | LOC: WOUND 09:37 | PROVIDERS: ATTEND Surgery | DX: E11.621 Type 2 diabetes mellitus with foot ulcer (principal); I70.235 Atherosclerosis of native arteries of right leg with ulceration of other part of foot; I70.245 Atherosclerosis of native arteries of left leg with ulceration of other part of foot; L97.521 Non-pressure chronic ulcer of other part of left foot limited to breakdown of skin; L97.511 Non-pressure chronic ulcer of other part of right foot limited to breakdown of skin; E11.69 Type 2 diabetes mellitus with other specified complication; M86.171 Other acute osteomyelitis, right ankle and foot; E11.51 Type 2 diabetes mellitus with diabetic peripheral angiopathy without gangrene | CPT/HCPCS: 82962; G0277; 99183 ==

== ENCOUNTER 2018-08-18 09:39 | Outpatient (CLI) | payer MEDICARE | END 2018-08-18 09:40 | disposition home or self-care (01) | LOC: WOUND 09:39 | PROVIDERS: ATTEND Surgery | DX: E11.621 Type 2 diabetes mellitus with foot ulcer (principal); I70.235 Atherosclerosis of native arteries of right leg with ulceration of other part of foot; I70.245 Atherosclerosis of native arteries of left leg with ulceration of other part of foot; L97.521 Non-pressure chronic ulcer of other part of left foot limited to breakdown of skin; L97.511 Non-pressure chronic ulcer of other part of right foot limited to breakdown of skin; E66.9 Obesity, unspecified; M86.171 Other acute osteomyelitis, right ankle and foot; E11.51 Type 2 diabetes mellitus with diabetic peripheral angiopathy without gangrene | CPT/HCPCS: 82962; G0277; 99183 ==

== ENCOUNTER 2018-08-19 09:35 | Outpatient (CLI) | payer MEDICARE | END 2018-08-19 09:36 | disposition home or self-care (01) | LOC: WOUND 09:35 | PROVIDERS: ATTEND Surgery | DX: E11.621 Type 2 diabetes mellitus with foot ulcer (principal); L97.521 Non-pressure chronic ulcer of other part of left foot limited to breakdown of skin; L97.511 Non-pressure chronic ulcer of other part of right foot limited to breakdown of skin; I70.235 Atherosclerosis of native arteries of right leg with ulceration of other part of foot; I70.245 Atherosclerosis of native arteries of left leg with ulceration of other part of foot; E11.51 Type 2 diabetes mellitus with diabetic peripheral angiopathy without gangrene; E11.69 Type 2 diabetes mellitus with other specified complication; M86.171 Other acute osteomyelitis, right ankle and foot | CPT/HCPCS: 82962; 99183; G0277 ==

== ENCOUNTER 2018-08-22 08:42 | Outpatient (CLI) | payer MEDICARE ==
[2018-08-22] MEDS ORDERED: XYLOCAINE TOPICAL 4% TP ONE (09:30)
[2018-08-22] MEDS ORDERED: SILVER NITRATE TP ONE (09:30)
== END 2018-08-22 08:43 | disposition home or self-care (01) ==
LOC: WOUND 08:42
PROVIDERS: ATTEND Surgery
DX: E11.621 Type 2 diabetes mellitus with foot ulcer (principal); L97.422 Non-pressure chronic ulcer of left heel and midfoot with fat layer exposed; L97.522 Non-pressure chronic ulcer of other part of left foot with fat layer exposed; L97.512 Non-pressure chronic ulcer of other part of right foot with fat layer exposed; E11.51 Type 2 diabetes mellitus with diabetic peripheral angiopathy without gangrene; I70.244 Atherosclerosis of native arteries of left leg with ulceration of heel and midfoot; I70.245 Atherosclerosis of native arteries of left leg with ulceration of other part of foot; I70.235 Atherosclerosis of native arteries of right leg with ulceration of other part of foot; E11.69 Type 2 diabetes mellitus with other specified complication; M86.171 Other acute osteomyelitis, right ankle and foot
CPT/HCPCS: 11042; 82962; G0277; 99183

== ENCOUNTER 2018-08-23 09:45 | Outpatient (CLI) | payer MEDICARE | END 2018-08-23 09:46 | disposition home or self-care (01) | LOC: WOUND 09:45 | PROVIDERS: ATTEND Surgery | DX: E11.621 Type 2 diabetes mellitus with foot ulcer (principal); L97.422 Non-pressure chronic ulcer of left heel and midfoot with fat layer exposed; L97.522 Non-pressure chronic ulcer of other part of left foot with fat layer exposed; E11.51 Type 2 diabetes mellitus with diabetic peripheral angiopathy without gangrene; I70.244 Atherosclerosis of native arteries of left leg with ulceration of heel and midfoot; I70.245 Atherosclerosis of native arteries of left leg with ulceration of other part of foot; I70.235 Atherosclerosis of native arteries of right leg with ulceration of other part of foot; E11.69 Type 2 diabetes mellitus with other specified complication; M86.171 Other acute osteomyelitis, right ankle and foot | CPT/HCPCS: 82962; 99183; G0277 ==

== ENCOUNTER 2018-08-24 09:50 | Outpatient (CLI) | payer MEDICARE | END 2018-08-24 09:51 | disposition home or self-care (01) | LOC: WOUND 09:50 | PROVIDERS: ATTEND Surgery | DX: E11.621 Type 2 diabetes mellitus with foot ulcer (principal); L97.521 Non-pressure chronic ulcer of other part of left foot limited to breakdown of skin; L97.511 Non-pressure chronic ulcer of other part of right foot limited to breakdown of skin; I70.235 Atherosclerosis of native arteries of right leg with ulceration of other part of foot; I70.245 Atherosclerosis of native arteries of left leg with ulceration of other part of foot; E11.69 Type 2 diabetes mellitus with other specified complication; M86.8X7 Other osteomyelitis, ankle and foot; E11.51 Type 2 diabetes mellitus with diabetic peripheral angiopathy without gangrene | CPT/HCPCS: 82962; G0277; 99183 ==

== ENCOUNTER 2018-08-25 09:46 | Outpatient (CLI) | payer MEDICARE | END 2018-08-25 09:47 | disposition home or self-care (01) | LOC: WOUND 09:46 | PROVIDERS: ATTEND Surgery | DX: E11.621 Type 2 diabetes mellitus with foot ulcer (principal); L97.422 Non-pressure chronic ulcer of left heel and midfoot with fat layer exposed; L97.522 Non-pressure chronic ulcer of other part of left foot with fat layer exposed; E11.51 Type 2 diabetes mellitus with diabetic peripheral angiopathy without gangrene; I70.244 Atherosclerosis of native arteries of left leg with ulceration of heel and midfoot; I70.245 Atherosclerosis of native arteries of left leg with ulceration of other part of foot; I70.235 Atherosclerosis of native arteries of right leg with ulceration of other part of foot; E11.69 Type 2 diabetes mellitus with other specified complication; M86.171 Other acute osteomyelitis, right ankle and foot | CPT/HCPCS: 82962; G0277; 99183 ==

== ENCOUNTER 2018-08-26 09:39 | Outpatient (CLI) | payer MEDICARE | END 2018-08-26 09:40 | disposition home or self-care (01) | LOC: WOUND 09:39 | PROVIDERS: ATTEND Surgery | DX: E11.621 Type 2 diabetes mellitus with foot ulcer (principal); L97.521 Non-pressure chronic ulcer of other part of left foot limited to breakdown of skin; L97.511 Non-pressure chronic ulcer of other part of right foot limited to breakdown of skin; H93.8X3 Other specified disorders of ear, bilateral; E11.69 Type 2 diabetes mellitus with other specified complication; M86.8X7 Other osteomyelitis, ankle and foot; I70.235 Atherosclerosis of native arteries of right leg with ulceration of other part of foot; I70.245 Atherosclerosis of native arteries of left leg with ulceration of other part of foot; E11.51 Type 2 diabetes mellitus with diabetic peripheral angiopathy without gangrene | CPT/HCPCS: 82962; G0463; 99212 ==

== ENCOUNTER 2018-08-29 08:39 | Outpatient (CLI) | payer MEDICARE ==
[2018-08-29] MEDS ORDERED: XYLOCAINE TOPICAL 4% TP ONE (09:30)
== END 2018-08-29 08:40 | disposition home or self-care (01) ==
LOC: WOUND 08:39
PROVIDERS: ATTEND Surgery
DX: E11.621 Type 2 diabetes mellitus with foot ulcer (principal); I70.244 Atherosclerosis of native arteries of left leg with ulceration of heel and midfoot; I70.235 Atherosclerosis of native arteries of right leg with ulceration of other part of foot; L97.422 Non-pressure chronic ulcer of left heel and midfoot with fat layer exposed; L97.522 Non-pressure chronic ulcer of other part of left foot with fat layer exposed; E11.51 Type 2 diabetes mellitus with diabetic peripheral angiopathy without gangrene; E11.69 Type 2 diabetes mellitus with other specified complication; M86.171 Other acute osteomyelitis, right ankle and foot
CPT/HCPCS: 11042; 82962; G0277; 99183

== ENCOUNTER 2018-08-30 09:44 | Outpatient (CLI) | payer MEDICARE | END 2018-08-30 09:45 | disposition home or self-care (01) | LOC: WOUND 09:44 | PROVIDERS: ATTEND Surgery | DX: E11.621 Type 2 diabetes mellitus with foot ulcer (principal); L97.521 Non-pressure chronic ulcer of other part of left foot limited to breakdown of skin; L97.511 Non-pressure chronic ulcer of other part of right foot limited to breakdown of skin; E11.69 Type 2 diabetes mellitus with other specified complication; M86.171 Other acute osteomyelitis, right ankle and foot; I70.235 Atherosclerosis of native arteries of right leg with ulceration of other part of foot; I70.245 Atherosclerosis of native arteries of left leg with ulceration of other part of foot; E11.51 Type 2 diabetes mellitus with diabetic peripheral angiopathy without gangrene | CPT/HCPCS: 82962; G0277; 99183 ==

== ENCOUNTER 2018-09-07 09:49 | Outpatient (CLI) | payer MEDICARE | END 2018-09-07 09:50 | disposition home or self-care (01) | LOC: WOUND 09:49 | PROVIDERS: ATTEND Surgery | DX: E11.621 Type 2 diabetes mellitus with foot ulcer (principal); I70.244 Atherosclerosis of native arteries of left leg with ulceration of heel and midfoot; L97.422 Non-pressure chronic ulcer of left heel and midfoot with fat layer exposed; I70.235 Atherosclerosis of native arteries of right leg with ulceration of other part of foot; L97.513 Non-pressure chronic ulcer of other part of right foot with necrosis of muscle; E11.69 Type 2 diabetes mellitus with other specified complication; M86.171 Other acute osteomyelitis, right ankle and foot | CPT/HCPCS: 82962; 99183; G0277 ==

== ENCOUNTER 2018-09-09 09:55 | Outpatient (CLI) | payer MEDICARE | END 2018-09-09 09:56 | disposition home or self-care (01) | LOC: WOUND 09:55 | PROVIDERS: ATTEND Surgery | DX: E11.621 Type 2 diabetes mellitus with foot ulcer (principal); L97.513 Non-pressure chronic ulcer of other part of right foot with necrosis of muscle | CPT/HCPCS: 82962 ==

== ENCOUNTER 2018-09-12 08:26 | Outpatient (CLI) | payer MEDICARE ==
[2018-09-12] MEDS ORDERED: XYLOCAINE TOPICAL 4% TP ONE (10:00)
== END 2018-09-12 08:27 | disposition home or self-care (01) ==
LOC: WOUND 08:26
PROVIDERS: ATTEND Surgery
DX: E11.621 Type 2 diabetes mellitus with foot ulcer (principal); L97.422 Non-pressure chronic ulcer of left heel and midfoot with fat layer exposed; I70.244 Atherosclerosis of native arteries of left leg with ulceration of heel and midfoot; I70.235 Atherosclerosis of native arteries of right leg with ulceration of other part of foot; L97.513 Non-pressure chronic ulcer of other part of right foot with necrosis of muscle; I70.245 Atherosclerosis of native arteries of left leg with ulceration of other part of foot; L97.523 Non-pressure chronic ulcer of other part of left foot with necrosis of muscle; E11.69 Type 2 diabetes mellitus with other specified complication; M86.8X7 Other osteomyelitis, ankle and foot; E11.51 Type 2 diabetes mellitus with diabetic peripheral angiopathy without gangrene; F17.200 Nicotine dependence, unspecified, uncomplicated
CPT/HCPCS: C5275; Q4117

== ENCOUNTER 2018-09-14 09:45 | Outpatient (CLI) | payer MEDICARE | END 2018-09-14 09:46 | disposition home or self-care (01) | LOC: WOUND 09:45 | PROVIDERS: ATTEND Surgery | DX: E11.621 Type 2 diabetes mellitus with foot ulcer (principal); L97.422 Non-pressure chronic ulcer of left heel and midfoot with fat layer exposed; L97.513 Non-pressure chronic ulcer of other part of right foot with necrosis of muscle; L97.523 Non-pressure chronic ulcer of other part of left foot with necrosis of muscle; E11.69 Type 2 diabetes mellitus with other specified complication; M86.8X7 Other osteomyelitis, ankle and foot; I70.235 Atherosclerosis of native arteries of right leg with ulceration of other part of foot; I70.244 Atherosclerosis of native arteries of left leg with ulceration of heel and midfoot; E11.51 Type 2 diabetes mellitus with diabetic peripheral angiopathy without gangrene; F17.200 Nicotine dependence, unspecified, uncomplicated | CPT/HCPCS: 82962; G0277; 99183 ==

== ENCOUNTER 2018-09-15 09:35 | Outpatient (CLI) | payer MEDICARE | END 2018-09-15 09:36 | disposition home or self-care (01) | LOC: WOUND 09:35 | PROVIDERS: ATTEND Surgery | DX: E11.621 Type 2 diabetes mellitus with foot ulcer (principal); L97.422 Non-pressure chronic ulcer of left heel and midfoot with fat layer exposed; L97.513 Non-pressure chronic ulcer of other part of right foot with necrosis of muscle; L97.523 Non-pressure chronic ulcer of other part of left foot with necrosis of muscle; E11.69 Type 2 diabetes mellitus with other specified complication; M86.8X7 Other osteomyelitis, ankle and foot; I70.235 Atherosclerosis of native arteries of right leg with ulceration of other part of foot; I70.244 Atherosclerosis of native arteries of left leg with ulceration of heel and midfoot; E11.51 Type 2 diabetes mellitus with diabetic peripheral angiopathy without gangrene; F17.200 Nicotine dependence, unspecified, uncomplicated | CPT/HCPCS: 82962; G0277; 99183 ==

== ENCOUNTER 2018-09-16 09:40 | Outpatient (CLI) | payer MEDICARE | END 2018-09-16 09:41 | disposition home or self-care (01) | LOC: WOUND 09:40 | PROVIDERS: ATTEND Surgery | DX: E11.621 Type 2 diabetes mellitus with foot ulcer (principal); L97.422 Non-pressure chronic ulcer of left heel and midfoot with fat layer exposed; L97.513 Non-pressure chronic ulcer of other part of right foot with necrosis of muscle; L97.523 Non-pressure chronic ulcer of other part of left foot with necrosis of muscle; E11.69 Type 2 diabetes mellitus with other specified complication; M86.171 Other acute osteomyelitis, right ankle and foot; I70.203 Unspecified atherosclerosis of native arteries of extremities, bilateral legs; E11.51 Type 2 diabetes mellitus with diabetic peripheral angiopathy without gangrene; Z87.891 Personal history of nicotine dependence | CPT/HCPCS: 82962; 99183; G0277 ==

== ENCOUNTER 2018-09-20 09:36 | Outpatient (CLI) | payer MEDICARE | END 2018-09-20 09:37 | disposition home or self-care (01) | LOC: WOUND 09:36 | PROVIDERS: ATTEND Surgery | DX: E11.621 Type 2 diabetes mellitus with foot ulcer (principal); L97.422 Non-pressure chronic ulcer of left heel and midfoot with fat layer exposed; L97.513 Non-pressure chronic ulcer of other part of right foot with necrosis of muscle; E11.69 Type 2 diabetes mellitus with other specified complication; M86.171 Other acute osteomyelitis, right ankle and foot; E11.51 Type 2 diabetes mellitus with diabetic peripheral angiopathy without gangrene; I70.203 Unspecified atherosclerosis of native arteries of extremities, bilateral legs; Z87.891 Personal history of nicotine dependence | CPT/HCPCS: 82962; 99183; G0277 ==

== ENCOUNTER 2018-09-22 09:16 | Outpatient (CLI) | payer MEDICARE | END 2018-09-22 09:17 | disposition home or self-care (01) | LOC: WOUND 09:16 | PROVIDERS: ATTEND Surgery | DX: E11.621 Type 2 diabetes mellitus with foot ulcer (principal); L97.422 Non-pressure chronic ulcer of left heel and midfoot with fat layer exposed; L97.513 Non-pressure chronic ulcer of other part of right foot with necrosis of muscle; E11.69 Type 2 diabetes mellitus with other specified complication; M86.171 Other acute osteomyelitis, right ankle and foot; E11.51 Type 2 diabetes mellitus with diabetic peripheral angiopathy without gangrene; I70.203 Unspecified atherosclerosis of native arteries of extremities, bilateral legs; Z87.891 Personal history of nicotine dependence | CPT/HCPCS: 82962; 99183; G0277 ==

== ENCOUNTER 2018-09-23 09:40 | Outpatient (CLI) | payer MEDICARE | END 2018-09-23 09:41 | disposition home or self-care (01) | LOC: WOUND 09:40 | PROVIDERS: ATTEND Surgery | DX: E11.621 Type 2 diabetes mellitus with foot ulcer (principal); L97.422 Non-pressure chronic ulcer of left heel and midfoot with fat layer exposed; L97.513 Non-pressure chronic ulcer of other part of right foot with necrosis of muscle; E11.69 Type 2 diabetes mellitus with other specified complication; M86.171 Other acute osteomyelitis, right ankle and foot; E11.51 Type 2 diabetes mellitus with diabetic peripheral angiopathy without gangrene; I70.203 Unspecified atherosclerosis of native arteries of extremities, bilateral legs; Z87.891 Personal history of nicotine dependence | CPT/HCPCS: 82962; 99183; G0277 ==

== ENCOUNTER 2018-09-26 08:48 | Outpatient (CLI) | payer MEDICARE ==
[2018-09-26] MEDS ORDERED: XYLOCAINE TOPICAL 4% TP ONE (12:00)
== END 2018-09-26 08:49 | disposition home or self-care (01) ==
LOC: WOUND 08:48
PROVIDERS: ATTEND Surgery
DX: E11.621 Type 2 diabetes mellitus with foot ulcer (principal); L97.422 Non-pressure chronic ulcer of left heel and midfoot with fat layer exposed; L97.513 Non-pressure chronic ulcer of other part of right foot with necrosis of muscle; L97.523 Non-pressure chronic ulcer of other part of left foot with necrosis of muscle; E11.69 Type 2 diabetes mellitus with other specified complication; M86.171 Other acute osteomyelitis, right ankle and foot; E11.51 Type 2 diabetes mellitus with diabetic peripheral angiopathy without gangrene; I70.203 Unspecified atherosclerosis of native arteries of extremities, bilateral legs; Z87.891 Personal history of nicotine dependence
CPT/HCPCS: 82962; C5275; G0277; Q4117; 99183

== ENCOUNTER 2018-09-27 09:41 | Outpatient (CLI) | payer MEDICARE | END 2018-09-27 09:42 | disposition home or self-care (01) | LOC: WOUND 09:41 | PROVIDERS: ATTEND Surgery | DX: E11.621 Type 2 diabetes mellitus with foot ulcer (principal); L97.422 Non-pressure chronic ulcer of left heel and midfoot with fat layer exposed; L97.513 Non-pressure chronic ulcer of other part of right foot with necrosis of muscle; E11.69 Type 2 diabetes mellitus with other specified complication; M86.171 Other acute osteomyelitis, right ankle and foot; E11.51 Type 2 diabetes mellitus with diabetic peripheral angiopathy without gangrene; I70.203 Unspecified atherosclerosis of native arteries of extremities, bilateral legs; Z87.891 Personal history of nicotine dependence | CPT/HCPCS: 82962; G0277; 99183 ==

== ENCOUNTER 2018-09-30 09:51 | Outpatient (CLI) | payer MEDICARE | END 2018-09-30 09:52 | disposition home or self-care (01) | LOC: WOUND 09:51 | PROVIDERS: ATTEND Surgery | DX: E11.621 Type 2 diabetes mellitus with foot ulcer (principal); L97.513 Non-pressure chronic ulcer of other part of right foot with necrosis of muscle; L97.422 Non-pressure chronic ulcer of left heel and midfoot with fat layer exposed; L97.523 Non-pressure chronic ulcer of other part of left foot with necrosis of muscle; E11.69 Type 2 diabetes mellitus with other specified complication; M86.8X7 Other osteomyelitis, ankle and foot; I70.235 Atherosclerosis of native arteries of right leg with ulceration of other part of foot; I70.244 Atherosclerosis of native arteries of left leg with ulceration of heel and midfoot; I70.245 Atherosclerosis of native arteries of left leg with ulceration of other part of foot; E11.51 Type 2 diabetes mellitus with diabetic peripheral angiopathy without gangrene | CPT/HCPCS: 82962; G0277; 99183 ==

== ENCOUNTER 2018-10-03 09:16 | Outpatient (CLI) | payer MEDICARE | END 2018-10-03 09:17 | disposition home or self-care (01) | LOC: WOUND 09:16 | PROVIDERS: ATTEND Internal Medicine | DX: E11.621 Type 2 diabetes mellitus with foot ulcer (principal); I70.235 Atherosclerosis of native arteries of right leg with ulceration of other part of foot; I70.244 Atherosclerosis of native arteries of left leg with ulceration of heel and midfoot; I70.245 Atherosclerosis of native arteries of left leg with ulceration of other part of foot; L97.513 Non-pressure chronic ulcer of other part of right foot with necrosis of muscle; L97.422 Non-pressure chronic ulcer of left heel and midfoot with fat layer exposed; L97.523 Non-pressure chronic ulcer of other part of left foot with necrosis of muscle; E11.69 Type 2 diabetes mellitus with other specified complication; M86.8X7 Other osteomyelitis, ankle and foot; E11.51 Type 2 diabetes mellitus with diabetic peripheral angiopathy without gangrene | CPT/HCPCS: 82962; G0277; 99183 ==

== ENCOUNTER 2018-10-04 09:56 | Outpatient (CLI) | payer MEDICARE ==
[2018-10-04] MEDS ORDERED: XYLOCAINE TOPICAL 4% TP ONE (11:52)
[2018-10-04] MEDS ORDERED: SILVER NITRATE TP ONE (11:52)
== END 2018-10-04 09:57 | disposition home or self-care (01) ==
LOC: WOUND 09:56
PROVIDERS: ATTEND Surgery
DX: E11.621 Type 2 diabetes mellitus with foot ulcer (principal); I70.235 Atherosclerosis of native arteries of right leg with ulceration of other part of foot; I70.244 Atherosclerosis of native arteries of left leg with ulceration of heel and midfoot; I70.245 Atherosclerosis of native arteries of left leg with ulceration of other part of foot; L97.513 Non-pressure chronic ulcer of other part of right foot with necrosis of muscle; L97.422 Non-pressure chronic ulcer of left heel and midfoot with fat layer exposed; L97.523 Non-pressure chronic ulcer of other part of left foot with necrosis of muscle; E11.69 Type 2 diabetes mellitus with other specified complication; M86.8X7 Other osteomyelitis, ankle and foot
CPT/HCPCS: 82962; G0277; 99183

== ENCOUNTER 2018-10-05 10:13 | Outpatient (CLI) | payer MEDICARE | END 2018-10-05 10:14 | disposition home or self-care (01) | LOC: WOUND 10:13 | PROVIDERS: ATTEND Surgery | DX: E11.621 Type 2 diabetes mellitus with foot ulcer (principal); I70.235 Atherosclerosis of native arteries of right leg with ulceration of other part of foot; I70.244 Atherosclerosis of native arteries of left leg with ulceration of heel and midfoot; I70.245 Atherosclerosis of native arteries of left leg with ulceration of other part of foot; L97.513 Non-pressure chronic ulcer of other part of right foot with necrosis of muscle; L97.422 Non-pressure chronic ulcer of left heel and midfoot with fat layer exposed; L97.523 Non-pressure chronic ulcer of other part of left foot with necrosis of muscle; E11.69 Type 2 diabetes mellitus with other specified complication; M86.8X7 Other osteomyelitis, ankle and foot | CPT/HCPCS: 82962; 99183; G0277 ==

== ENCOUNTER 2018-10-06 09:45 | Outpatient (CLI) | payer MEDICARE | END 2018-10-06 09:46 | disposition home or self-care (01) | LOC: WOUND 09:45 | PROVIDERS: ATTEND Surgery | DX: E11.621 Type 2 diabetes mellitus with foot ulcer (principal); I70.235 Atherosclerosis of native arteries of right leg with ulceration of other part of foot; I70.244 Atherosclerosis of native arteries of left leg with ulceration of heel and midfoot; I70.245 Atherosclerosis of native arteries of left leg with ulceration of other part of foot; L97.513 Non-pressure chronic ulcer of other part of right foot with necrosis of muscle; L97.422 Non-pressure chronic ulcer of left heel and midfoot with fat layer exposed; L97.523 Non-pressure chronic ulcer of other part of left foot with necrosis of muscle; E11.69 Type 2 diabetes mellitus with other specified complication; M86.8X7 Other osteomyelitis, ankle and foot | CPT/HCPCS: 82962; G0277; 99183 ==

== ENCOUNTER 2018-10-10 09:46 | Outpatient (CLI) | payer MEDICARE | END 2018-10-10 09:47 | disposition home or self-care (01) | LOC: WOUND 09:46 | PROVIDERS: ATTEND Surgery | DX: E11.621 Type 2 diabetes mellitus with foot ulcer (principal); I70.235 Atherosclerosis of native arteries of right leg with ulceration of other part of foot; I70.244 Atherosclerosis of native arteries of left leg with ulceration of heel and midfoot; I70.245 Atherosclerosis of native arteries of left leg with ulceration of other part of foot; L97.513 Non-pressure chronic ulcer of other part of right foot with necrosis of muscle; L97.422 Non-pressure chronic ulcer of left heel and midfoot with fat layer exposed; L97.523 Non-pressure chronic ulcer of other part of left foot with necrosis of muscle; E11.69 Type 2 diabetes mellitus with other specified complication; M86.8X7 Other osteomyelitis, ankle and foot | CPT/HCPCS: 82962; 99183; G0277 ==

== ENCOUNTER 2018-10-11 09:23 | Outpatient (CLI) | payer MEDICARE | END 2018-10-11 09:24 | disposition home or self-care (01) | LOC: WOUND 09:23 | PROVIDERS: ATTEND Surgery | DX: E11.621 Type 2 diabetes mellitus with foot ulcer (principal); I70.235 Atherosclerosis of native arteries of right leg with ulceration of other part of foot; I70.244 Atherosclerosis of native arteries of left leg with ulceration of heel and midfoot; I70.245 Atherosclerosis of native arteries of left leg with ulceration of other part of foot; L97.513 Non-pressure chronic ulcer of other part of right foot with necrosis of muscle; L97.422 Non-pressure chronic ulcer of left heel and midfoot with fat layer exposed; L97.523 Non-pressure chronic ulcer of other part of left foot with necrosis of muscle; E11.69 Type 2 diabetes mellitus with other specified complication; M86.8X7 Other osteomyelitis, ankle and foot | CPT/HCPCS: 82962; G0277; 99183 ==

== ENCOUNTER 2018-10-14 09:21 | Outpatient (CLI) | payer MEDICARE | END 2018-10-14 09:22 | disposition home or self-care (01) | LOC: WOUND 09:21 | PROVIDERS: ATTEND Surgery | DX: E11.621 Type 2 diabetes mellitus with foot ulcer (principal); I70.235 Atherosclerosis of native arteries of right leg with ulceration of other part of foot; I70.244 Atherosclerosis of native arteries of left leg with ulceration of heel and midfoot; I70.245 Atherosclerosis of native arteries of left leg with ulceration of other part of foot; L97.513 Non-pressure chronic ulcer of other part of right foot with necrosis of muscle; L97.422 Non-pressure chronic ulcer of left heel and midfoot with fat layer exposed; L97.523 Non-pressure chronic ulcer of other part of left foot with necrosis of muscle; E11.69 Type 2 diabetes mellitus with other specified complication; M86.8X7 Other osteomyelitis, ankle and foot | CPT/HCPCS: 82962; G0277; 99183 ==

== ENCOUNTER 2018-10-17 09:40 | Outpatient (CLI) | payer MEDICARE | END 2018-10-17 09:41 | disposition home or self-care (01) | LOC: WOUND 09:40 | PROVIDERS: ATTEND Surgery | DX: E11.621 Type 2 diabetes mellitus with foot ulcer (principal); I70.235 Atherosclerosis of native arteries of right leg with ulceration of other part of foot; I70.244 Atherosclerosis of native arteries of left leg with ulceration of heel and midfoot; I70.245 Atherosclerosis of native arteries of left leg with ulceration of other part of foot; L97.513 Non-pressure chronic ulcer of other part of right foot with necrosis of muscle; L97.422 Non-pressure chronic ulcer of left heel and midfoot with fat layer exposed; L97.523 Non-pressure chronic ulcer of other part of left foot with necrosis of muscle; E11.69 Type 2 diabetes mellitus with other specified complication; M86.8X7 Other osteomyelitis, ankle and foot | CPT/HCPCS: 82962; G0277; 99183 ==

== ENCOUNTER 2018-10-19 09:38 | Outpatient (CLI) | payer MEDICARE | END 2018-10-19 09:39 | disposition home or self-care (01) | LOC: WOUND 09:38 | PROVIDERS: ATTEND Surgery | DX: E11.621 Type 2 diabetes mellitus with foot ulcer (principal); I70.235 Atherosclerosis of native arteries of right leg with ulceration of other part of foot; I70.244 Atherosclerosis of native arteries of left leg with ulceration of heel and midfoot; I70.245 Atherosclerosis of native arteries of left leg with ulceration of other part of foot; L97.513 Non-pressure chronic ulcer of other part of right foot with necrosis of muscle; L97.422 Non-pressure chronic ulcer of left heel and midfoot with fat layer exposed; L97.523 Non-pressure chronic ulcer of other part of left foot with necrosis of muscle; E11.69 Type 2 diabetes mellitus with other specified complication; M86.8X7 Other osteomyelitis, ankle and foot | CPT/HCPCS: 82962; G0277; 99183 ==

== ENCOUNTER 2018-10-28 09:27 | Outpatient (CLI) | payer MEDICARE | END 2018-10-28 09:28 | disposition home or self-care (01) | LOC: WOUND 09:27 | PROVIDERS: ATTEND Surgery | DX: E11.621 Type 2 diabetes mellitus with foot ulcer (principal); I70.235 Atherosclerosis of native arteries of right leg with ulceration of other part of foot; I70.244 Atherosclerosis of native arteries of left leg with ulceration of heel and midfoot; I70.245 Atherosclerosis of native arteries of left leg with ulceration of other part of foot; L97.513 Non-pressure chronic ulcer of other part of right foot with necrosis of muscle; L97.422 Non-pressure chronic ulcer of left heel and midfoot with fat layer exposed; L97.523 Non-pressure chronic ulcer of other part of left foot with necrosis of muscle; E11.69 Type 2 diabetes mellitus with other specified complication; M86.8X7 Other osteomyelitis, ankle and foot | CPT/HCPCS: 82962; 99183; G0277 ==

== ENCOUNTER 2018-10-31 08:47 | Outpatient (CLI) | payer MEDICARE ==
[2018-10-31] MEDS ORDERED: XYLOCAINE TOPICAL 4% TP ONE (09:24)
[2018-10-31] MEDS ORDERED: SILVER NITRATE TP ONE (09:25)
[2018-10-31] MEDS ORDERED: SODIUM CHLORIDE FLUSH SYRINGE 10 ML IV PRN (09:40)
== END 2018-10-31 08:48 | disposition home or self-care (01) ==
LOC: WOUND 08:47
PROVIDERS: ATTEND Surgery
DX: E11.621 Type 2 diabetes mellitus with foot ulcer (principal); I70.235 Atherosclerosis of native arteries of right leg with ulceration of other part of foot; L97.513 Non-pressure chronic ulcer of other part of right foot with necrosis of muscle; I70.244 Atherosclerosis of native arteries of left leg with ulceration of heel and midfoot; L97.422 Non-pressure chronic ulcer of left heel and midfoot with fat layer exposed; I70.245 Atherosclerosis of native arteries of left leg with ulceration of other part of foot; L97.523 Non-pressure chronic ulcer of other part of left foot with necrosis of muscle; E11.69 Type 2 diabetes mellitus with other specified complication; M86.171 Other acute osteomyelitis, right ankle and foot; E11.51 Type 2 diabetes mellitus with diabetic peripheral angiopathy without gangrene; F17.200 Nicotine dependence, unspecified, uncomplicated
CPT/HCPCS: 11042; 82962; G0277; 99183

== ENCOUNTER 2018-11-01 09:18 | Outpatient (CLI) | payer MEDICARE | END 2018-11-01 09:19 | disposition home or self-care (01) | LOC: WOUND 09:18 | PROVIDERS: ATTEND Surgery | DX: E11.621 Type 2 diabetes mellitus with foot ulcer (principal); I70.235 Atherosclerosis of native arteries of right leg with ulceration of other part of foot; L97.513 Non-pressure chronic ulcer of other part of right foot with necrosis of muscle; I70.244 Atherosclerosis of native arteries of left leg with ulceration of heel and midfoot; L97.422 Non-pressure chronic ulcer of left heel and midfoot with fat layer exposed; I70.245 Atherosclerosis of native arteries of left leg with ulceration of other part of foot; L97.523 Non-pressure chronic ulcer of other part of left foot with necrosis of muscle; E11.69 Type 2 diabetes mellitus with other specified complication; M86.171 Other acute osteomyelitis, right ankle and foot; E11.51 Type 2 diabetes mellitus with diabetic peripheral angiopathy without gangrene; F17.200 Nicotine dependence, unspecified, uncomplicated | CPT/HCPCS: 82962; 99183; G0277 ==

== ENCOUNTER 2018-11-02 09:32 | Outpatient (CLI) | payer MEDICARE | END 2018-11-02 09:33 | disposition home or self-care (01) | LOC: WOUND 09:32 | PROVIDERS: ATTEND Surgery | DX: E11.621 Type 2 diabetes mellitus with foot ulcer (principal); I70.235 Atherosclerosis of native arteries of right leg with ulceration of other part of foot; L97.513 Non-pressure chronic ulcer of other part of right foot with necrosis of muscle; I70.244 Atherosclerosis of native arteries of left leg with ulceration of heel and midfoot; L97.422 Non-pressure chronic ulcer of left heel and midfoot with fat layer exposed; I70.245 Atherosclerosis of native arteries of left leg with ulceration of other part of foot; L97.523 Non-pressure chronic ulcer of other part of left foot with necrosis of muscle; E11.69 Type 2 diabetes mellitus with other specified complication; M86.171 Other acute osteomyelitis, right ankle and foot; E11.51 Type 2 diabetes mellitus with diabetic peripheral angiopathy without gangrene; F17.200 Nicotine dependence, unspecified, uncomplicated | CPT/HCPCS: 82962; G0277; 99183 ==